=== PATIENT | male | born 1950 | race Caucasian/White ===

== ENCOUNTER 2022-01-30 10:48 | Inpatient (IN) | payer MEDICARE, SELFPAY ==
[2022-01-30 09:56] VITALS: PULSE 72
[2022-01-30 10:40] VITALS: BP 140/87; PULSE 80; RESP 18; TEMP 36.4; O2SAT 100
[2022-01-30 10:53] VITALS: BMI 23.3
--- NOTE | 2022-01-30 10:57 | PCM.HP.STD ---
[facility] - General General Date of Admission: 01/30/22 Date of Service: 01/30/22 Chief Complaint: Multiple times GI bleed today. Exertional chest pain intermittent for last 2 months HPI Narrative INDIANA CLIFFORD, is a 71 M with history of coronary artery disease status post 5 vessel CABG came to ER for sudden onset of massive GI bleed. He woke up in the morning and had black and dark red clotted blood which filled the toilet bowl. After sometimes he had similar 2 more episodes and then went to [place] [facility]. Each time he states it is to coffee cup full. The patient had IV fluid normal saline bolus 500 mL and then was transferred to PCU as a direct admit. Patient did not get any Protonix in the ER there. The patient denies dizziness, lightheadedness, headache or blurry vision. His blood pressure in [place] [facility] 158/90, heart rate 61/min, respiratory rate 20/min afebrile. She denies abdominal pain. He said he had intestinal obstruction most probably colonic obstruction when he was 16-year-old and had bowel rotation most probably colon and biopsy was not Crohn's disease. He denies history of Crohn's disease. 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 He never had any GI problem last 52 years after that. Patient also has history of A. fib but he adamantly denies taking Xarelto. From October this year he is having intermittent flutter waves, feeling of irregular heartbeat, skipped and missed beat. From December onwards he is feeling exertional chest pain mainly left-sided anginal in quality on mild exertion like Oscor's or lifting grocery bag which gets relieved after rest. Getting more frequent. But he denies chest pain or pressure today while last 2 days. Currently is not having any chest pressure. Lab work from [facility] reviewed. We did discussion his assessment and plan. Past medical history paroxysmal A. fib. On baby aspirin. Not taking Xarelto Coronary artery disease status post 5 vessel CABG, CKD stage IIIa, dyslipidemia, hypertension, obstructive sleep apnea, status post CABG, bowel obstruction most probably not an obstruction. Past surgical history 5 vessel CABG. Patient had 1 month, after CABG surgery and had distal ischemia/necrosis last 3 fingers and toes, as per patient no documentary evidence. Patient also has tracheostomy scar. Social history Never been a smoker. Alcohol, beer daily since 04/21/2018. Denies substance use. Family history Heart disease: Mother father and brother. Stroke: In mother Hypertension: Mother and father PFS Medical History Atrial fibrillation Chest pain Hypertension Kidney disease Myocardial infarct Non-smoker Home Medications aspirin 81 mg PO DAILY 01/30/22 [History Last Taken 01/29/22] atenolol 25 mg PO BID 01/30/22 [History Last Taken 01/29/22] lisinopril 10 mg PO DAILY 01/30/22 [History Last Taken 01/29/22] nifedipine 30 mg PO DAILY 01/30/22 [History Last Taken 01/29/22] Allergy/AdvReac Type Severity Reaction Status Date / Time prochlorperazine Allergy Anaphylaxis Verified 01/30/22 11:12 [From Compazine] Family History (Updated 01/30/22 @ 11:04 by Trinity Barnes) Other CVA (cerebral vascular accident) Myocardial infarction Surgical History (Updated 01/30/22 @ 11:04 by Trinity Barnes) History of bowel resection Hx of CABG Social History household members: none housing: house pets and animals: Yes pets and animals: cat(s) Smoking Status: Never smoker substance use type: does not use ROS ROS Narrative Constitutional: Denies headache. No fever HEENT: Tracheostomy scar. Tracheostomy closed. reports systems reviewed and no addt'l complaints, except as documented Respiratory/Chest: Admission HPI Gastrointestinal: As mentioned in HPI Genitourinary: Denies burning urination or new urinary tract symptoms Musculoskeletal: Does not report joint pain and limited range of motion Neurologic: Denies seizure-like activity skin: No ulcer. No rash Endocrinology: Reports systems reviewed and no addt'l complaints, except as documented Hematologic/Lymphatic: Reports systems reviewed and no addt'l complaints, except as documented Rest 14 ROS are negative except as mentioned in HPI Vital Signs Vital Signs Vital Signs: 01/30/22 10:40 Temperature 97.5 F L Temperature Source Temporal Pulse Rate 80 Respiratory Rate 18 Blood Pressure 140/87 H Blood Pressure Mean 104 Blood Pressure Source Monitor Blood Pressure Position Sitting Blood Pressure Location Left Arm Pulse Ox 100 Oxygen Delivery Method Room Air Weight Weight: 162 lb 11.218 oz Body Mass Index (BMI) 23.3 Physical Exam Narrative General: Alert, Oriented x3, Cooperative HEENT: Atraumatic, PERRLA, EOMI, Normocephalic Oral: Oral mucosa dry. No Gingival or Mucosal Lesions/ Ulcerations Neck: Supple, No JVD, Negative Carotid Bruits Lungs: Air entry diminished in bilateral lung bases. No crepitation/rhonchi Cardiovascular: CABG scar. Sinus rhythm on monitor. Rhythm, Normal S1, Normal S2, No murmurs Abdomen: Bowel Sounds Present, Soft, Non Tender, Non-Distended. Transverse surgical scar. Per rectal exam: On inspection on coughing, dark thick blood pouring out. On digital exam, thick clotted blood, dark red blood on finger pouring out. : No renal angle tenderness. No suprapubic tenderness. Extremities: Missing fingers and toes. Admission HPI no edema, Capillary Refill Less than 3 Seconds Skin: No rashes, No breakdown Musculoskeletal: No Tenderness to Palpation of Joints or Extremities Neurological: Cranial nerves II-XII grossly intact, DTR 2+/4 and Symmetrical, Neuro grossly intact Psych/Mental Status: Normal Affect, Appropriate Assessment & Plan Assessment/Plan (1) GI bleed: QUALIFIERS: GI bleed type/associated pathology: unspecified gastrointestinal hemorrhage type Qualified Code(s): K92.2 - Gastrointestinal hemorrhage, unspecified PLAN: 1. Acute sudden onset GI bleed most probably upper GI bleed: Patient is being admitted as direct transfer from [facility] in PCU. Labs reviewed from [facility], hemoglobin 14.2/hematocrit 42.1%. Platelet count 1 97,000. WBC 5.5 thousand. Stat CBC with differential, BMP, PT/INR type and crossmatch ordered. Started on Protonix 80 mg IV bolus and then drip. Discussed with the blood bank calendar control clerk Dr. Baumann. IV fluid for resuscitation. Most recent blood pressure 140/87, heart rate 80/min. No hypoxia or tachypnea. 2. Exertional chest pain most probably angina quality. Twelve-lead EKG from [facility] independently reviewed. Normal sinus rhythm 60/min. QTc interval [address]-T changes suggestive of ischemia. Patient had EKG in PCU on arrival. Normal sinus rhythm at 62 bpm. QTc 458 ms. Troponin ordered. Troponin i-STAT 13.9 normal normal. 3. Electrolyte abnormality, CKD stage IIIa or possible BRYSON on CKD stage III: Patient BUN/creatinine elevated 27/1.51. No previous BUN/creatinine to compare. Potassium 5.4, bicarb 22, anion gap 11. Mild hyperkalemia with normal anion gap metabolic acidosis. CMP is ordered. 4. Paroxysmal A. fib: Home medication list states patient is on baby and Xarelto but is not taking Xarelto. Currently in normal sinus rhythm. 5. 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 He follows outside brush painter Dr. Jaida Padron in [facility]. Does not have any previous echo report. 2D echo ordered. Patient did not have any leg swelling or features suggestive of acute CHF 6. Other comorbidities include hypertension, dyslipidemia, obstructive sleep apnea history of bowel obstructions. Resection in the past. Multiple comorbidities complicates the present care and expect difficult and delay recovery Living will/advanced directive/end of life care: Patient does not have living will or advanced directive. After discussion of benefits/risks procedures involved with full code, DNR CC arrest and DNR CC, the patient opted for full code. Patient does want artificial life support including intubation, tube feed, ventilator and/chest compression, central venous catheter, vasopressor and DC shock if needed Total time spent in [id number] encounter in discussion of advanced directive 16 minutes. Charges/Coding Visit Charges Inpatient E&M: 79538 Init Hosp L3 Procedures Hospitalists Procedures: 55296 Advncd Care Plan 30 Min
--- NOTE | 2022-01-30 11:13 | EKG12_ITS ---
Test Reason : CHF Blood Pressure : / mmHG Vent. Rate : 062 BPM Atrial Rate : 062 BPM P-R Int : 148 ms QRS Dur : 088 ms QT Int : 452 ms P-R-T Axes : 026 -13 020 degrees QTc Int : 458 ms Normal sinus rhythm Low voltage QRS (Limb Leads) Confirmed by JIMMY MILAN, NAZIA ([id number]), editor & co founder GRACIE BLEDSOE ([id number]) on 02/01/2022 11:02:25 AM Referred By: Robel Hollis Confirmed By:NAZIA MARQUEZ MD
--- NOTE | 2022-01-30 11:13 | ECHOD_ITS ---
Reason For Study: A. fib/flutter Procedure This was a 2D Doppler, Color Flow transthoracic echocardiogram. The study was technically difficult. Exam performed portable in patient room. Left Ventricle Normal LV size. Mild concentric left ventricular hypertrophy. Apical false tendon noted. Left ventricular systolic function is normal. The estimated ejection fraction is 65 %. No evidence for diastolic dysfunction. No regional wall motion abnormalities noted. Right Ventricle Normal RV size. Normal systolic function. Atria Normal left atrium. Normal right atrium. No doppler evidence for ASD. Bubble contrast study negative for right to left interatrial shunt. Mitral Valve There is no mitral annular calcification. Normal mitral valve. Trivial mitral valve insufficiency. Tricuspid Valve Normal tricuspid valve. Trivial tricuspid valve insufficiency. Right ventricular systolic pressure estimated to be 22 mmHg. Aortic Valve Trisinus/trileaflet aortic valve. Normal aortic valve. Pulmonic Valve The pulmonic valve is not well visualized. Trivial pulmonic valve insufficiency. Great Vessels Normal sized aortic root. Pericardium/Pleural No pericardial effusion. Medication Performed a rapid injection of agitated mix of 9 cc saline and 1cc air to assess for atrial septal defect. MMode/2D Measurements & Calculations LVIDd: 4.3 cm IVSd: 1.3 cm Ao root diam: 3.4 cm LVIDs: 2.4 cm LVPWd: 1.3 cm RVDd: 2.9 cm FS: 44.0 % LAV(MOD-bp): 36.8 ml LVAd ap4: 21.2 cm2 LVAd ap2: 21.0 cm2 LAV(MOD-bp) Indexed: 19.3 ml/m2 LVLd ap4: 7.4 cm LVLd ap2: 7.0 cm LAV(MOD-sp2): 38.1 ml EDV(MOD-sp4): 51.4 ml EDV(MOD-sp2): 53.9 ml LAV(MOD-sp4): 35.1 ml EDV(sp4-el): 51.5 ml EDV(sp2-el): 52.9 ml LVAs ap4: 11.5 cm2 LVAs ap2: 11.1 cm2 LVLs ap4: 6.7 cm LVLs ap2: 6.3 cm ESV(MOD-sp4): 17.8 ml ESV(MOD-sp2): 18.3 ml ESV(sp4-el): 16.8 ml ESV(sp2-el): 16.8 ml EF(MOD-sp4): 65.5 % EF(MOD-sp2): 66.1 % EF(sp4-el): 67.3 % SV(MOD-sp4): 33.6 ml SV(MOD-sp2): 35.6 ml SV(sp4-el): 34.7 ml LA A4 area: 15.1 cm2 RA A4 area: 14.1 cm2 Doppler Measurements & Calculations MV E max kishore: 49.3 cm/sec Lat Peak E' Kishore: 8.3 cm/sec Med Peak E' Kishore: 4.5 cm/sec MV A max kishore: 76.0 cm/sec E/E' lat: 5.9 E/E' med: 10.9 MV E/A: 0.65 Ao V2 max: 121.5 cm/sec LV V1 max: 113.8 cm/sec PA V2 max: 84.4 cm/sec Ao max P.9 mmHg LV V1 max P.2 mmHg TR max kishore: 215.9 cm/sec TR max P.8 mmHg ECHO/Echo Complete Interpretation Summary The study was technically difficult. Left ventricular systolic function is normal. The estimated ejection fraction is 65 %. Mild concentric left ventricular hypertrophy. Apical false tendon noted. Trivial mitral valve insufficiency. Trivial tricuspid valve insufficiency. Trivial pulmonic valve insufficiency. Right ventricular systolic pressure estimated to be 22 mmHg. No evidence for diastolic dysfunction. Bubble contrast study negative for right to left interatrial shunt. Ordering Physician: Robel Hollis Referring Physician: Jaida Padron Performed By: Angeles Arechiga RDCS
[2022-01-30 12:07] LABS: International Normalized Ratio 1.1; Prothrombin Time (Protime)PT. 13.6 SECONDS (11.7-14.9)
[2022-01-30] MEDS: 0.9% Normal Saline 1,000 ML 75 ML IV (12:08)
[2022-01-30 12:16] LABS: Absolute Lymphocyte Count 0.72 X10^3/uL (0.83-4.51); Absolute Neutrophil Count 5.4 X10^3/uL (2.0-7.7); Basophil# 0.04 X10^3/uL; Basophil% 0.6 % (0-1); Eosinophil# 0.07 X10^3/uL; Eosinophils% 1.1 % (0-5); Hematocrit 33.4 % (40-54); Hemoglobin 11.5 g/dL (13.0-16.5); Lymphocyte # 0.72 X10^3/ul (0.83-4.51); Mean Corp Hgb Conc 34.4 g/dL (32-36); Mean Corpuscular Hgb 30.3 pg (27.0-32.0); Mean Corpuscular Volume 87.9 fL (80-94); Mean Platelet Vol. 9.5 fl (6.2-12.0); Monocyte# 0.32 X10^3/uL; Monocyte% 4.9 % (0-10); NRBC Flagged by Analyzer 0 % (0-5); Neutrophil # 5.39 X10^3/uL (2.7-7.7); Neutrophil % 82.2 % (47-70); Platelet Count 196 K/mm3 (150-450); RBC Distribution Width CV 13.4 % (11.6-14.6); RBC Distribution Width SD 43.1 fl (35.1-43.9); White Blood Count 6.6 K/mm3 (4.4-11.0)
[2022-01-30 12:27] LABS: AST(SGOT) 28 U/L (15-37); Alanine Aminotransfer ALT/SGPT 18 U/L (16-61); Alkaline Phosphatase 81 U/L (45-117); Anion Gap 5 (5-15); BUN 25 mg/dL (7-18); BUN/Creat Ratio 18.9 RATIO (10-20); Calcium,Total 8.3 mg/dL (8.5-10.1); Chloride 115 mmol/L (98-107); Creatinine, Serum 1.32 mg/dL (0.70-1.30); EST Glomerular Filtration Rate 57 mL/min (>60); Est Glom Filt Rate - Afr Amer 68 mL/min (>60); Estimated Creatinine Clearance 52.23 ml/min; Globulin 2.9 g/dL (2.2-4.2); Glucose 107 mg/dL (74-106); Magnesium 2.2 mg/dL (1.6-2.6); Phosphorus 2.4 mg/dL (2.5-4.9); Potassium 4.7 mmol/L (3.5-5.1); Protein, Total 5.9 g/dL (6.4-8.2); Sodium Level 141 mmol/L (136-145); Troponin-I HS 9 pg/mL (3.0-78.0)
[2022-01-30] MEDS: Bisacodyl 5 MG Tablet 20 MG PO (14:36)
[2022-01-30 14:45] VITALS: PULSE 65
[2022-01-30 14:54] LABS: Troponin-I HS 10 pg/mL (3.0-78.0)
[2022-01-30] MEDS: Electrolyte Solution/Peg's 4000 ML PO (15:37)
--- NOTE | 2022-01-30 15:40 | CHAPLAIN ---
Type of Pastoral Visit _x__ Initial Visit ___ Follow-up Visit ___ On-call Visit ___ General Patient Visit ___ Spiritual Assessment ___ Family Conference ___ Bereavement ___ Rapid Response ___ Code Blue ___ Other (describe below) Pastoral Care Referral From _x__ Patient ___ Family ___ Nurse ___ Physician ___ Community Program Assistant ___ Qc Scientist ___ Other (describe below) Sacrament/Intervention _x__ Active listening ___ Anointing ___ Mandaen ___ Bereavement ___ Communion _x__ Maria De Jesus exploration ___ ___ Life review _x__ Prayer ___ Reconciliation ___ Sacrament of Sick ___ Supportive presence ___ Wedding ___ Other (describe below) Pastoral Comments patient was eager to talk with this mother baby rn; pt gave review of his maria de jesus journey; pt received his meal tray and asked if mother baby rn would please come back tomorrow to talk more; agreed on this plan
[2022-01-30] MEDS: Ensure Clear 120 ML Liquid PO (16:21)
[2022-01-30 16:25] VITALS: BP 129/81; PULSE 75; RESP 16; TEMP 36.6; O2SAT 100
--- NOTE | 2022-01-30 17:32 | CON.PCM.GI_ITS ---
HPI Consult Data Date of Consult: 01/30/22 HPI Narrative HPI Narrative: INDIANA CLIFFORD, is a 71 M who presents after having multiple episodes of lower GI bleeding. He has a history of CAD status post CABG and atrial fibrillation not on anticoagulation as per the patient. Patient said he was home when he felt like he needed to go to the bathroom due to to some crampy abdominal pain. He had multiple episodes of bright red blood per rectum. He went to [facility] for evaluation. At [facility] he had 2 more episodes. He was transferred here for evaluation due to no GI coverage at that hospital. He takes aspirin on a daily basis. His other past medical history is CAD, CKD, dyslipidemia, hypertension, DEO, possible bowel obstruction status post colonic resection with primary anastomosis. I was called to see him for GI bleed [facility] Medical History Atrial fibrillation Chest pain Hypertension Kidney disease Myocardial infarct Non-smoker Home Medications aspirin 81 mg PO DAILY 01/30/22 [History Last Taken 01/29/22] atenolol 25 mg PO BID 01/30/22 [History Last Taken 01/29/22] lisinopril 10 mg PO DAILY 01/30/22 [History Last Taken 01/29/22] nifedipine 30 mg PO DAILY 01/30/22 [History Last Taken 01/29/22] Allergy/AdvReac Type Severity Reaction Status Date / Time prochlorperazine Allergy Anaphylaxis Verified 01/30/22 11:12 [From Compazine] Family History (Updated 01/30/22 @ 11:04 by Trinity Barnes) Other CVA (cerebral vascular accident) Myocardial infarction Surgical History (Updated 01/30/22 @ 11:04 by Trinity Barnes) History of bowel resection Hx of CABG Social History (Updated 01/30/22 @ 11:04 by Trinity Barnes) household members: none housing: house pets and animals: Yes pets and animals: cat(s) Smoking Status: Never smoker substance use type: does not use ROS Gastrointestinal Gastrointestinal: Reports hematochezia Physical Exam Const alert General Appearance: cooperative Orientation / Consciousness: oriented to person HEENT hearing grossly normal bilaterally Head and Scalp: normal to inspection Face and Sinus: face symmetric Nose: external nose normal Mouth: oral and palatal mucosa normal Eyes conjunctivae normal General Eye: normal appearance of both eyes Neck full ROM General: normal visual inspection Lymph Lymphatic: no lymphadenopathy noted Chest inspection of chest normal and palpation of chest normal Chest: symmetrical chest wall rise Resp normal respiratory effort Effort and Inspection: able to speak in complete sentences Cardio regular rate GI non-distended Percussion: normal to percussion Rectal Exam: deferred Neuro Speech: speech normal Gait (Neuro): normal gait Lab / Micro Data Result Diagrams: 01/30/22 11:40 01/30/22 11:40 Labs: Laboratory Results - last 24 hr 01/30/22 11:40: WBC 6.6, RBC 3.80 L, Hgb 11.5 L, Hct 33.4 L, MCV 87.9, MCH 30.3, MCHC 34.4, RDW Std Deviation 43.1, RDW Coeff of Navneet 13.4, Plt Count 196, MPV 9.5, Immature Gran % (Auto) 0.200, Neut % (Auto) 82.2 H, Lymph % (Auto) 11.0 L, Gladwin % (Auto) 4.9, Eos % (Auto) 1.1, Baso % (Auto) 0.6, Absolute Neuts (auto) 5.4, Absolute Lymphs (auto) 0.72 L, Nucleated RBC % 0 01/30/22 11:40: PT 13.6, INR 1.1 01/30/22 11:40: Sodium 141, Potassium 4.7, Chloride 115 H, Carbon Dioxide 21.0, Anion Gap 5, BUN 25 H, Creatinine 1.32 H, Estim Creat Clear Calc 52.23, Est GFR (MDRD) Af Amer 68, Est GFR (MDRD) Non-Af 57 L, BUN/Creatinine Ratio 18.9, Glucose 107 H, Calcium 8.3 L, Phosphorus 2.4 L, Magnesium 2.2, Total Bilirubin 0.40, AST 28, ALT 18, Alkaline Phosphatase 81, Troponin I High Sens 9, Total Protein 5.9 L, Albumin 3.0 L, Globulin 2.9, Albumin/Globulin Ratio 1.0 01/30/22 11:40: Blood Type O NEGATIVE, Antibody Screen NEGATIVE, Crossmatch See Detail 01/30/22 14:10: Troponin I High Sens 10 Radiology Impression Echocardiogram 01/30/22 11:13 Interpretation Summary The study was technically difficult. Left ventricular systolic function is normal. The estimated ejection fraction is 65 %. Mild concentric left ventricular hypertrophy. Apical false tendon noted. Trivial mitral valve insufficiency. Trivial tricuspid valve insufficiency. Trivial pulmonic valve insufficiency. Right ventricular systolic pressure estimated to be 22 mmHg. No evidence for diastolic dysfunction. Bubble contrast study negative for right to left interatrial shunt. Ordering Physician: Robel Hollis Referring Physician: Jaida Padron Performed By: Angeles Arechiga RDCS Assessment & Plan Assessment/Plan (1) GI bleed: QUALIFIERS: GI bleed type/associated pathology: unspecified gastrointestinal hemorrhage type Qualified Code(s): K92.2 - Gastrointestinal hemorrhage, unspecified PLAN: The differential diagnosis for his GI bleed could include upper GI b leed with rapid transit, peptic ulcer disease secondary to NSAIDs and/or anticoagulation, AVMs, ischemic colitis, bleeding and his previous site of anastomosis, hemorrhoidal bleeding. He should undergo an upper lower endoscopy for evaluation of the GI tract. He was explained alternatives, risks and benefits including not withstanding bleeding, infection, sepsis, perforation, need for emergent surgery will have an ASA of 3. Charges/Coding Visit Charges Inpatient E&M: 45866 Init Hosp L2
[2022-01-30 18:16] LABS: Hematocrit 35.5 % (40-54); Hemoglobin 11.5 g/dL (13.0-16.5)
[2022-01-30 18:33] LABS: Troponin-I HS 12 pg/mL (3.0-78.0)
[2022-01-30 19:00] VITALS: PULSE 66
[2022-01-30 21:32] VITALS: BP 133/82; PULSE 66; RESP 16; TEMP 36.6; O2SAT 98
[2022-01-30 23:33] LABS: Hematocrit 30.1 % (40-54); Hemoglobin 10.4 g/dL (13.0-16.5)
[2022-01-31] VITALS (14 sets, daily range): BP systolic 124–154; BP diastolic 57–87; PULSE 63–79; RESP 14–18; TEMP 36.5–37.1; O2SAT 95–100; BMI 23.2
[2022-01-31] MEDS: 0.9% Normal Saline 1,000 ML 75 ML IV (00:53)
[2022-01-31 06:00] LABS: Absolute Lymphocyte Count 0.99 X10^3/uL (0.83-4.51); Absolute Neutrophil Count 2.7 X10^3/uL (2.0-7.7); Basophil# 0.03 X10^3/uL; Basophil% 0.7 % (0-1); Eosinophil# 0.19 X10^3/uL; Eosinophils% 4.4 % (0-5); Hematocrit 25.7 % (40-54); Hemoglobin 8.8 g/dL (13.0-16.5); Lymphocyte # 0.99 X10^3/ul (0.83-4.51); Lymphocyte % 22.9 % (19-41); Mean Corp Hgb Conc 34.2 g/dL (32-36); Mean Corpuscular Hgb 30.2 pg (27.0-32.0); Mean Corpuscular Volume 88.3 fL (80-94); Mean Platelet Vol. 9.6 fl (6.2-12.0); Monocyte# 0.39 X10^3/uL; NRBC Flagged by Analyzer 0 % (0-5); Neutrophil # 2.73 X10^3/uL (2.7-7.7); Platelet Count 157 K/mm3 (150-450); RBC Distribution Width CV 13.4 % (11.6-14.6); RBC Distribution Width SD 43.8 fl (35.1-43.9); Red Blood Count 2.91 M/mm3 (4.6-6.2); White Blood Count 4.3 K/mm3 (4.4-11.0)
[2022-01-31 06:47] LABS: Anion Gap 8 (5-15); BUN 20 mg/dL (7-18); BUN/Creat Ratio 14.8 RATIO (10-20); Chloride 112 mmol/L (98-107); Cholesterol 116 mg/dL (200); Creatinine, Serum 1.35 mg/dL (0.70-1.30); EST Glomerular Filtration Rate 55 mL/min (>60); Est Glom Filt Rate - Afr Amer 67 mL/min (>60); Estimated Creatinine Clearance 51.07 ml/min; Glucose 93 mg/dL (74-106); High Density Lipoprotein 29 mg/dL; Sodium Level 142 mmol/L (136-145); Thyroid Stim Hormone (TSH) 1.11 uIU/mL (0.358-3.74); Triglycerides 154 mg/dL; Very Low Density Lipoprotein 31 mg/dL (5-40)
--- NOTE | 2022-01-31 07:49 | PCM.PN.HOSP ---
Subjective Subjective Patient bleeding is stopped after starting the IV Protonix drip. His hemoglobin dropped from 10.4-8.8. Patient denies chest pain, shortness of breath or dizziness. He had colonoscopy prep and had clear liquid stool. Plan for EGD and colonoscopy today Objective Data Objective Data Vital Signs: Vital Signs Temp Pulse Resp BP Pulse Ox 98.1 F 65 16 145/77 H 98 01/31/22 03:30 01/31/22 07:07 01/31/22 03:30 01/31/22 03:30 01/31/22 03:30 Oxygen Delivery Method Room Air Weight: 162 lb 0.636 oz Body Mass Index (BMI) 23.2 Intake & Output: Intake and Output for Last 24 Hours 01/29/22 01/30/22 01/31/22 23:59 23:59 23:59 Intake Total 2495 / 2495 955 / 955 Balance 2495 / 2495 955 / 955 Lab / Micro Data Result Diagrams: 01/31/22 05:30 01/31/22 05:30 Labs: Laboratory Results - last 24 hr 01/30/22 11:40: WBC 6.6, RBC 3.80 L, Hgb 11.5 L, Hct 33.4 L, MCV 87.9, MCH 30.3, MCHC 34.4, RDW Std Deviation 43.1, RDW Coeff of Navneet 13.4, Plt Count 196, MPV 9.5, Immature Gran % (Auto) 0.200, Neut % (Auto) 82.2 H, Lymph % (Auto) 11.0 L, Cambria % (Auto) 4.9, Eos % (Auto) 1.1, Baso % (Auto) 0.6, Absolute Neuts (auto) 5.4, Absolute Lymphs (auto) 0.72 L, Nucleated RBC % 0 01/30/22 11:40: PT 13.6, INR 1.1 01/30/22 11:40: Sodium 141, Potassium 4.7, Chloride 115 H, Carbon Dioxide 21.0, Anion Gap 5, BUN 25 H, Creatinine 1.32 H, Estim Creat Clear Calc 52.23, Est GFR (MDRD) Af Amer 68, Est GFR (MDRD) Non-Af 57 L, BUN/Creatinine Ratio 18.9, Glucose 107 H, Calcium 8.3 L, Phosphorus 2.4 L, Magnesium 2.2, Total Bilirubin 0.40, AST 28, ALT 18, Alkaline Phosphatase 81, Troponin I High Sens 9, Total Protein 5.9 L, Albumin 3.0 L, Globulin 2.9, Albumin/Globulin Ratio 1.0 01/30/22 11:40: Blood Type O NEGATIVE, Antibody Screen NEGATIVE, Crossmatch See Detail 01/30/22 14:10: Troponin I High Sens 10 01/30/22 18:00: Hgb 11.5 L, Hct 35.5 L 01/30/22 18:00: Troponin I High Sens 12 01/30/22 23:10: Hgb 10.4 L, Hct 30.1 L 01/31/22 05:30: WBC 4.3 L, RBC 2.91 L, Hgb 8.8 L, Hct 25.7 L, MCV 88.3, MCH 30.2, MCHC 34.2, RDW Std Deviation 43.8, RDW Coeff of Navneet 13.4, Plt Count 157, MPV 9.6, Immature Gran % (Auto) 0.000, Neut % (Auto) 63.0, Lymph % (Auto) 22.9, Cambria % (Auto) 9.0, Eos % (Auto) 4.4, Baso % (Auto) 0.7, Absolute Neuts (auto) 2.7, Absolute Lymphs (auto) 0.99, Nucleated RBC % 0 01/31/22 05:30: Sodium 142, Potassium 4.0, Chloride 112 H, Carbon Dioxide 22.0, Anion Gap 8, BUN 20 H, Creatinine 1.35 H, Estim Creat Clear Calc 51.07, Est GFR (MDRD) Af Amer 67, Est GFR (MDRD) Non-Af 55 L, BUN/Creatinine Ratio 14.8, Glucose 93, Calcium 8.0 L, Triglycerides 154, Cholesterol 116, LDL Cholesterol 56, VLDL Cholesterol 31, HDL Cholesterol 29 L, TSH 1.11 Micro: Microbiology 01/30/22 17:50 Nasal Secretion SARS-CoV-2 Antigen (Rapid) - Final Radiography Diagnostic Testing: Radiology Impression Echocardiogram 01/30/22 11:13 Interpretation Summary The study was technically difficult. Left ventricular systolic function is normal. The estimated ejection fraction is 65 %. Mild concentric left ventricular hypertrophy. Apical false tendon noted. Trivial mitral valve insufficiency. Trivial tricuspid valve insufficiency. Trivial pulmonic valve insufficiency. Right ventricular systolic pressure estimated to be 22 mmHg. No evidence for diastolic dysfunction. Bubble contrast study negative for right to left interatrial shunt. Ordering Physician: Robel Hollis Referring Physician: Jaida Padron Performed By: Angeles Arechiga RDCS Physical Exam Narrative General: Alert, Oriented x3, Cooperative HEENT: Atraumatic, PERRLA, EOMI, Normocephalic Oral: Oral mucosa dry. No Gingival or Mucosal Lesions/ Ulcerations Neck: Supple, No JVD, Negative Carotid Bruits Lungs: Air entry diminished in bilateral lung bases. No crepitation/rhonchi Cardiovascular: CABG scar. Sinus rhythm on monitor. Rhythm, Normal S1, Normal S2, No murmurs Abdomen: Bowel Sounds Present, Soft, Non Tender, Non-Distended. Transverse surgical scar. Per rectal exam: Clear liquid stool. : No renal angle tenderness. No suprapubic tenderness. Extremities: Missing fingers and toes. Admission HPI no edema, Capillary Refill Less than 3 Seconds Skin: No rashes, No breakdown Musculoskeletal: No Tenderness to Palpation of Joints or Extremities Neurological: Cranial nerves II-XII grossly intact, DTR 2+/4 and Symmetrical, Neuro grossly intact Psych/Mental Status: Normal Affect, Appropriate Assessment & Plan Assessment/Plan (1) GI bleed: QUALIFIERS: GI bleed type/associated pathology: unspecified gastrointestinal hemorrhage type Qualified Code(s): K92.2 - Gastrointestinal hemorrhage, unspecified PLAN: 1. Acute sudden onset GI bleed most probably upper GI bleed: Patient is being admitted as direct transfer from [facility] in PCU. Labs reviewed from [facility], hemoglobin 14.2/hematocrit 42.1%. Platelet count 1 97,000. WBC 5.5 thousand. Stat CBC with differential, BMP, PT/INR type and crossmatch ordered. Started on Protonix 80 mg IV bolus and then drip. Discussed with the electronics system mechanic Dr. Baumann. IV fluid for resuscitation. Most recent blood pressure 140/87, heart rate 80/min. No hypoxia or tachypnea. 01/31: Acute blood loss anemia secondary to GI bleed most likely upper GI bleed with rapid transit/PUD, or lower AVM/ischemic colitis/anastomotic bleeding. EGD and colonoscopy scheduled. Hemoglobin dropped to 8.8 g%. 250 mg IV iron ordered 2. Exertional chest pain most probably angina quality. Twelve-lead EKG from [place] [facility] independently reviewed. Normal sinus rhythm 60/min. QTc interval [address]-T changes suggestive of ischemia. Patient had EKG in PCU on arrival. Normal sinus rhythm at 62 bpm. QTc 458 ms. 01/31: Fasting profile LDL 56, HDL 29. TSH 1.1. Serial hs- troponin normal. 2D echo reviewed, EF 65%, mild concentric LVH. RVSP 22 mmHg 3. Electrolyte abnormality, CKD stage IIIa or possible BRYSON on CKD stage III: Patient BUN/creatinine elevated 27/1.51. No previous BUN/creatinine to compare. Potassium 5.4, bicarb 22, anion gap 11. Mild hyperkalemia with normal anion gap metabolic acidosis. CMP is ordered. 01/31: Phosphorus 2.4, magnesium 2.2. IV potassium replacement 4. Paroxysmal A. fib: Home medication list states patient is on baby and Xarelto but is not taking Xarelto. Currently in normal sinus rhythm. 5. 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 He follows outside hand crown pouncer Dr. Jaida Padron in [facility]. Does not have any previous echo report. Patient did not have any leg swelling or features suggestive of acute CHF 6. Other comorbidities include hypertension, dyslipidemia, obstructive sleep apnea history of bowel obstructions. Resection in the past. Multiple comorbidities complicates the present care and expect difficult and delay recovery Total time of the visit including total time spent in counseling or coordination of care, (more than 50% of the total time, spent in obtaining medical information from nurses and other ancillary care providers,explaining to the patient about labs, imaging, diagnosis and management), discussion with business transformation consultant, review of labs and imaging is 40 minutes. Living will/advanced directive/end of life care: Patient does not have living will or advanced directive. After discussion of benefits/risks procedures involved with full code, DNR CC arrest and DNR CC, the patient opted for full code. Patient does want artificial life support including intubation, tube feed, ventilator and/chest compression, central venous catheter, vasopressor and DC shock if needed Charges/Coding Visit Charges Inpatient E&M: 59252 Subs Hosp L3
[2022-01-31] MEDS: 0.9% Saline Lock 10 ML Syringe IV (08:53)
--- NOTE | 2022-01-31 11:30 | CASEMGMT ---
RN CM INSTRUMENT MAKER APPRENTICE CM to room to meet with patient for initial transition planning/care coordination assessment. MARY AVILA introduced self and role at [facility]. Pt voices understanding and consents to assessment at this time. Pt resting in bed in no distress at this time. Pt is A/O at this time and answers all questions appropriately. Care providers, pharmacy, and demographics verified/updated at this time. PCP: Pt has no PCP. Pt states plans to see a PCP @ [facility] and will f/u w/FIELD TECH re: same. He does not want a list of PCP's in [facility]. Specialists: Jaida Padron NP--cardiology Preferred Pharmacy: [facility] Retail Insurance: [employer] Prescription Benefit: Yes Living Will/HPOA: Pt does not currently have LW/HCPOA and declines info at this time. Pt made aware that he can contact as an out-pt and make appt in the future if he decides he would like to talk with someone about this or would like to utilize [facility] social work for advanced directive completion. LNOK: . Sister, Gloria Living Arrangements: Lives alone in 2-story home w/6 steps to enter. Bedroom on 2nd floor. Pt states does well with the stairs. Independent w/ADL's and IADL's. currently lives w/her daughter in [place]. Transportation: Pt states drives self. He inquired about assistance w/transportation home, as his sister lives in [place] and he prefers not to ask his neighbor to take him home. Pt made aware of [facility] Van transportation service and he states would like to utilize that. DME: Denies using any DME and denies needs. Pt states he does not wear a PAP, stating he has never had a sleep study and never diagnosed w/sleep apnea. HHC/SNF: SNF @ [facility] and [facility] after TX and CABG in 2013. Pt wishes to return home and states has no concerns with going home at time of discharge. CM to follow for any discharge planning/needs. Pt voices no concerns/needs at this time. Advised pt to ask for CM if any questions/concerns/needs arise. Voices understanding. PLAN: Home w/discharge plans in place. Jamie BHATTI RN, CM
--- NOTE | 2022-01-31 13:00 | EGD_PTH ---
PATIENT: INDIANA CLIFFORD LOC: [facility] U#:[id number] AGE/SX: 71/M ROOM: [facility] RE01/30/[address]: Dr. Robel Hollis MD : 1950 BED: 1 DIS: 02/02/2022 SPEC #: [id number] RECD: 01/31/22 17:11 STATUS: LACEY RE #: [id number] ZACHARIAH: 01/31/22 13:[address]: Luis Alberto Baumann DEPT: SURGICAL PATHOLOGY RECD BY: Dora Pimentel ENTERED: 02/01/22 08:19 SP TYPE: EGD BIOPSY OTHR DR: MD Jaida Llanes, EVENT ORGANIZER-C Tissues: A - Gastric mucous membrane B - Duodenum, NOS C - Cecum, NOS D - Ileum, NOS Procedures: Surgery Specimen Level IV Comments: @ Ordering doctor for SUIV edited from to @ by ANIRUDH at 02/02/22 075 @ Submitting doctor edited from to @ by ANIRUDH at 02/02/22751 HEADER OPERATION: Colonoscopy, EGD ([facility]), biopsy, dilation PRE-OP DIAGNOSIS: GI bleed TISSUE SUBMITTED: A ? Gastric ulcer biopsy, B ? Duodenal ulcer biopsy, C ? Ileocecal anastomosis biopsy, D ? Terminal ileum biopsy MICROSCOPIC DIAGNOSIS A. Gastric ulcer, biopsy: Mild gastritis. See microscopic description and comment. B. Duodenal ulcer, biopsy: Fragments of duodenal mucosa with Marina gland hyperplasia. C. Ileocecal anastomosis, biopsy: Fragments of colonic mucosa with mild nonspecific chronic inflammation. D. Terminal ileum, biopsy: Fragments of small intestinal mucosa, no pathologic diagnosis. SJ:phuong 02/02/2022 COMMENT A. The results of immunohistochemistry for Helicobacter pylori will be reported separately ([id number]). MICROSCOPIC DESCRIPTION Slides are reviewed. A. The specimen shows fragments of gastric mucosa with chronic inflammatory cell infiltrates in the lamina propria consisting of lymphocytes and plasma cells, consistent with mild chronic gastritis. GROSS DESCRIPTION A - Received is one container labeled with the patient's name and not further designated. The specimen consists of one irregular fragment of light chang soft tissue that measures 0.6 x 0.3 x 0.1 cm. The specimen is totally submitted in one cassette. B - Received in fixative is one container labeled with the patient's name and designated duodenal ulcer biopsy. The specimen consists of two irregular fragments of light chang soft tissue that in aggregate measure 0.7 x 0.3 x 0.1 cm. The specimen is totally submitted in one cassette. C - Received in fixative is one container labeled with the patient's name and designated ileocecal anastomosis biopsy. The specimen consists of multiple irregular fragments of light chang soft tissue that in aggregate measure 1 x 0.6 x 0.1 cm. The specimen is totally submitted in one cassette. D - Received in fixative is one container labeled with the patient's name and designated terminal ileum biopsy. The specimen consists of two irregular fragments of light chang soft tissue that in aggregate measure 0.7 x 0.2 x 0.1 cm. The specimen is totally submitted in one cassette. / AM:phuong 02/01/2022 TC:3 CPT: 24522 x4
--- NOTE | 2022-01-31 13:00 | IMM_PTH ---
PATIENT: INDIANA CLIFFORD LOC: [facility] U#:[id number] AGE/SX: 71/M ROOM: [facility] RE01/30/[address]: Dr. Robel Hollis MD : 1950 BED: 1 DIS: 02/02/2022 SPEC #: [id number] RECD: 02/01/22 08:51 STATUS: LACEY REQ #: [id number] ZACHARIAH: 01/31/22 13:[address]: Luis Alberto Baumann DEPT: IMMUNOHISTOCHEMISTRY RECD BY: Ana Hurd ENTERED: 02/01/22 08:51 SP TYPE: IMMUNO OTHR DR: MD Jaida Llanes NP-[place] Tissues: A - Stomach, NOS Procedures: H Pylori (initial) PHYSICIAN & INSTITUTION [place] [id number] SPECIMEN INFORMATION: Tissue Source: A ? Gastric ulcer biopsy Clinical Info: GI bleed Specimen Number: [id number] CPT code: 88045 METHODOLOGY: Deparaffinized sections of prefer/formalin-fixed tissue or PAP/DQ stained slides are incubated with monoclonal/polyclonal antibodies/oligonucleotide probes. Localization is made via biotin free immunoperoxidase method. Appropriate controls are performed and reacted as expected. Results on target cell population are indicated in the following table: RESULTS: ANTIBODY / CLONE RESULT Block A H Pylori (polyclonal) negative These tests were developed and their performance characteristics determined by [facility]. They may not have been cleared or approved by the U.S. Food and Drug Administration. The FDA has determined that such clearance or approval is not necessary. The above immunohistochemical/dualISH markers are ordered and reviewed by the Pathologist. INTERPRETATION: A. Gastric ulcer, biopsy: Negative for Helicobacter pylori organisms. SJ:phuong 02/02/2022
--- NOTE | 2022-01-31 15:27 | CHAPLAIN ---
Type of Pastoral Visit ___ Initial Visit _x__ Follow-up Visit ___ On-call Visit ___ General Patient Visit ___ Spiritual Assessment ___ Family Conference ___ Bereavement ___ Rapid Response ___ Code Blue ___ Other (describe below) Pastoral Care Referral From _x__ Patient ___ Family ___ Nurse ___ Physician ___ Vfx Artist ___ Genetic Engineer ___ Other (describe below) Sacrament/Intervention _x__ Active listening ___ Anointing ___ Mandaeism ___ Bereavement ___ Communion _x__ Maria De Jesus exploration ___ ___ Life review _x__ Prayer ___ Reconciliation ___ Sacrament of Sick _x__ Supportive presence ___ Wedding ___ Other (describe below) Pastoral Comments patient is resting and waiting for scope to be started later this afternoon; pt is welcoming of company to keep me from boredom and to elaborate on his goals for scientologist travel and exploration of maria de jesus; pt is talkative and leads conversation; prayer is welcomed too;
--- NOTE | 2022-01-31 17:07 | OP.COLON_ITS ---
Patient Name: Benson Sigala Procedure Date: 01/31/2022 4:38 PM Date of : 1950 Age: 71 Procedure: Colonoscopy Indications: Hematochezia Providers: Luis Alberto Baumann DO Referring MD: Robel Hollis Medicines: Sedation Required Anesthesia Staff Assistance Patient Profile: This is a 71 year old male. Refer to note in patient chart for documentation of history and physical. Last Colonoscopy: more than 10 years ago. Complications: No immediate complications. Procedure: Pre-Anesthesia Assessment: - Prior to the procedure, a History and Physical was performed, and patient medications and allergies were reviewed. The risks and benefits of the procedure and the sedation options and risks were discussed with the patient. All questions were answered and informed consent was obtained. Patient identification and proposed procedure were verified by the physician in the pre-procedure area. Mental Status Examination: alert and oriented. Airway Examination: normal oropharyngeal airway and neck mobility. Respiratory Examination: clear to auscultation. CV Examination: normal. Prophylactic Antibiotics: The patient does not require prophylactic antibiotics. Prior Anticoagulants: The patient has taken no previous anticoagulant or antiplatelet agents. After reviewing the risks and benefits, the patient was deemed in satisfactory condition to undergo the procedure. The anesthesia plan was to use moderate sedation / analgesia (conscious sedation). Immediately prior to administration of medications, the patient was re-assessed for adequacy to receive sedatives. The heart rate, respiratory rate, oxygen saturations, blood pressure, adequacy of pulmonary ventilation, and response to care were monitored throughout the procedure. The physical status of the patient was re-assessed after the procedure. After I obtained informed consent, the scope was passed under direct vision. Throughout the procedure, the patient's blood pressure, pulse, and oxygen saturations were monitored continuously. The pediatric colonoscope was introduced through the anus and advanced to the terminal ileum. The terminal ileum, ileocecal valve, appendiceal orifice, and rectum were photographed. Moderate Sedation: Moderate (conscious) sedation was administered by the endoscopy nurse and supervised by the endoscopist. The patient's oxygen saturation, heart rate, blood pressure and response to care were monitored. Total physician intraservice time was 15 minutes. Scope In: 4:40:52 PM Scope Withdrawal Time 0 hours 11 minutes 28 seconds Scope Out: 4:56:33 PM Total Procedure Duration Time 0 hours 15 minutes 41 seconds Findings: The perianal and digital rectal examinations were normal. Multiple small and large-mouthed diverticula were found in the recto-sigmoid colon, sigmoid colon, descending colon, splenic flexure and transverse colon. There was evidence of recent bleeding from the diverticular opening. There was evidence of a prior end-to-side ileo-colonic anastomosis in the ascending colon. This was non-patent and was characterized by erosion, erythema, inflammation and ulceration. The anastomosis was traversed after dilation. Biopsies were taken with a cold forceps for histology. Verification of patient identification for the specimen was done. A TTS dilator was passed through the scope. Dilation with a 15 mm colonic balloon dilator was performed. The dilation site was examined following endoscope reinsertion and showed complete resolution of luminal narrowing. Estimated blood loss was minimal. Patchy inflammation, moderate in severity and characterized by congestion (edema) and friability was found in the distal ileum. Biopsies were taken with a cold forceps for histology. Verification of patient identification for the specimen was done. Estimated blood loss was minimal. Hemorrhoids were found on perianal exam. The exam was otherwise without abnormality on direct and retroflexion views. Impression: - Severe diverticulosis in the recto-sigmoid colon, in the sigmoid colon, in the descending colon, at the splenic flexure and in the transverse colon. There was evidence of recent bleeding from the diverticular opening. - Non-patent end-to-side ileo-colonic anastomosis, characterized by erosion, erythema, inflammation and ulceration. Biopsied. Dilated. - Inflammatory bowel disease. Biopsied. - Hemorrhoids found on perianal exam. - The examination was otherwise normal on direct and retroflexion views. Recommendation: - [facility]. - Advance diet as tolerated today. - No aspirin, ibuprofen, naproxen, or other non-steroidal anti-inflammatory drugs for 5 days after biopsy. - Await pathology results. - Repeat colonoscopy in 1 year for surveillance based on pathology results. Procedure Code(s): --- Professional --- 22811, Colonoscopy, flexible; with transendoscopic balloon dilation 87223, Colonoscopy, flexible; with biopsy, single or multiple G0500, Moderate sedation services provided by the same physician or other qualified health prompt care rn performing a gastrointestinal endoscopic service that sedation supports, requiring the presence of an independent trained observer to assist in the monitoring of the patient's level of consciousness and physiological status; initial 15 minutes of intra-service time; patient age 5 years or older (additional time may be reported with 98454, as appropriate) CPT copyright 2017 [employer]. All rights reserved. The codes documented in this report are preliminary and upon ship engines operating engineer review may be revised to meet current compliance requirements. Luis Alberto Baumann DO 01/31/2022 5:07:08 PM This report has been signed electronically. Number of Addenda: 1 Note Initiated On: 01/31/2022 4:38 PM Addendum Number: 1 Addendum Date: 07/12/2022 6:30:22 AM MAC was used as sedation for this procedure. Luis Alberto Baumann DO 07/12/2022 6:30:26 AM This report has been signed electronically.
--- NOTE | 2022-01-31 17:07 | OP.CCLET_ITS ---
07/12/2022 Jaida Vito Re : Colonoscopy procedure for Benson Padron This procedure was performed on Monday, January 31, 2022. My impressions and recommendations are as follows: Impressions : - Severe diverticulosis in the recto-sigmoid colon, in the sigmoid colon, in the descending colon, at the splenic flexure and in the transverse colon. There was evidence of recent bleeding from the diverticular opening. - Non-patent end-to-side ileo-colonic anastomosis, characterized by erosion, erythema, inflammation and ulceration. Biopsied. Dilated. - Inflammatory bowel disease. Biopsied. - Hemorrhoids found on perianal exam. - The examination was otherwise normal on direct and retroflexion views. Recommendations : - [facility]. - Advance diet as tolerated today. - No aspirin, ibuprofen, naproxen, or other non-steroidal anti-inflammatory drugs for 5 days after biopsy. - Await pathology results. - Repeat colonoscopy in 1 year for surveillance based on pathology results. My findings are described in the full procedure note, which is enclosed. If I can be of further assistance, please feel free to contact me at . Sincerely, Luis Alberto Baumann, 01/31/2022 5:07:08 PM This report has been signed electronically.
--- NOTE | 2022-01-31 17:12 | OP.EGD_ITS ---
Patient Name: Benson Sigala Procedure Date: 01/31/2022 3:39 PM Date of : 1950 Age: 71 Procedure: Upper GI endoscopy Indications: Hematochezia Providers: Luis Alberto Baumann DO Referring MD: Robel Hollis Medicines: Sedation Required Anesthesia Staff Assistance Patient Profile: This is a 71 year old male. Refer to note in patient chart for documentation of history and physical. Patient has symptoms. Complications: No immediate complications. Procedure: Pre-Anesthesia Assessment: - Prior to the procedure, a History and Physical was performed, and patient medications and allergies were reviewed. The risks and benefits of the procedure and the sedation options and risks were discussed with the patient. All questions were answered and informed consent was obtained. Patient identification and proposed procedure were verified by the physician in the pre-procedure area. Mental Status Examination: alert and oriented. Airway Examination: normal oropharyngeal airway and neck mobility. Respiratory Examination: clear to auscultation. CV Examination: normal. Prophylactic Antibiotics: The patient does not require prophylactic antibiotics. Prior Anticoagulants: The patient has taken no previous anticoagulant or antiplatelet agents. After reviewing the risks and benefits, the patient was deemed in satisfactory condition to undergo the procedure. The anesthesia plan was to use minimal sedation / analgesia (anxiolysis). Immediately prior to administration of medications, the patient was re-assessed for adequacy to receive sedatives. The heart rate, respiratory rate, oxygen saturations, blood pressure, adequacy of pulmonary ventilation, and response to care were monitored throughout the procedure. The physical status of the patient was re-assessed after the procedure. After obtaining informed consent, the endoscope was passed under direct vision. Throughout the procedure, the patient's blood pressure, pulse, and oxygen saturations were monitored continuously. The pediatric colonoscope was introduced through the mouth, and advanced to the second part of duodenum. The upper GI endoscopy was accomplished without difficulty. The patient tolerated the procedure well. Moderate Sedation: Moderate (conscious) sedation was administered by the endoscopy nurse and supervised by the endoscopist. The patient's oxygen saturation, heart rate, blood pressure and response to care were monitored. Total physician intraservice time was 15 minutes. Scope In: 4:32:09 PM Scope Out: 4:38:05 PM Total Procedure Duration Time 0 hours 5 minutes 56 seconds Findings: A moderate Schatzki ring was found in the lower third of the esophagus. A TTS dilator was passed through the scope. Dilation with a 15-16.5-18 mm balloon dilator was performed to 10 mm. The dilation site was examined and showed moderate improvement in luminal narrowing. Estimated blood loss was minimal. Three non-bleeding cratered gastric ulcers with no stigmata of bleeding were found in the gastric antrum. The largest lesion was 6 mm in largest dimension. Biopsies were taken with a cold forceps for histology. Verification of patient identification for the specimen was done. Estimated blood loss was minimal. Three oozing cratered duodenal ulcers with a visible vessel were found in the duodenal bulb. The largest lesion was 6 mm in largest dimension. Coagulation for hemostasis using heater probe was successful. Estimated blood loss was minimal. Two non-bleeding cratered duodenal ulcers with no stigmata of bleeding were found in the duodenal bulb. The largest lesion was 5 mm in largest dimension. Biopsies were taken with a cold forceps for histology. Verification of patient identification for the specimen was done. Estimated blood loss was minimal. Impression: - Moderate Schatzki ring. Dilated. - Non-bleeding gastric ulcers with no stigmata of bleeding. Biopsied. - Multiple oozing duodenal ulcers with a visible vessel. Treated with a heater probe. - Multiple non-bleeding duodenal ulcers with no stigmata of bleeding. Biopsied. Recommendation: - [facility]. - Advance diet as tolerated. - Use Protonix (pantoprazole) 40 mg PO BID for 8 weeks. - Use sucralfate tablets 1 gram PO QID for 2 weeks. - Continue present medications. Procedure Code(s): --- Professional --- 37635, 59, Esophagogastroduodenoscopy, flexible, transoral; with control of bleeding, any method 42564, Esophagogastroduodenoscopy, flexible, transoral; with transendoscopic balloon dilation of esophagus (less than 30 mm diameter) 73332, 59, Esophagogastroduodenoscopy, flexible, transoral; with biopsy, single or multiple G0500, Moderate sedation services provided by the same physician or other qualified health care center manager performing a gastrointestinal endoscopic service that sedation supports, requiring the presence of an independent trained observer to assist in the monitoring of the patient's level of consciousness and physiological status; initial 15 minutes of intra-service time; patient age 5 years or older (additional time may be reported with 11253, as appropriate) CPT copyright 2017 [employer]. All rights reserved. The codes documented in this report are preliminary and upon cnc supervisor review may be revised to meet current compliance requirements. Luis Alberto Baumann DO 01/31/2022 5:11:18 PM This report has been signed electronically. Number of Addenda: 1 Note Initiated On: 01/31/2022 3:39 PM Addendum Number: 1 Addendum Date: 07/12/2022 6:30:09 AM MAC was used as sedation for this procedure. Luis Alberto Baumann DO 07/12/2022 6:30:14 AM This report has been signed electronically.
--- NOTE | 2022-01-31 17:12 | OP.CCLET_ITS ---
07/12/2022 Jaida Padron Re : Upper GI endoscopy procedure for Benson Padron This procedure was performed on Monday, January 31, 2022. My impressions and recommendations are as follows: Impressions : - Moderate Schatzki ring. Dilated. - Non-bleeding gastric ulcers with no stigmata of bleeding. Biopsied. - Multiple oozing duodenal ulcers with a visible vessel. Treated with a heater probe. - Multiple non-bleeding duodenal ulcers with no stigmata of bleeding. Biopsied. Recommendations : - [facility]. - Advance diet as tolerated. - Use Protonix (pantoprazole) 40 mg PO BID for 8 weeks. - Use sucralfate tablets 1 gram PO QID for 2 weeks. - Continue present medications. My findings are described in the full procedure note, which is enclosed. If I can be of further assistance, please feel free to contact me at . Sincerely, Luis Alberto Baumann, 01/31/2022 5:11:18 PM This report has been signed electronically.
[2022-01-31] MEDS: Ensure Clear 120 ML Liquid PO (17:42)
[2022-01-31] MEDS: NIFEdipine 30 MG Tablet PO (17:42)
[2022-01-31] MEDS: Sucralfate 1 GM Tablet PO (18:43)
[2022-01-31] MEDS: Pantoprazole Sodium 40 MG Tablet PO (21:39)
[2022-02-01] VITALS (11 sets, daily range): BP systolic 97–150; BP diastolic 61–77; PULSE 62–118; RESP 16–20; TEMP 36.2–37.1; O2SAT 92–97
[2022-02-01] MEDS: Atenolol 25 MG Tablet PO ×3 (01:13→20:39)
[2022-02-01] MEDS: 0.9% Normal Saline 1,000 ML 75 ML IV ×2 (01:15→16:53)
[2022-02-01 06:12] LABS: Absolute Lymphocyte Count 0.89 X10^3/uL (0.83-4.51); Basophil# 0.02 X10^3/uL; Basophil% 0.4 % (0-1); Eosinophil# 0.21 X10^3/uL; Eosinophils% 3.8 % (0-5); Hematocrit 26.6 % (40-54); Hemoglobin 8.5 g/dL (13.0-16.5); Lymphocyte # 0.89 X10^3/ul (0.83-4.51); Mean Corpuscular Hgb 29.4 pg (27.0-32.0); Mean Platelet Vol. 9.8 fl (6.2-12.0); Monocyte# 0.42 X10^3/uL; Monocyte% 7.5 % (0-10); NRBC Flagged by Analyzer 0 % (0-5); Neutrophil # 4.02 X10^3/uL (2.7-7.7); Neutrophil % 72.1 % (47-70); Platelet Count 171 K/mm3 (150-450); RBC Distribution Width CV 13.1 % (11.6-14.6); Red Blood Count 2.89 M/mm3 (4.6-6.2); White Blood Count 5.6 K/mm3 (4.4-11.0)
[2022-02-01] MEDS: Sucralfate 1 GM Tablet PO ×3 (06:18→16:51)
[2022-02-01 06:37] LABS: Anion Gap 5 (5-15); BUN 14 mg/dL (7-18); BUN/Creat Ratio 11.1 RATIO (10-20); Calcium,Total 8.1 mg/dL (8.5-10.1); Chloride 112 mmol/L (98-107); Creatinine, Serum 1.26 mg/dL (0.70-1.30); EST Glomerular Filtration Rate 60 mL/min (>60); Est Glom Filt Rate - Afr Amer 72 mL/min (>60); Estimated Creatinine Clearance 54.72 ml/min; Glucose 96 mg/dL (74-106); Potassium 3.8 mmol/L (3.5-5.1); Sodium Level 141 mmol/L (136-145)
[2022-02-01] MEDS: NIFEdipine 30 MG Tablet PO (10:02)
[2022-02-01] MEDS: Ensure Clear 120 ML Liquid PO ×3 (10:02→16:51)
[2022-02-01] MEDS: Pantoprazole Sodium 40 MG Tablet PO ×2 (10:02→20:39)
--- NOTE | 2022-02-01 12:31 | PN.HOSP_ITS ---
Subjective Subjective Follow-up for acute lower GI bleed. No dizziness or lightheadedness. Hematochezia has stopped. Patient tolerated c lear liquid diet and advance to soft diet. Heart rate and blood pressure in normal range. Objective Data Objective Data Vital Signs: Vital Signs Temp Pulse Resp BP Pulse Ox 97.2 F L 70 18 121/64 H 96 02/01/22 09:35 02/01/22 09:35 02/01/22 09:35 02/01/22 09:35 02/01/22 09:35 Oxygen Delivery Method Room Air Weight: 163 lb 9.328 oz Body Mass Index (BMI) 23.2 Intake & Output: Intake and Output for Last 24 Hours 01/30/22 01/31/22 02/01/22 23:59 23:59 23:59 Intake Total 2495 / 2495 2750.17 / 3110.17 2183.75 / 2183.75 Balance 2495 / 2495 2750.17 / 3110.17 2183.75 / 2183.75 Lab / Micro Data Result Diagrams: 02/01/22 05:15 02/01/22 05:15 Labs: Laboratory Results - last 24 hr 02/01/22 05:15: WBC 5.6, RBC 2.89 L, Hgb 8.5 L, Hct 26.6 L, MCV 92.0, MCH 29.4, MCHC 32.0 D, RDW Std Deviation 44.0 H, RDW Coeff of Navneet 13.1, Plt Count 171, MPV 9.8, Immature Gran % (Auto) 0.200, Neut % (Auto) 72.1 H, Lymph % (Auto) 16.0 L, [place] % (Auto) 7.5, Eos % (Auto) 3.8, Baso % (Auto) 0.4, Absolute Neuts (auto) 4.0, Absolute Lymphs (auto) 0.89, Nucleated RBC % 0 02/01/22 05:15: Sodium 141, Potassium 3.8, Chloride 112 H, Carbon Dioxide 24.0, Anion Gap 5, BUN 14, Creatinine 1.26, Estim Creat Clear Calc 54.72, Est GFR ( MDRD) Af Amer 72, Est GFR (MDRD) Non-Af 60, BUN/Creatinine Ratio 11.1, Glucose 96, Calcium 8.1 L Micro: Microbiology 01/30/22 17:50 Nasal Secretion SARS-CoV-2 Antigen (Rapid) - Final Physical Exam Narrative General: Alert, Oriented x3, Cooperative HEENT: Atraumatic, PERRLA, EOMI, Normocephalic Oral: Oral mucosa dry. No Gingival or Mucosal Lesions/ Ulcerations Neck: Supple, No JVD, Negative Carotid Bruits Lungs: Air entry diminished in bilateral lung bases. No crepitation/rhonchi Cardiovascular: CABG scar. Sinus rhythm on monitor. Rhythm, Normal S1, Normal S2, No murmurs Abdomen: Bowel Sounds Present, Soft, Non Tender, Non-Distended. Transverse surgical scar. Per rectal exam: Clear liquid stool. : No renal angle tenderness. No suprapubic tenderness. Extremities: Missing fingers and toes. Admission HPI no edema, Capillary Refill Less than 3 Seconds Skin: No rashes, No breakdown Musculoskeletal: No Tenderness to Palpation of Joints or Extremities Neurological: Cranial nerves II-XII grossly intact, DTR 2+/4 and Symmetrical, Neuro grossly intact Psych/Mental Status: Normal Affect, Appropriate Assessment & Plan Assessment/Plan (1) GI bleed: QUALIFIERS: GI bleed type/associated pathology: unspecified gastrointestinal hemorrhage type Qualified Code(s): K92.2 - Gastrointestinal hemorrhage, unspecified PLAN: 1. Acute sudden onset GI bleed most probably upper GI bleed: Patient is being admitted as direct transfer from [facility] in PCU. Labs reviewed from [facility], hemoglobin 14.2/hematocrit 42.1%. Platelet count 1 97,000. WBC 5.5 thousand. Stat CBC with differential, BMP, PT/INR type and crossmatch ordered. Started on Protonix 80 mg IV bolus and then drip. Discussed with the district court reporter Dr. Baumann. IV fluid for resuscitation. Most recent blood pressure 140/87, heart rate 80/min. No hypoxia or tachypnea. 01/31: Acute blood loss anemia secondary to GI bleed most likely upper GI bleed with rapid transit/PUD, or lower AVM/ischemic colitis/anastomotic bleeding. EGD and colonoscopy scheduled. Hemoglobin dropped to 8.8 g%. 250 mg IV iron ordered 02/01: Hemoglobin drop from 11.5 to 8.5 g%. Heart rate and blood pressure in normal range. Patient had EGD and colonoscopy and explained to the patient with a diagram. EGD shows moderate scattered scaring dilated, nonbleeding gastric ulcers, biopsy multiple oozing duodenal ulcer with visible vessel, treated with heater probe. Multiple nonbleeding duodenal ulcer. On Protonix 40 mg twice daily for 8 weeks and sucralfate 1 g p.o. 4 times daily for 2 weeks. Colonoscopy reported severe diffuse diverticulosis in the rectosigmoid colon, sigmoid, descending at the splenic flexure and transverse colon. Evidence of recent bleeding from diverticular opening. End-to-side ileocolonic anastomosis characterized by erosion and erythema inflammation and ulceration. It was dilated. Inflammatory bowel disease biopsied. Hemorrhoids found. No aspirin/ibuprofen or NSAIDs for 5 days. Advised to follow-up GI in 2 weeks. Repeat colonoscopy in 1 year. Discussed with the GI DrNo Baumann and advised to keep 1 more day because of severity of bleeding, anemia and extensive EGD and colonoscopy findings for monitoring. 2. Exertional chest pain most probably angina quality. Twelve-lead EKG from [facility] independently reviewed. Normal sinus rhythm 60/min. QTc interval [address]-T changes suggestive of ischemia. Patient had EKG in PCU on arrival. Normal sinus rhythm at 62 bpm. QTc 458 ms. 01/31: Fasting profile LDL 56, HDL 29. TSH 1.1. Serial hs- troponin normal. 2D echo reviewed, EF 65%, mild concentric LVH. RVSP 22 mmHg 3. Electrolyte abnormality, CKD stage IIIa or possible BRYSON on CKD stage III: Patient BUN/creatinine elevated 27/1.51. No previous BUN/creatinine to compare. Potassium 5.4, bicarb 22, anion gap 11. Mild hyperkalemia with normal anion gap metabolic acidosis. CMP is ordered. 01/31: Phosphorus 2.4, magnesium 2.2. IV potassium replacement 4. Paroxysmal A. fib: Home medication list states patient is on baby and Xarelto but is not taking Xarelto. Currently in normal sinus rhythm. 5. 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 He follows outside [facility] [facility] Dr. Jaida Padron in [facility]. Does not have any previous echo report. Patient did not have any leg swelling or features suggestive of acute CHF 6. Other comorbidities include hypertension, dyslipidemia, obstructive sleep apnea history of bowel obstructions. Resection in the past. Multiple comorbidities complicates the present care and expect difficult and delay recovery Total time of the visit including total time spent in counseling or coordination of care, (more than 50% of the total time, spent in obtaining medical information from nurses and other ancillary care providers,explaining to the patient about labs, imaging, diagnosis and management), discussion with consu ltant, review of labs and imaging is 40 minutes. Living will/advanced directive/end of life care: Patient does not have living will or advanced directive. After discussion of benefits/risks procedures involved with full code, DNR CC arrest and DNR CC, the patient opted for full code. Patient does want artificial life support including intubation, tube feed, ventilator and/chest compression, central venous catheter, vasopressor and DC shock if needed Charges/Coding Visit Charges Inpatient E&M: 66615 Subs Hosp L2
[2022-02-01 13:11] LABS: Magnesium 2.2 mg/dL (1.6-2.6); Phosphorus 2.9 mg/dL (2.5-4.9)
--- NOTE | 2022-02-01 14:01 | EKG12_ITS ---
Test Reason : CP Blood Pressure : / mmHG Vent. Rate : 125 BPM Atrial Rate : 326 BPM P-R Int : 000 ms QRS Dur : 086 ms QT Int : 336 ms P-R-T Axes : 000 -01 121 degrees QTc Int : 484 ms Atrial fibrillation Nonspecific ST and T wave abnormality Abnormal ECG Confirmed by JIMMY MILAN, NAZIA ([id number]), staff editor GRACIE BLEDSOE ([id number]) on 02/05/2022 11:40:35 AM Referred By: Robel Hollis Confirmed By:NAZIA MARQUEZ MD
[2022-02-01] MEDS: dilTIAZem 25 MG/5 ML Vial 10 MG IV BOLUS (14:47)
--- NOTE | 2022-02-01 18:42 | NURSING ---
Reviewed charting with Nacho Pedroza RN
[2022-02-02 02:30] VITALS: BP 142/78; PULSE 64; RESP 18; TEMP 36.8; O2SAT 97
[2022-02-02 03:00] VITALS: PULSE 63
[2022-02-02 05:45] LABS: Absolute Lymphocyte Count 0.91 X10^3/uL (0.83-4.51); Absolute Neutrophil Count 3.4 X10^3/uL (2.0-7.7); Basophil# 0.02 X10^3/uL; Basophil% 0.4 % (0-1); Eosinophil# 0.25 X10^3/uL; Eosinophils% 4.9 % (0-5); Hematocrit 25.8 % (40-54); Hemoglobin 8.6 g/dL (13.0-16.5); Lymphocyte # 0.91 X10^3/ul (0.83-4.51); Lymphocyte % 17.9 % (19-41); Mean Corp Hgb Conc 33.3 g/dL (32-36); Mean Corpuscular Hgb 30.4 pg (27.0-32.0); Mean Corpuscular Volume 91.2 fL (80-94); Mean Platelet Vol. 9.8 fl (6.2-12.0); Monocyte# 0.53 X10^3/uL; Monocyte% 10.5 % (0-10); NRBC Flagged by Analyzer 0.4 % (0-5); Neutrophil # 3.35 X10^3/uL (2.7-7.7); Neutrophil % 66.1 % (47-70); Platelet Count 176 K/mm3 (150-450); RBC Distribution Width CV 13.4 % (11.6-14.6); RBC Distribution Width SD 44.3 fl (35.1-43.9); Red Blood Count 2.83 M/mm3 (4.6-6.2); White Blood Count 5.1 K/mm3 (4.4-11.0)
[2022-02-02] MEDS: 0.9% Normal Saline 1,000 ML 75 ML IV (06:09)
[2022-02-02] MEDS: Sucralfate 1 GM Tablet PO ×2 (06:09→11:03)
[2022-02-02 06:51] VITALS: PULSE 55
[2022-02-02 07:30] VITALS: O2SAT 97
[2022-02-02 08:19] VITALS: BP 122/68; PULSE 69; RESP 14; TEMP 36.9; O2SAT 96
--- NOTE | 2022-02-02 08:23 | PCM.DC ---
Discharge Instructions Diet Discharge Diet: Low fat / Low cholesterol and 2000 mg Sodium Diet Activity Discharge Activity: Return to Normal Activity Dressing / Incision Call your doctor if you observe: Fever of 101 or Higher, Coldness, Increased Pain, Numbness or Tingling, Change in Color, Inability to urinate, Inability to have a bowel movement, Shortness of breath, Dizziness, Fainting spells, Swelling in the ankles, Chest pain, Prolonged hiccupping, Increased palpitations (irregular heartbeat), Calf discomfort and Uncontrolled pain Follow Up Care Test Results: Test results from this visit will be discussed in further detail at your follow-up appointment, if applicable. Discharge Plan Admission Admit Date/Time: 01/30/22 10:48 Attending Provider: Robel Hollis Primary Care Provider: Jaida Padron NP Instructions Additional Instructions / Restrictions: Advised sucralfate 1 g 3 times daily AC, 1 hour before meal, 3 times daily, total tablets 42. Retail pharmacist called to correct the prescription Discharge Orders/Prescriptions Prescriptions: New sucralfate 1 gram Tablet 1 g PO 0700,1100,1600 Qty: 28 RF: 0 pantoprazole 40 mg Tablet,Delayed Release (Dr/Ec) 40 mg PO BID Qty: 60 RF: 2 nitroglycerin 0.4 mg Tablet, Sublingual 0.4 mg sublingual Q5M PRN (Reason: Cardiac/Chest Pain) Qty: 30 RF: 0 ferrous sulfate [FeroSul] 325 mg (65 mg iron) tablet 325 mg PO QODAY Qty: 30 RF: 2 ascorbic acid (vitamin C) 500 mg tablet 500 mg PO BID Qty: 60 RF: 0 Continued nifedipine 30 mg tablet extended release 24hr 30 mg PO DAILY RF: 0 atenolol 25 mg tablet 25 mg PO BID RF: 0 lisinopril 10 mg tablet 10 mg PO DAILY RF: 0 aspirin 81 mg Tablet 81 mg PO DAILY RF: 0 Referrals / Follow Up: Luis Alberto Baumann DO [STAFF PHYSICIAN] - Within 2 Weeks (Follow-up for EGD and colonoscopy with biopsy) Jaida Padron NP, [facility] [Primary Care Provider] - Within 1 Week (For upper GI bleed and chest pain) Disposition Disposition (needs filled in before D/C Order can be placed): Home, Self Care
[2022-02-02] MEDS: Ensure Clear 120 ML Liquid PO (08:24)
[2022-02-02] MEDS: NIFEdipine 30 MG Tablet PO (08:25)
[2022-02-02] MEDS: Pantoprazole Sodium 40 MG Tablet PO (08:25)
[2022-02-02] MEDS: Atenolol 25 MG Tablet PO (08:25)
[2022-02-02] MEDS: Lisinopril 10 MG Tablet PO (08:34)
--- NOTE | 2022-02-02 09:58 | DS.PCM_ITS ---
Providers Date of Admission: 01/30/22 Date of Discharge: 02/02/22 Primary Care Physician: AMY Phillips Consultations 01/30/22 11:13 Consult: Gastroenterology Routine Consulting Provider: [facility] Reason for Consult: Massive GI Bleed, upper? EMERGENT Consult: No MD Notified: Yes Date Notified: 01/30/22 Time Notified: 10:55 Method of Notification: Verbal Reason For Visit: GI BLEEDING/CHEST PAIN Diagnosis Discharge Diagnosis (1) GI bleed: Status: Acute Code(s): K92.2 - Gastrointestinal hemorrhage, unspecified Qualifiers: GI bleed type/associated pathology: unspecified gastrointestinal hemorrhage type Qualified Code(s): K92.2 - Gastrointestinal hemorrhage, unspecified Medications at Discharge Home Medications aspirin 81 mg PO DAILY 01/30/22 atenolol 25 mg PO BID 01/30/22 lisinopril 10 mg PO DAILY 01/30/22 nifedipine 30 mg PO DAILY 01/30/22 ascorbic acid (vitamin C) 500 mg PO BID #60 tab 02/02/22 ferrous sulfate [FeroSul] 325 mg PO QODAY #30 tab 02/02/22 nitroglycerin 0.4 mg SUBLINGUAL Q5M PRN #30 tab 02/02/22 pantoprazole 40 mg PO BID #60 tab 02/02/22 sucralfate 1 g PO 0700,1100,1600 #28 tab 02/02/22 Hospital Course Summary of Care Provided Hospital Course: This 72-year-old question gentleman with 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 Patient had total of 5 times large amount rectal bleed it was pouring from rectum during my first exam. Please see H&P for detail. 1. Acute sudden onset GI bleed most probably upper GI bleed: Patient is being admitted as direct transfer from [facility] in PCU. Labs reviewed from [facility], hemoglobin 14.2/hematocrit 42.1%. Platelet count 1 97,000. WBC 5.5 thousand. Stat CBC with differential, BMP, PT/INR type and crossmatch ordered. Started on Protonix 80 mg IV bolus and then drip. Discussed with the dry wall installer Dr. Baumann. IV fluid for resuscitation. Most recent blood pressure 140/87, heart rate 80/min. No hypoxia or tachypnea. 01/31: Acute blood loss anemia secondary to GI bleed most likely upper GI bleed with rapid transit/PUD, or lower AVM/ischemic colitis/anastomotic bleeding. EGD and colonoscopy scheduled. Hemoglobin dropped to 8.8 g%. 250 mg IV iron ordered 02/01: Hemoglobin drop from 11.5 to 8.5 g%. Heart rate and blood pressure in normal range. Patient had EGD and colonoscopy and explained to the patient with a diagram. EGD shows moderate scattered scaring dilated, nonbleeding gastric ulcers, biopsy multiple oozing duodenal ulcer with visible vessel, treated with heater probe. Multiple nonbleeding duodenal ulcer. On Protonix 40 mg twice daily for 8 weeks and sucralfate 1 g p.o. 4 times daily for 2 weeks. Colonoscopy reported severe diffuse diverticulosis in the rectosigmoid colon, sigmoid, descending at the splenic flexure and transverse colon. Evidence of recent bleeding from diverticular opening. End-to-side ileocolonic anastomosis characterized by erosion and erythema inflammation and ulceration. It was dilated. Inflammatory bowel disease biopsied. Hemorrhoids found. No aspirin/ibuprofen or NSAIDs for 5 days. Advised to follow-up GI in 2 weeks. Repeat colonoscopy in 1 year. Discussed with the GI DrNo Baumann and advised to keep 1 more day because of severity of bleeding, anemia and extensive EGD and colonoscopy findings for monitoring. 02/02: Discharge medications were explained to the patient. Prescription given for Protonix and Carafate. Patient is not taking Xarelto as advised by his automatic hemmer. Baby aspirin resumed. 2. Exertional chest pain most probably angina quality. Twelve-lead EKG from [facility] independently reviewed. Normal sinus rhythm 60/min. QTc interval [address]-T changes suggestive of ischemia. Patient had EKG in PCU on arrival. Normal sinus rhythm at 62 bpm. QTc 458 ms. 01/31: Fasting profile LDL 56, HDL 29. TSH 1.1. Serial hs- troponin normal. 2D echo reviewed, EF 65%, mild concentric LVH. RVSP 22 mmHg 3. Electrolyte abnormality, CKD stage IIIa or possible BRYSON on CKD stage III: Patient BUN/creatinine elevated 27/1.51. No previous BUN/creatinine to compare. Potassium 5.4, bicarb 22, anion gap 11. Mild hyperkalemia with normal anion gap metabolic acidosis. CMP is ordered. 01/31: Phosphorus 2.4, magnesium 2.2. IV potassium replacement 02/02: Electrolytes were corrected. Repeat phosphorus 2.9. Magnesium 2.2. Potassium 3.8. 4. Paroxysmal A. fib: Home medication list states patient is on baby and Xarelto but is not taking Xarelto. Currently in normal sinus rhythm. 02/02: Patient had A. fib with RVR on 02/01, heart rate 120s. Cardizem 10 mg IV bolus was given and patient converted to sinus rhythm after few hours. Currently sinus rhythm with few PVCs. Chest pain resolved. 5. 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 He follows outside automatic hemmer Dr. Jaida Padron in [facility]. Does not have any previous echo report. Patient did not have any leg swelling or features suggestive of acute CHF 6. Other comorbidities include hypertension, dyslipidemia, obstructive sleep apnea history of bowel obstructions. Resection in the past. Multiple comorbidities complicates the present care and expect difficult and delay recovery Discharge medication reconciliation done. Discharge follow-up instructions completed. Discharge process discussed with the patient and all questions were answered to patient's satisfaction. Prescription sent to retail pharmacy. Discharged home Total time spent, exact 35 minutes on discharge meds reconciliation, examination, coordination of care with nurses and ancillary staff, review of imaging and blood test and discussion with the patient on follow-up instructions. Living will/advanced directive/end of life care: Patient does not have living will or advanced directive. After discussion of benefits/risks procedures involved with full code, DNR CC arrest and DNR CC, the patient opted for full code. Patient does want artificial life support including intubation, tube feed, ventilator and/chest compression, central venous catheter, vasopressor and DC shock if needed Physical Exam Narrative The patient had A. fib with RVR on 02/01 afternoon. Was given Cardizem 10 mg IV bolus. After some time patient converted to normal sinus rhythm. Currently normal sinus rhythm with PVCs on monitor General: Alert, Oriented x3, Cooperative HEENT: Atraumatic, PERRLA, EOMI, Normocephalic Oral: Oral mucosa dry. No Gingival or Mucosal Lesions/ Ulcerations Neck: Supple, No JVD, Negative Carotid Bruits Lungs: Air entry diminished in bilateral lung bases. No crepitation/rhonchi Cardiovascular: CABG scar. Normal sinus rhythm, Normal S1, Normal S2, No murmurs Abdomen: Bowel Sounds Present, Soft, Non Tender, Non-Distended. Transverse surgical scar. No further rectal bleeding : No renal angle tenderness. No suprapubic tenderness. Extremities: Missing fingers and toes. Capillary Refill Less than 3 Seconds Skin: No rashes, No breakdown Musculoskeletal: No Tenderness to Palpation of Joints or Extremities Neurological: Cranial nerves II-XII grossly intact, DTR 2+/4 and Symmetrical, Neuro grossly intact Psych/Mental Status: Normal Affect, Appropriate Weight / BMI Weight Weight: 164 lb 0.383 oz Body Mass Index (BMI) 23.2 ABG / Lab / Microbiology Data Result Diagrams: 02/02/22 04:47 02/01/22 05:15 Laboratory: Laboratory Results - last 24 hr 02/01/22 05:15: Phosphorus 2.9, Magnesium 2.2 02/02/22 04:47: WBC 5.1, RBC 2.83 L, Hgb 8.6 L, Hct 25.8 L, MCV 91.2, MCH 30.4, MCHC 33.3, RDW Std Deviation 44.3 H, RDW Coeff of Navneet 13.4, Plt Count 176, MPV 9.8, Immature Gran % (Auto) 0.200, Neut % (Auto) 66.1, Lymph % (Auto) 17.9 L, [place] % (Auto) 10.5 H, Eos % (Auto) 4.9, Baso % (Auto) 0.4, Absolute Neuts (auto) 3.4, Absolute Lymphs (auto) 0.91, Nucleated RBC % 0.4 Microbiology: Microbiology 01/30/22 17:50 Nasal Secretion SARS-CoV-2 Antigen (Rapid) - Final D/C Instructions Discharge Diet: Low fat / Low cholesterol and 2000 mg Sodium Diet Call your doctor if you observe: Fever of 101 or Higher, Coldness, Increased Pain, Numbness or Tingling, Change in Color, Inability to urinate, Inability to have a bowel movement, Shortness of breath, Dizziness, Fainting spells, Swelling in the ankles, Chest pain, Prolonged hiccupping, Increased palpitations (irregular heartbeat), Calf discomfort and Uncontrolled pain Meaningful Use Info Meaningful Use Diagnoses (Choose all that apply): None applicable Discharge Plan Admission Admit Date/Time: 01/30/22 10:48 Attending Provider: Robel Hollis Primary Care Provider: Jaida Padron NP Instructions Additional Instructions / Restrictions: Advised sucralfate 1 g 3 times daily AC, 1 hour before meal, 3 times daily, total tablets 42. Retail pharmacist called to correct the prescription Discharge Orders/Prescriptions Prescriptions: New sucralfate 1 gram Tablet 1 g PO 0700,1100,1600 Qty: 28 RF: 0 pantoprazole 40 mg Tablet,Delayed Release (Dr/Ec) 40 mg PO BID Qty: 60 RF: 2 nitroglycerin 0.4 mg Tablet, Sublingual 0.4 mg sublingual Q5M PRN (Reason: Cardiac/Chest Pain) Qty: 30 RF: 0 ferrous sulfate [FeroSul] 325 mg (65 mg iron) tablet 325 mg PO QODAY Qty: 30 RF: 2 ascorbic acid (vitamin C) 500 mg tablet 500 mg PO BID Qty: 60 RF: 0 Continued nifedipine 30 mg tablet extended release 24hr 30 mg PO DAILY RF: 0 atenolol 25 mg tablet 25 mg PO BID RF: 0 lisinopril 10 mg tablet 10 mg PO DAILY RF: 0 aspirin 81 mg Tablet 81 mg PO DAILY RF: 0 Referrals / Follow Up: Luis Alberto Baumann DO [STAFF PHYSICIAN] - Within 2 Weeks (Follow-up for EGD and colonoscopy with biopsy) Jaida Padron NP, TUNNELING MACHINE OPERATOR-C [Primary Care Provider] - Within 1 Week (For upper GI bleed and chest pain) Disposition Disposition (needs filled in before D/C Order can be placed): Home, Self Care Charges/Coding Visit Charges Inpatient E&M: 74363 Disch Hosp
--- NOTE | 2022-02-02 11:17 | PHA.DC.MC ---
Pharmacy Service has performed discharge medication reconciliation and counseling for this patient. 1. ASCORBIC ACID 500MG PO BIDCM 2. FERROUS SULFATE 325MG PO QODAY 3. NITROGLYCERIN 0.4MG SL Q5M PRN CHEST PAIN 4. PANTOPRAZOLE 40MG PO BID X 8 WEEKS, THEN ONCE DAILY 5. SUCRALFATE 1GM PO 1HR BEFORE MEALS TID The patient's discharge medication list was reviewed for discrepancies and discrepancies were resolved. Home Medications aspirin 81 mg PO DAILY 01/30/22 atenolol 25 mg PO BID 01/30/22 lisinopril 10 mg PO DAILY 01/30/22 nifedipine 30 mg PO DAILY 01/30/22 ascorbic acid (vitamin C) 500 mg PO BID #60 tab 02/02/22 ferrous sulfate [FeroSul] 325 mg PO QODAY #30 tab 02/02/22 nitroglycerin 0.4 mg SUBLINGUAL Q5M PRN #30 tab 02/02/22 pantoprazole 40 mg PO BID #60 tab 02/02/22 sucralfate 1 g PO 0700,1100,1600 #28 tab 02/02/22 The patient was counseled on the following discharge medications and changes in medications for homegoing were reviewed. The Reason for Use, instructions for use, and potential side effects were reviewed for all new medications. The patient's questions regarding all of their medications were answered. The patient was able to verbally demonstrate an understanding of their discharge medications.
== END 2022-02-02 13:30 | disposition home or self-care (01) | DRG 378 ==
PROVIDERS: Internal Medicine Gastroenterology; Admitting Provider Internal Medicine; PCP Nurse Practitioner Family; Referring Provider Internal Medicine; Visit Provider Internal Medicine
PROC: 0DJD8ZZ Inspection of Lower Intestinal Tract, Via Natural or Artificial Opening Endoscopic (ICD-10-PCS; CPT 45378; principal; 2022-01-31 12:55)
DX: K26.4 Chronic or unspecified duodenal ulcer with hemorrhage (principal); N17.9 Acute kidney failure, unspecified; E87.2 Acidosis; D62 Acute posthemorrhagic anemia; K22.2 Esophageal obstruction; K57.31 Diverticulosis of large intestine without perforation or abscess with bleeding; I48.0 Paroxysmal atrial fibrillation; I25.119 Atherosclerotic heart disease of native coronary artery with unspecified angina pectoris; N18.31 Chronic kidney disease, stage 3a; E78.5 Hyperlipidemia, unspecified; I12.9 Hypertensive chronic kidney disease with stage 1 through stage 4 chronic kidney disease, or unspecified chronic kidney disease; I25.10 Atherosclerotic heart disease of native coronary artery without angina pectoris; E87.5 Hyperkalemia; K52.9 Noninfective gastroenteritis and colitis, unspecified; K64.9 Unspecified hemorrhoids; G47.33 Obstructive sleep apnea (adult) (pediatric); I25.2 Old myocardial infarction; K25.9 Gastric ulcer, unspecified as acute or chronic, without hemorrhage or perforation; K28.7 Chronic gastrojejunal ulcer without hemorrhage or perforation; I49.3 Ventricular premature depolarization; R07.89 Other chest pain; Z95.1 Presence of aortocoronary bypass graft; Z98.0 Intestinal bypass and anastomosis status; Z79.82 Long term (current) use of aspirin; Z79.899 Other long term (current) drug therapy; Z28.310 Unvaccinated for COVID-19; Z28.9 Immunization not carried out for unspecified reason
CPT/HCPCS: 36415; 80048; 80053; 80061; 83735; 84100; 84443; 84484; 85014; 85018; 85025; 85610; 86850; 86900; 86901; 86920; 86922; 87426; 88305; 88342; 93005; 93306; 97802; J7030; J7050; A4216; J2916; J3490

== ENCOUNTER 2022-02-10 18:57 | Observation (INO) | payer MEDICARE, SELFPAY ==
[2022-02-10 19:02] VITALS: BP 186/89; PULSE 69; RESP 17; TEMP 37.3; O2SAT 100; BMI 25.1
--- NOTE | 2022-02-10 19:49 | CT_ITS ---
EXAM: CT ABDOMEN AND PELVIS WITH INTRAVENOUS CONTRAST CLINICAL INDICATION: abdominal pain TECHNIQUE: Helically acquired images were obtained of the abdomen and pelvis with intravenous contrast. This CT exam was performed using one or more of the following dose reduction techniques: automated exposure control, adjustment of the mA and/or kV according to patient size, and/or use of iterative reconstruction technique. This report was created using [employer] report generation technology. CONTRAST: IV 100mL Isovue-300 COMPARISON: None. FINDINGS: LOWER THORAX: Unremarkable. Lung bases are clear. No cardiomegaly. No significant pericardial effusion. ABDOMEN: LIVER: Unremarkable. Homogeneous. No focal mass. GALLBLADDER AND BILE DUCTS: There are small gallstones present. There is no inflammation. No gallbladder distention or wall edema. No intra- or extrahepatic biliary ductal dilation. PANCREAS: Unremarkable. No focal cystic or solid mass. SPLEEN: There is a large calcified lesion in the spleen that measures 2.4 x 2.3 x 2.1 cm and may represent a calcified splenic cyst. ADRENALS: Unremarkable. No nodules. KIDNEYS AND URETERS: Unremarkable. Normal renal size and position. No hydronephrosis. STOMACH AND BOWEL: There are mildly dilated fluid-filled loops of small bowel in the upper abdomen normal caliber bowel distally. Developing bowel obstruction. There is no obvious transition point although there are some very minimal inflammation in the mesentery surrounding loops of small bowel in the right lower abdomen. There is no free air. No focal inflammatory change. PELVIS: APPENDIX: No evidence of acute appendicitis. BLADDER: Unremarkable. REPRODUCTIVE: Unremarkable as visualized. No mass. ABDOMEN and PELVIS: INTRAPERITONEAL SPACE: See above. BONES/JOINTS: Unremarkable. No suspicious lytic or blastic abnormality. SOFT TISSUES: Unremarkable. No discrete abdominal or pelvic wall hernia. VASCULATURE: Unremarkable. Abdominal aorta is non-dilated. LYMPH NODES: Unremarkable. No enlarged lymph nodes. CT/Abdomen/Pelvis without Cont IMPRESSION: Mildly dilated gas and fluid-filled loops of small bowel in the upper abdomen with normal caliber bowel distally represent a developing bowel obstruction. There is no obvious transition point or free air. There is some mild inflammation in the mesentery of the right lower quadrant surrounding loops of bowel. There is no abscess. No other acute abnormalities are identified. Electronically Signed: Nikita Ledesma MD at 21:00 EDT ,
--- NOTE | 2022-02-10 19:56 | EDS_ITS ---
HPI History of Present Illness Chief Complaint: Abd Pain Informant: patient Narrative Narrative: 72-year-old male presenting to the emergency department with the chief complaint of abdominal pain. Patient states that symptoms began this morning in his epigastrium and is described as sharp. Symptoms began after he ate oatmeal. He reports that he was in the hospital couple weeks ago had an EGD and colonoscopy for diverticular bleeding. He was found to have some gastric ulcers. He states is that the pain is localized in a very focal spot just above his umbilicus. He notes it does not radiate. He tried Pepto-Bismol with no relief. Denies any black or bloody stools. He states he had a partial colectomy many years ago but is unsure of exactly why. He denies history of small bowel obstruction. [facility] Medical History Atrial fibrillation Chest pain Hypertension Kidney disease Myocardial infarct Home Medications aspirin 81 mg PO DAILY 01/30/22 [History Last Taken 01/29/22] atenolol 25 mg PO BID 01/30/22 [History Last Taken 01/29/22] lisinopril 10 mg PO DAILY 01/30/22 [History Last Taken 01/29/22] nifedipine 30 mg PO DAILY 01/30/22 [History Last Taken 01/29/22] ascorbic acid (vitamin C) 500 mg PO BID #60 tab 02/02/22 [Rx Last Taken Unknown] ferrous sulfate [FeroSul] 325 mg PO QODAY #30 tab 02/02/22 [Rx Last Taken Unknown] nitroglycerin 0.4 mg SUBLINGUAL Q5M PRN #30 tab 02/02/22 [Rx Last Taken Unknown] pantoprazole 40 mg PO BID #60 tab 02/02/22 [Rx Last Taken Unknown] sucralfate 1 g PO 0700,1100,1600 #28 tab 02/02/22 [Rx Last Taken Unknown] Allergy/AdvReac Type Severity Reaction Status Date / Time prochlorperazine Allergy Anaphylaxis Verified 02/10/22 18:58 [From Compazine] Family History (Updated 01/30/22 @ 11:04 by [facility] Barnes) Other CVA (cerebral vascular accident) Myocardial infarction Surgical History History of bowel resection Hx of CABG Social History household members: none housing: house pets and animals: Yes pets and animals: cat(s) Smoking Status: Never smoker substance use type: does not use ROS ROS ED Constitutional Constitutional ED: Denies chills, fever(s) or weight loss Eyes Eyes: Denies change in vision or diplopia ENT ENT ED: Denies ear pain, rhinorrhea or sore throat Cardiovascular Cardiovascular: Denies chest pain, orthopnea, palpitations or racing heartbeat Respiratory/Chest Respiratory/Chest: Denies cough, dyspnea or orthopnea Gastrointestinal Gastrointestinal: Reports abdominal pain and nausea; Denies constipation, diarrhea or vomiting Genitourinary Genitourinary ED: Denies dysuria, hematuria or urinary frequency Musculoskeletal Musculoskeletal: Denies arthralgias or myalgias Integumentary Denies abscess or rash Neurologic Neurologic: Denies headache(s) or weakness Psychiatric Psychiatric: Denies anxiety, depression, suicidal ideation or suicidal thoughts Endocrine Endocrinology: Denies polydipsia, polyphagia or polyuria Allergic/Immunologic Allergic/Immunologic ED: Denies mouth swelling, tongue swelling or urticaria EXAM Physical Exam Const Vital Signs: 02/10/22 19:02 Temperature 99.1 F Temperature Source Oral Pulse Rate 69 Respiratory Rate 17 Blood Pressure 186/89 H Blood Pressure Mean 121 Pulse Ox 100 Oxygen Delivery Method Room Air Positive well nourished and well developed General Appearance ED: well developed HEENT Reports normocephalic, head/scalp atraumatic, TM's clear and moist mucous membranes Negative for trauma Tympanic Membrane ED: Yes TM's clear Eyes PERRL and EOMs intact bilaterally Neck no lymphadenopathy, supple and no JVD Resp normal respiratory effort and clear to auscultation bilaterally Cardio regular rate, regular rhythm and no murmurs GI Palpation: soft and tender epigastric Back/Spine no CVA tenderness and normal ROM Extremity normal to inspection General Extremety ED: Negative for edema General Extremity: Negative for edema Neuro oriented x3 and CN's II-XII intact bilaterally Sensorium / Orientation: alert Motor Exam: strength 5/5 throughout Psych mental status grossly normal Mood & Affect: Negative for depressed or tearful Skin no rashes or lesions noted and no wounds MDM MDM MDM Narrative Medical decision making narrative: White count at 7.6. CMP shows a creatinine of 1.91 which is elevated off baseline. Lipase is 395. CT the abdomen pelvis demonstrates mildly dilated air-fluid levels in the proximal small bowel with normal caliber distally suggestive of a developing bowel obstruction. Case was discussed with surgeon who has come to the ED to see the patient. Patient does not wish an NG tube at this time. Lab Data Attestation: I reviewed the patient's lab results. Labs: Laboratory Results - last 24 hr 02/10/22 02/10/22 19:23 19:23 WBC 7.6 RBC 3.45 L Hgb 10.4 L Hct 32.4 L MCV 93.9 MCH 30.1 MCHC 32.1 RDW Std Deviation 51.2 H RDW Coeff of Navneet 15.1 H Plt Count 259 MPV 9.2 Immature Gran % (Auto) 0.500 Neut % (Auto) 83.0 H Lymph % (Auto) 7.9 L [place] % (Auto) 6.9 Eos % (Auto) 1.3 Baso % (Auto) 0.4 Absolute Neuts (auto) 6.3 Absolute Lymphs (auto) 0.60 L Nucleated RBC % 0 Differential Comment SCANNED Sodium 139 Potassium 4.4 Chloride 110 H Carbon Dioxide 23.0 Anion Gap 6 BUN 27 H Creatinine 1.91 H Estim Creat Clear Calc 35.57 Est GFR (MDRD) Af Amer 45 L Est GFR (MDRD) Non-Af 37 L BUN/Creatinine Ratio 14.1 Glucose 110 H Calcium 9.1 Total Bilirubin 0.30 AST 36 ALT 20 Alkaline Phosphatase 87 Total Protein 6.8 Albumin 3.3 Globulin 3.5 Albumin/Globulin Ratio 0.9 Lipase 395 H Radiography Diagnostic Testing: Clinical Impression(s) from Imaging Studies Abdomen/Pelvis CT 02/10/22 19:49 IMPRESSION: Mildly dilated gas and fluid-filled loops of small bowel in the upper abdomen with normal caliber bowel distally represent a developing bowel obstruction. There is no obvious transition point or free air. There is some mild inflammation in the mesentery of the right lower quadrant surrounding loops of bowel. There is no abscess. No other acute abnormalities are identified. Electronically Signed: Nikita Ledesma MD at 21:00 EDT , Discharge Plan Dx/Rx/DC Orders Clinical Impression: Small bowel obstruction, Abdominal pain, Vomiting Disposition Disposition: Acute Care Hospital [facility]
[2022-02-10] MEDS: Ondansetron 4 MG/2 ML Vial IV (19:57)
[2022-02-10] MEDS: Morphine 4 MG/ML Syringe IV (19:57)
[2022-02-10 19:58] LABS: Absolute Neutrophil Count 6.3 X10^3/uL (2.0-7.7); Basophil# 0.03 X10^3/uL; Basophil% 0.4 % (0-1); Eosinophils% 1.3 % (0-5); Hematocrit 32.4 % (40-54); Hemoglobin 10.4 g/dL (13.0-16.5); Lymphocyte % 7.9 % (19-41); Mean Corp Hgb Conc 32.1 g/dL (32-36); Mean Corpuscular Hgb 30.1 pg (27.0-32.0); Mean Corpuscular Volume 93.9 fL (80-94); Mean Platelet Vol. 9.2 fl (6.2-12.0); Monocyte# 0.52 X10^3/uL; Monocyte% 6.9 % (0-10); NRBC Flagged by Analyzer 0 % (0-5); POSITIVE DIFFERENTIAL YES; Platelet Count 259 K/mm3 (150-450); RBC Distribution Width CV 15.1 % (11.6-14.6); RBC Distribution Width SD 51.2 fl (35.1-43.9); Red Blood Count 3.45 M/mm3 (4.6-6.2); White Blood Count 7.6 K/mm3 (4.4-11.0)
[2022-02-10 20:04] LABS: Differential Indicated SCAN CRITERIA MET
[2022-02-10 20:14] LABS: ALB/GLOB Ratio 0.9 RATIO (0.9-2.4); AST(SGOT) 36 U/L (15-37); Alanine Aminotransfer ALT/SGPT 20 U/L (16-61); Albumin, Serum 3.3 g/dL (3.2-5.0); Alkaline Phosphatase 87 U/L (45-117); Anion Gap 6 (5-15); BUN 27 mg/dL (7-18); BUN/Creat Ratio 14.1 RATIO (10-20); Calcium,Total 9.1 mg/dL (8.5-10.1); Chloride 110 mmol/L (98-107); Creatinine, Serum 1.91 mg/dL (0.70-1.30); EST Glomerular Filtration Rate 37 mL/min (>60); Est Glom Filt Rate - Afr Amer 45 mL/min (>60); Estimated Creatinine Clearance 35.57 ml/min; Globulin 3.5 g/dL (2.2-4.2); Glucose 110 mg/dL (74-106); Lipase 395 U/L (73-393); Potassium 4.4 mmol/L (3.5-5.1); Protein, Total 6.8 g/dL (6.4-8.2); Sodium Level 139 mmol/L (136-145)
[2022-02-10 20:23] LABS: Differential Comment SCANNED
--- NOTE | 2022-02-10 21:25 | PCM.HP.STD ---
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 His abdominal pain is located just above his umbilical area. His pain is non-radiating. His abdominal pain started 1 hour after eating oatmeal. He denies any aggravating or ameliorating factors except that morphine and Zofran that he was received at the emergency department provided him with some relief. He reports nausea without vomiting. Last time his bowels moved was about 1 hour before onset of his abdominal pain. He reports shortness of breath and fatigue for a while even before his symptoms of abdominal pain started. [facility] Medical History Atrial fibrillation Chest pain Hypertension Kidney disease Myocardial infarct Home Medications aspirin 81 mg PO DAILY 01/30/22 [History Last Taken 01/29/22] atenolol 25 mg PO BID 01/30/22 [History Last Taken 01/29/22] lisinopril 10 mg PO DAILY 01/30/22 [History Last Taken 01/29/22] nifedipine 30 mg PO DAILY 01/30/22 [History Last Taken 01/29/22] ascorbic acid (vitamin C) 500 mg PO BID #60 tab 02/02/22 [Rx Last Taken Unknown] ferrous sulfate [FeroSul] 325 mg PO QODAY #30 tab 02/02/22 [Rx Last Taken Unknown] nitroglycerin 0.4 mg SUBLINGUAL Q5M PRN #30 tab 02/02/22 [Rx Last Taken Unknown] pantoprazole 40 mg PO BID #60 tab 02/02/22 [Rx Last Taken Unknown] sucralfate 1 g PO 0700,1100,1600 #28 tab 02/02/22 [Rx Last Taken Unknown] Allergy/AdvReac Type Severity Reaction Status Date / Time prochlorperazine Allergy Anaphylaxis Verified 02/10/22 18:58 [From Compazine] Family History Other CVA (cerebral vascular accident) Myocardial infarction Surgical History History of bowel resection Hx of CABG Social History household members: none housing: house pets and animals: Yes pets and animals: cat(s) Smoking Status: Never smoker substance use type: does not use ROS ROS Narrative Pertinent positives and pertinent negatives as noted in HPI. All other systems were reviewed and are negative. Vital Signs Vital Signs Vital Signs: 02/10/22 19:02 Temperature 99.1 F Temperature Source Oral Pulse Rate 69 Respiratory Rate 17 Blood Pressure 186/89 H Blood Pressure Mean 121 Pulse Ox 100 Oxygen Delivery Method Room Air Weight Weight: 79.379 kg Body Mass Index (BMI) 25.1 Physical Exam Narrative Physical exam: General: Well-nourished, well-developed. Head: Normocephalic, atraumatic, no tenderness Eyes: Vision is grossly intact. EOMI ENT, no trauma, moist mucous membranes, no rhinorrhea Neck: Nontender, full range of motion, no spinal tenderness, deformities, step-off CVS: Regular rate and rhythm. S1-S2 present. No murmur, gallop or rub. Respiratory : Diminished lung sounds, chest wall nontender, no wheezing Abdomen: Soft, nontender, nondistended, normal bowel sounds, no masses : Deferred Back: Nontender, no CVA tenderness, no midline spinal tenderness, deformities, step-offs Extremities: Loss of multiple fingers. Loss of all toes. Nontender full range of motion, no trauma Skin: Normal color, no trauma, abrasions Neuro: Alert, oriented, cranial nerves II through XII grossly intact. Psychiatry: Normal mood. Normal affect. Not depressed. Not anxious. Results Lab / Micro Data Result Diagrams: 02/10/22 19:23 02/10/22 19:23 Labs: Laboratory Results - last 24 hr 02/10/22 19:23: WBC 7.6, RBC 3.45 L, Hgb 10.4 L, Hct 32.4 L, MCV 93.9, MCH 30.1, MCHC 32.1, RDW Std Deviation 51.2 H, RDW Coeff of Navneet 15.1 H, Plt Count 259, MPV 9.2, Immature Gran % (Auto) 0.500, Neut % (Auto) 83.0 H, Lymph % (Auto) 7.9 L, [place] % (Auto) 6.9, Eos % (Auto) 1.3, Baso % (Auto) 0.4, Absolute Neuts (auto) 6.3, Absolute Lymphs (auto) 0.60 L, Nucleated RBC % 0, Differential Comment SCANNED 02/10/22 19:23: Sodium 139, Potassium 4.4, Chloride 110 H, Carbon Dioxide 23.0, Anion Gap 6, BUN 27 H, Creatinine 1.91 H, Estim Creat Clear Calc 35.57, Est GFR (MDRD) Af Amer 45 L, Est GFR (MDRD) Non-Af 37 L, BUN/Creatinine Ratio 14.1, Glucose 110 H, Calcium 9.1, Total Bilirubin 0.30, AST 36, ALT 20, Alkaline Phosphatase 87, Total Protein 6.8, Albumin 3.3, Globulin 3.5, Albumin/Globulin Ratio 0.9, Lipase 395 H Radiology Impression Abdomen/Pelvis CT 02/10/22 19:49 IMPRESSION: Mildly dilated gas and fluid-filled loops of small bowel in the upper abdomen with normal caliber bowel distally represent a developing bowel obstruction. There is no obvious transition point or free air. There is some mild inflammation in the mesentery of the right lower quadrant surrounding loops of bowel. There is no abscess. No other acute abnormalities are identified. Electronically Signed: Nikita Ledesma MD at 21:00 EDT , Assessment & Plan Assessment/Plan (1) Small bowel obstruction: (2) BRYSON (acute kidney injury): PLAN: Small bowel obstruction Abdomen/pelvis CT was visualized and independently interpreted and I agree with radiologist impression above. We will keep patient n.p.o. and hold all oral medications. Gentle IV hydration. General surgery consult BRYSON on CKD stage IIIa Creatinine presentation was 1.91. Baseline creatinine around 1.3. BUN is 27. BUN over creatinine is 14.1. Likely ATN. Gentle IV hydration. Avoid nephrotoxins. Trend BMP CAD status post CABG On home atenolol; aspirin; lisinopril. With n.p.o. we will hold all oral medications. P.o. metoprolol IV ordered. No RIGOBERTO inhibitor as patient has BRYSON. Hypertension Blood pressure is not within goal Hold home blood pressure regimen in the setting of n.p.o. status. IV metoprolol ordered. As needed hydralazine IV ordered. Trend blood pressure and adjust blood pressure medications. Peptic ulcer disease On home p.o. Protonix. Change to IV Protonix at this time. Hold p.o. sucralfate. Chronic anemia Stable. Trend BMP. DVT prophylaxis: No chemical thromboprophylaxis as patient is a surgical candidate. SCD ordered. Charges/Coding Visit Charges Inpatient E&M: 15688 Init Hosp L3
[2022-02-10 22:01] VITALS: BP 153/86; PULSE 59; RESP 16; TEMP 36.4; O2SAT 96
--- NOTE | 2022-02-10 22:12 | EX.PCM.CON.S ---
Assessment & Plan Assessment/Plan (1) Small bowel obstruction: PLAN: Patient is a 72-year-old male with past history of CAD status post CABG, paroxysmal A. fib as well as CKD who presents with approximately 12-hour history of acute onset abdominal pain and obstructive symptoms (nausea without vomiting). He has experienced 1 prior episode 4 years ago of the symptoms which resolved through placement of a nasogastric tube and bowel decompression, conservatively. Patient did just undergo upper and lower endoscopy with findings of gastric and duodenal ulcers, but would still recommend placement of a nasogastric tube as his CT demonstrates multiple air-fluid levels and significant dilation of the small bowel?particularly proximally. Of note there is no transition zone noted with radiology. To try to mitigate his risk for tube?related trauma would recommend placing him on a scheduled PPI. We will continue to follow. HPI Consult Data Date of Consult: 02/10/22 HPI Narrative HPI Narrative: [place] CLIFFORD, is a 72 M who presents to [facility] with acute onset upper abdominal pain associated with nausea but no vomiting that began approximately 10 AM this morning. Patient states that he was recently in the hospital for diverticulosis and findings of gastric as well as duodenal ulcers per endoscopy with Dr. Baumann. He states that he did well following this hospitalization without any further signs of bleeding but following breakfast this morning noticed the onset of abdominal pain and nausea. Confirms that he did have a normal bowel movement this morning (albeit slightly darker in color due to the concurrent iron usage he is currently on). He states that this pain is very similar to pain he experienced 4 years ago when he required hospitalization for another bowel blockage. At that time he was told this is likely related to his prior surgical history of a bowel resection some 50 years ago. At that remote operation, he was told that there was a connection made between his small bowel and large bowel (right hemicolectomy?). Otherwise, he denies further issues with bowel obstructions or further surgeries. At present he states that his abdominal pain is well managed through the morphine he received recently and rates this now at a 3 or 4 out of 10 and denies any current nausea. [facility] Medical History Atrial fibrillation Chest pain Hypertension Kidney disease Myocardial infarct Home Medications aspirin 81 mg PO DAILY 01/30/22 [History Last Taken 01/29/22] atenolol 25 mg PO BID 01/30/22 [History Last Taken 01/29/22] lisinopril 10 mg PO DAILY 01/30/22 [History Last Taken 01/29/22] nifedipine 30 mg PO DAILY 01/30/22 [History Last Taken 01/29/22] ascorbic acid (vitamin C) 500 mg PO BID #60 tab 02/02/22 [Rx Last Taken Unknown] ferrous sulfate [FeroSul] 325 mg PO QODAY #30 tab 02/02/22 [Rx Last Taken Unknown] nitroglycerin 0.4 mg SUBLINGUAL Q5M PRN #30 tab 02/02/22 [Rx Last Taken Unknown] pantoprazole 40 mg PO BID #60 tab 02/02/22 [Rx Last Taken Unknown] sucralfate 1 g PO 0700,1100,1600 #28 tab 02/02/22 [Rx Last Taken Unknown] Allergy/AdvReac Type Severity Reaction Status Date / Time prochlorperazine Allergy Anaphylaxis Verified 02/10/22 18:58 [From Compazine] Family History Other CVA (cerebral vascular accident) Myocardial infarction Surgical History History of bowel resection Hx of CABG Social History household members: none housing: house pets and animals: Yes pets and animals: cat(s) Smoking Status: Never smoker substance use type: does not use Physical Exam Const alert, oriented x3 and no apparent distress General Appearance: cooperative Resp normal respiratory effort GI GI Narrative: Well-healed scar in lower midline of the abdomen. Soft, mildly distended, mildly tender across epigastric region of the abdomen. Lab / Micro Data Result Diagrams: 02/10/22 19:23 02/10/22 19:23 Labs: Laboratory Results - last 24 hr 02/10/22 19:23: WBC 7.6, RBC 3.45 L, Hgb 10.4 L, Hct 32.4 L, MCV 93.9, MCH 30.1, MCHC 32.1, RDW Std Deviation 51.2 H, RDW Coeff of Navneet 15.1 H, Plt Count 259, MPV 9.2, Immature Gran % (Auto) 0.500, Neut % (Auto) 83.0 H, Lymph % (Auto) 7.9 L, [place] % (Auto) 6.9, Eos % (Auto) 1.3, Baso % (Auto) 0.4, Absolute Neuts (auto) 6.3, Absolute Lymphs (auto) 0.60 L, Nucleated RBC % 0, Differential Comment SCANNED 02/10/22 19:23: Sodium 139, Potassium 4.4, Chloride 110 H, Carbon Dioxide 23.0, Anion Gap 6, BUN 27 H, Creatinine 1.91 H, Estim Creat Clear Calc 35.57, Est GFR (MDRD) Af Amer 45 L, Est GFR (MDRD) Non-Af 37 L, BUN/Creatinine Ratio 14.1, Glucose 110 H, Calcium 9.1, Total Bilirubin 0.30, AST 36, ALT 20, Alkaline Phosphatase 87, Total Protein 6.8, Albumin 3.3, Globulin 3.5, Albumin/Globulin Ratio 0.9, Lipase 395 H Radiology Impression Abdomen/Pelvis CT 02/10/22 19:49 IMPRESSION: Mildly dilated gas and fluid-filled loops of small bowel in the upper abdomen with normal caliber bowel distally represent a developing bowel obstruction. There is no obvious transition point or free air. There is some mild inflammation in the mesentery of the right lower quadrant surrounding loops of bowel. There is no abscess. No other acute abnormalities are identified. Electronically Signed: Nikita Ledesma MD at 21:00 EDT , Charges/Coding Visit Charges Inpatient E&M: 01139 Init Hosp L2
[2022-02-10 22:21] VITALS: BMI 23.3
[2022-02-10 22:37] VITALS: BP 182/82; PULSE 58; RESP 18; TEMP 37.2; O2SAT 100
[2022-02-10] MEDS: Morphine 2 MG/ML Syringe IV (22:52)
[2022-02-10] MEDS: 0.9% Saline Lock 10 ML Syringe IV (22:53)
[2022-02-10 22:55] VITALS: BP 182/82; PULSE 58
[2022-02-10] MEDS: 0.9% Normal Saline 1,000 ML 75 ML IV (22:55)
[2022-02-10] MEDS: Metoprolol Tartrate 5 MG/5 ML Vial IV (22:55)
[2022-02-10 22:56] VITALS: PULSE 58
[2022-02-10] MEDS: Benzocaine 20% Metered Spray 57 gm 1 APPLIC MUCOUS MEM (23:39)
--- NOTE | 2022-02-10 23:55 | RAD_ITS ---
EXAM: XR ABDOMEN, 1 VIEW CLINICAL INDICATION: NG placement TECHNIQUE: Frontal supine view of the abdomen/pelvis. This report was created using [employer] report generation technology. COMPARISON: None. FINDINGS: LOWER THORAX: See below. GASTROINTESTINAL TRACT: Unremarkable. Non-obstructive. No bowel or stomach distention. ORGANS: Unremarkable as visualized. No organomegaly. No abnormal calcifications. BONES/JOINTS: No acute pathology. SOFT TISSUES: No acute pathology. TUBES, LINES AND DEVICES: Nasogastric tube is in place with the distal tip in the proximal stomach. The side-port is at the gastroesophageal junction. RAD/Abdomen Single View IMPRESSION: Nasogastric tube with the distal tip in the proximal stomach. This should be advanced several centimeters. Electronically Signed: Nikita Ledesma MD at 0:49 EDT ,
[2022-02-11] VITALS (14 sets, daily range): BP systolic 130–178; BP diastolic 70–81; PULSE 48–64; RESP 16–18; TEMP 36.6–37; O2SAT 94–100
--- NOTE | 2022-02-11 01:10 | RAD_ITS ---
EXAM: XR ABDOMEN, 1 VIEW CLINICAL INDICATION: line placement TECHNIQUE: Frontal supine view of the abdomen/pelvis. This report was created using [employer] report generation technology. COMPARISON: 02/10/2022 FINDINGS: LOWER THORAX: No acute pathology. GASTROINTESTINAL TRACT: There are dilated gas-filled loops of small bowel in the upper abdomen. ORGANS: Unremarkable as visualized. No organomegaly. No abnormal calcifications. BONES/JOINTS: No acute pathology. SOFT TISSUES: No acute pathology. TUBES, LINES AND DEVICES: Nasogastric tube has been mildly advanced for the successive now proximal to mid stomach. RAD/Abdomen Single View (Portable) IMPRESSION: 1. Nasogastric tube with distal tip in the proximal to mid stomach. 2. Mildly dilated gas-filled loops of small bowel in the upper abdomen which may represent a small bowel obstruction. Electronically Signed: Nikita Ledesma MD at 1:59 EDT ,
[2022-02-11] MEDS: Morphine 2 MG/ML Syringe IV ×2 (01:54→05:49)
[2022-02-11] MEDS: 0.9% Saline Lock 10 ML Syringe IV ×4 (01:54→12:00)
[2022-02-11] MEDS: Ondansetron 4 MG/2 ML Vial IV ×2 (02:08→12:00)
[2022-02-11] MEDS: hydrALAZINE 20 MG/ML Vial 10 MG IV (02:10)
[2022-02-11 05:38] LABS: Absolute Lymphocyte Count 0.45 X10^3/uL (0.83-4.51); Absolute Neutrophil Count 5.6 X10^3/uL (2.0-7.7); Basophil# 0.04 X10^3/uL; Basophil% 0.6 % (0-1); Eosinophil# 0.06 X10^3/uL; Eosinophils% 0.9 % (0-5); Hematocrit 31.9 % (40-54); Hemoglobin 10.4 g/dL (13.0-16.5); Lymphocyte # 0.45 X10^3/ul (0.83-4.51); Lymphocyte % 6.9 % (19-41); Mean Corp Hgb Conc 32.6 g/dL (32-36); Mean Corpuscular Hgb 30.6 pg (27.0-32.0); Mean Corpuscular Volume 93.8 fL (80-94); Mean Platelet Vol. 8.8 fl (6.2-12.0); Monocyte% 6.1 % (0-10); NRBC Flagged by Analyzer 0 % (0-5); Neutrophil # 5.58 X10^3/uL (2.7-7.7); POSITIVE DIFFERENTIAL YES; Platelet Count 222 K/mm3 (150-450); RBC Distribution Width CV 15.2 % (11.6-14.6); RBC Distribution Width SD 50.5 fl (35.1-43.9); White Blood Count 6.6 K/mm3 (4.4-11.0)
[2022-02-11 05:40] LABS: Differential Indicated SCAN CRITERIA MET
[2022-02-11 05:59] LABS: Differential Comment SCANNED
[2022-02-11 06:01] LABS: Anion Gap 5 (5-15); BUN 26 mg/dL (7-18); BUN/Creat Ratio 16.1 RATIO (10-20); Calcium,Total 8.6 mg/dL (8.5-10.1); Chloride 110 mmol/L (98-107); Creatinine, Serum 1.61 mg/dL (0.70-1.30); EST Glomerular Filtration Rate 45 mL/min (>60); Est Glom Filt Rate - Afr Amer 54 mL/min (>60); Estimated Creatinine Clearance 42.19 ml/min; Glucose 116 mg/dL (74-106); Potassium 4.2 mmol/L (3.5-5.1); Sodium Level 138 mmol/L (136-145)
--- NOTE | 2022-02-11 08:53 | PN.SURG_ITS ---
Subjective Subjective Patient seen and examined during AM rounds. He is found sitting upright in bed resting comfortably. He states that he feels much better than last evening. By this he explains that his abdominal pain is much improved. He denies any passage of gas yet. Objective Data Objective Data Vital Signs: Vital Signs Temp Pulse Resp BP Pulse Ox 98.6 F 48 L 18 130/71 H 99 02/11/22 05:38 02/11/22 08:27 02/11/22 05:38 02/11/22 05:38 02/11/22 05:38 Oxygen Delivery Method Room Air Weight: 163 lb 2 oz Body Mass Index (BMI) 23.3 Intake & Output: Intake and Output for Last 24 Hours 02/09/22 02/10/22 02/11/22 23:59 23:59 23:59 Intake Total 160 / 160 100 / 100 Output Total 800 / 800 Balance 160 / 160 -700 / -700 Lab / Micro Data Result Diagrams: 02/11/22 05:20 02/11/22 05:20 Labs: Laboratory Results - last 24 hr 02/10/22 19:23: WBC 7.6, RBC 3.45 L, Hgb 10.4 L, Hct 32.4 L, MCV 93.9, MCH 30.1, MCHC 32.1, RDW Std Deviation 51.2 H, RDW Coeff of Navneet 15.1 H, Plt Count 259, MPV 9.2, Immature Gran % (Auto) 0.500, Neut % (Auto) 83.0 H, Lymph % (Auto) 7.9 L, [place] % (Auto) 6.9, Eos % (Auto) 1.3, Baso % (Auto) 0.4, Absolute Neuts (auto) 6.3, Absolute Lymphs (auto) 0.60 L, Nucleated RBC % 0, Differential Comment SCANNED 02/10/22 19:23: Sodium 139, Potassium 4.4, Chloride 110 H, Carbon Dioxide 23.0, Anion Gap 6, BUN 27 H, Creatinine 1.91 H, Estim Creat Clear Calc 35.57, Est GFR (MDRD) Af Amer 45 L, Est GFR (MDRD) Non-Af 37 L, BUN/Creatinine Ratio 14.1, Glucose 110 H, Calcium 9.1, Total Bilirubin 0.30, AST 36, ALT 20, Alkaline Phosphatase 87, Total Protein 6.8, Albumin 3.3, Globulin 3.5, Albumin/Globulin Ratio 0.9, Lipase 395 H 02/11/22 05:20: WBC 6.6, RBC 3.40 L, Hgb 10.4 L, Hct 31.9 L, MCV 93.8, MCH 30.6, MCHC 32.6, RDW Std Deviation 50.5 H, RDW Coeff of Navneet 15.2 H, Plt Count 222, MPV 8.8, Immature Gran % (Auto) 0.500, Neut % (Auto) 85.0 H, Lymph % (Auto) 6.9 L, [place] % (Auto) 6.1, Eos % (Auto) 0.9, Baso % (Auto) 0.6, Absolute Neuts (auto) 5.6, Absolute Lymphs (auto) 0.45 L, Nucleated RBC % 0, Differential Comment SCANNED 02/11/22 05:20: Sodium 138, Potassium 4.2, Chloride 110 H, Carbon Dioxide 23.0, Anion Gap 5, BUN 26 H, Creatinine 1.61 H, Estim Creat Clear Calc 42.19, Est GFR (MDRD) Af Amer 54 L, Est GFR (MDRD) Non-Af 45 L, BUN/Creatinine Ratio 16.1, Glucose 116 H, Calcium 8.6 Radiography Diagnostic Testing: Radiology Impression Abdomen/Pelvis CT 02/10/22 19:49 IMPRESSION: Mildly dilated gas and fluid-filled loops of small bowel in the upper abdomen with normal caliber bowel distally represent a developing bowel obstruction. There is no obvious transition point or free air. There is some mild inflammation in the mesentery of the right lower quadrant surrounding loops of bowel. There is no abscess. No other acute abnormalities are identified. Electronically Signed: Nikita Ledesma MD at 21:00 EDT , KUB X-Ray 02/10/22 23:55 IMPRESSION: Nasogastric tube with the distal tip in the proximal stomach. This should be advanced several centimeters. Electronically Signed: Nikita Ledesma MD at 0:49 EDT , KUB X-Ray 02/11/22 01:10 IMPRESSION: 1. Nasogastric tube with distal tip in the proximal to mid stomach. 2. Mildly dilated gas-filled loops of small bowel in the upper abdomen which may represent a small bowel obstruction. Electronically Signed: Nikita Ledesma MD at 1:59 EDT , Physical Exam Const no apparent distress Resp normal respiratory effort GI GI Narrative: Less distended, minimally tender to palpation over the epigastrium. Nasogastric tube in place and functional (although there was some clogging of the tube due to thicker pink material which patient believes was Tums he ingested last evening) draining moderately thick red-pink material. Assessment & Plan Assessment/Plan (1) Small bowel obstruction: PLAN: Patient hospital day 1 for admission for small bowel obstruction thr ough the ER last evening. Nasogastric tube was inserted upon his arrival to the floor and appears in good position by my review of the KUB. This is also resulted in decreased distention with patient's exam. Still, he is denying any passage of flatus. At this point, I recommend performing a small bowel series with Gastrografin via his NG tube to assess for point of blockage/encourage relief of side blockage. Charges/Coding Visit Charges Inpatient E&M: 80018 Subs Hosp L2
--- NOTE | 2022-02-11 09:00 | RAD_ITS ---
EXAM: FL SMALL BOWEL FOLLOW THROUGH CLINICAL INDICATION: small bowel obstruction TECHNIQUE: Fluoroscopy of the small bowel including multiple serial delayed images following oral contrast administration. Fluoroscopic guidance was provided by a physician. This report was created using [employer] report generation technology. COMPARISON: 02/11/2022 02/10/2022 FINDINGS: 6 radiographic of the abdomen obtained immediately following contrast administration via the endogastric tube up to 4 hours delay. Contrast progression through the small bowel noted with visualization of the ascending colon at 1 hour and visualization of the distal colon and rectum at 4 hours. Contrast outlines multiple colon diverticula. Mucosal pattern of the proximal small bowel appears normal. Haustral markings within the large bowel are normal. RAD/Small Bowel Series Only IMPRESSION: Partial small bowel obstruction versus ileus. Electronically Signed: Kashif Prieto MD at 14:26 EDT Reading Location ID and State: [facility] / [place] Tel , Service support ,
--- NOTE | 2022-02-11 09:12 | NURSING ---
Radiology here to start SMall Bowel Series. This RN was informed by them to not turn on suction until they have told me too. Suction is off at this time.
--- NOTE | 2022-02-11 09:42 | NURSING ---
This nurse went to apply SCD's on pt, pt refused. I don't want those on me.
[2022-02-11] MEDS: 0.9% Normal Saline 1,000 ML 75 ML IV ×2 (10:55→21:00)
--- NOTE | 2022-02-11 11:14 | PCM.PN.HOSP ---
Documented by User: Jian MCLEAN 02/11/22 11:30 Subjective Subjective Patient is a 72-year-old male resting in bed, alert and orient x3. Patient reports that his abdominal pain has improved from admission, still denies having any flatus. Does not appear in acute distress. Objective Data Objective Data Vital Signs: Vital Signs Temp Pulse Resp BP Pulse Ox 98.6 F 52 L 16 136/70 H 100 02/11/22 09:10 02/11/22 09:10 02/11/22 09:10 02/11/22 09:10 02/11/22 09:10 Oxygen Delivery Method Room Air Weight: 163 lb 2 oz Body Mass Index (BMI) 23.3 Intake & Output: Intake and Output for Last 24 Hours 02/09/22 02/10/22 02/11/22 23:59 23:59 23:59 Intake Total 160 / 160 982.5 / 982.5 Output Total 800 / 800 Balance 160 / 160 182.5 / 182.5 Lab / Micro Data Result Diagrams: 02/11/22 05:20 02/11/22 05:20 Labs: Laboratory Results - last 24 hr 02/10/22 19:23: WBC 7.6, RBC 3.45 L, Hgb 10.4 L, Hct 32.4 L, MCV 93.9, MCH 30.1, MCHC 32.1, RDW Std Deviation 51.2 H, RDW Coeff of Navneet 15.1 H, Plt Count 259, MPV 9.2, Immature Gran % (Auto) 0.500, Neut % (Auto) 83.0 H, Lymph % (Auto) 7.9 L, [place] % (Auto) 6.9, Eos % (Auto) 1.3, Baso % (Auto) 0.4, Absolute Neuts (auto) 6.3, Absolute Lymphs (auto) 0.60 L, Nucleated RBC % 0, Differential Comment SCANNED 02/10/22 19:23: Sodium 139, Potassium 4.4, Chloride 110 H, Carbon Dioxide 23.0, Anion Gap 6, BUN 27 H, Creatinine 1.91 H, Estim Creat Clear Calc 35.57, Est GFR (MDRD) Af Amer 45 L, Est GFR (MDRD) Non-Af 37 L, BUN/Creatinine Ratio 14.1, Glucose 110 H, Calcium 9.1, Total Bilirubin 0.30, AST 36, ALT 20, Alkaline Phosphatase 87, Total Protein 6.8, Albumin 3.3, Globulin 3.5, Albumin/Globulin Ratio 0.9, Lipase 395 H 02/11/22 05:20: WBC 6.6, RBC 3.40 L, Hgb 10.4 L, Hct 31.9 L, MCV 93.8, MCH 30.6, MCHC 32.6, RDW Std Deviation 50.5 H, RDW Coeff of Navneet 15.2 H, Plt Count 222, MPV 8.8, Immature Gran % (Auto) 0.500, Neut % (Auto) 85.0 H, Lymph % (Auto) 6.9 L, [place] % (Auto) 6.1, Eos % (Auto) 0.9, Baso % (Auto) 0.6, Absolute Neuts (auto) 5.6, Absolute Lymphs (auto) 0.45 L, Nucleated RBC % 0, Differential Comment SCANNED 02/11/22 05:20: Sodium 138, Potassium 4.2, Chloride 110 H, Carbon Dioxide 23.0, Anion Gap 5, BUN 26 H, Creatinine 1.61 H, Estim Creat Clear Calc 42.19, Est GFR (MDRD) Af Amer 54 L, Est GFR (MDRD) Non-Af 45 L, BUN/Creatinine Ratio 16.1, Glucose 116 H, Calcium 8.6 Radiography Diagnostic Testing: Radiology Impression Abdomen/Pelvis CT 02/10/22 19:49 IMPRESSION: Mildly dilated gas and fluid-filled loops of small bowel in the upper abdomen with normal caliber bowel distally represent a developing bowel obstruction. There is no obvious transition point or free air. There is some mild inflammation in the mesentery of the right lower quadrant surrounding loops of bowel. There is no abscess. No other acute abnormalities are identified. Electronically Signed: Nikita Ledesma MD at 21:00 EDT , KUB X-Ray 02/10/22 23:55 IMPRESSION: Nasogastric tube with the distal tip in the proximal stomach. This should be advanced several centimeters. Electronically Signed: Nikita Ledesma MD at 0:49 EDT , KUB X-Ray 02/11/22 01:10 IMPRESSION: 1. Nasogastric tube with distal tip in the proximal to mid stomach. 2. Mildly dilated gas-filled loops of small bowel in the upper abdomen which may represent a small bowel obstruction. Electronically Signed: Nikita Ledesma MD at 1:59 EDT , Physical Exam Const alert, oriented x3 and no apparent distress HEENT HEENT Narrative: NG tube in place and functional. Eyes PERRL, EOMs intact bilaterally and conjunctivae normal Neck no lymphadenopathy, supple and no JVD Resp normal respiratory effort, no retractions and no use of accessory muscles Cardio regular rate, regular rhythm and no JVD GI GI Narrative: Mild epigastric pain noted, belly is soft and nondistended throughout. Extremity normal to inspection, full ROM and no clubbing, cyanosis or edema Skin no rashes or lesions noted, no wounds and skin turgor normal Neuro CN's II-XII intact bilaterally Psych affect normal Assessment & Plan Assessment/Plan (1) Small bowel obstruction: (2) Abdominal pain: PLAN: Day 1 Discharge planning: Current plan is for patient to discharge home when medically ready. 1) small bowel obstruction S/p NG tube placement. Management per general surgery. Patient reports subjective improvement in his abdominal pain, belly is soft and not distended throughout. Given absence of any flatus currently, current plan is to do small bowel series to assess for blockage. Continue supportive medications, IVF and n.p.o. status. 2) BRYSON on CKD stage IIIa Creatinine per improve to 1.61. Continue gentle IV fluids, avoid nephrotoxic's and continue to trend BMP. 3) CAD status post CABG Home CAD regimen on hold given n.p.o. status, IV metoprolol ordered. Hold home lisinopril given #2. 4) HTN Well-controlled, continue IV metoprolol. IV hydralazine as needed. 5) PUD Continue IV PPI given n.p.o. status. Hold home sucralfate. DVT prophylaxis - SCDs Patient seen by Jian Brown PA-C, under the supervision of Dr. Caban. Time spent on patient care: 10 minutes. Documented by User: Dr. Fahad Caban DO 02/11/22 11:41 Subjective Subjective NG taken off suction for SBFT. Overall, he feels better. Objective Data Lab / Micro Data Result Diagrams: 02/11/22 05:20 02/11/22 05:20 Physical Exam Const alert and no apparent distress Resp normal respiratory effort, no retractions, no use of accessory muscles and clear to auscultation bilaterally Cardio regular rate, regular rhythm, S1 normal heart sound and S2 normal heart sound GI normal to inspection, nondistended, normoactive bowel sounds, soft to palpation, non-tender and non-distended Extremity normal to inspection Assessment & Plan Assessment/Plan (1) Small bowel obstruction: PLAN: Patient seen and examined independently. Data and vitals reviewed. I agree with the above note by the physician primary teaching assistant. 1. Small bowel obstruction This is patient's second round of having a small bowel obstruction. Previous events resolve spontaneously on his own. Appreciate general surgery's input and management. Small bowel follow-through has been ordered. Discussed with the patient in detail about the typical etiology of small bowel obstructions and correlation with adhesions many times. Also explained general management including surgical management and his last resort would be surgery. 2. Acute kidney injury Improved This patient is currently n.p.o., continue with IV fluids. Greater than 20minutes spent reviewing data, discussing with patient and also examining patient. Charges/Coding Visit Charges Inpatient E&M: 49259 Subs Hosp L2
--- NOTE | 2022-02-11 16:27 | NURSING ---
Dr. Sifuentes just in to see pt and came out to desk to inform this nurse that Dr. Sifuentes took the NG out.
[2022-02-11] MEDS: Ascorbic Acid 500 MG Tablet PO (21:00)
[2022-02-11] MEDS: Atenolol 25 MG Tablet PO (21:00)
[2022-02-11] MEDS: Pantoprazole Sodium 40 MG Tablet PO (21:00)
[2022-02-12 03:33] VITALS: BP 133/69; PULSE 56; RESP 18; TEMP 36.6; O2SAT 97
[2022-02-12 05:22] LABS: Absolute Lymphocyte Count 0.75 X10^3/uL (0.83-4.51); Absolute Neutrophil Count 3.1 X10^3/uL (2.0-7.7); Basophil# 0.04 X10^3/uL; Basophil% 0.8 % (0-1); Eosinophil# 0.32 X10^3/uL; Eosinophils% 6.8 % (0-5); Hematocrit 27.3 % (40-54); Hemoglobin 8.8 g/dL (13.0-16.5); Lymphocyte # 0.75 X10^3/ul (0.83-4.51); Lymphocyte % 15.9 % (19-41); Mean Corp Hgb Conc 32.2 g/dL (32-36); Mean Corpuscular Hgb 30.2 pg (27.0-32.0); Mean Corpuscular Volume 93.8 fL (80-94); Mean Platelet Vol. 9.6 fl (6.2-12.0); Monocyte# 0.46 X10^3/uL; Monocyte% 9.7 % (0-10); NRBC Flagged by Analyzer 0 % (0-5); Neutrophil # 3.14 X10^3/uL (2.7-7.7); Neutrophil % 66.6 % (47-70); POSITIVE COUNT YES; Platelet Count 161 K/mm3 (150-450); RBC Distribution Width CV 15.3 % (11.6-14.6); RBC Distribution Width SD 51.9 fl (35.1-43.9); Red Blood Count 2.91 M/mm3 (4.6-6.2); White Blood Count 4.7 K/mm3 (4.4-11.0)
[2022-02-12 05:24] LABS: Differential Indicated SCAN CRITERIA MET
[2022-02-12 05:37] LABS: Anion Gap 6 (5-15); BUN 19 mg/dL (7-18); BUN/Creat Ratio 12.6 RATIO (10-20); Chloride 111 mmol/L (98-107); Creatinine, Serum 1.51 mg/dL (0.70-1.30); EST Glomerular Filtration Rate 48 mL/min (>60); Est Glom Filt Rate - Afr Amer 59 mL/min (>60); Estimated Creatinine Clearance 44.99 ml/min; Glucose 89 mg/dL (74-106); Potassium 3.9 mmol/L (3.5-5.1); Sodium Level 139 mmol/L (136-145)
[2022-02-12] MEDS: Sucralfate 1 GM Tablet PO ×2 (06:24→11:54)
--- NOTE | 2022-02-12 08:30 | PCM.PN.SRG ---
Subjective Subjective Patient seen and examined during AM rounds. He is found resting quietly and comfortably in bed. He states that he is very hungry this morning and confirms that he is continue to pass gas overnight. Objective Data Objective Data Vital Signs: Vital Signs Temp Pulse Resp BP Pulse Ox 97.8 F 56 L 18 133/69 H 97 02/12/22 03:33 02/12/22 03:33 02/12/22 03:33 02/12/22 03:33 02/12/22 03:33 Oxygen Delivery Method Room Air Weight: 163 lb 2 oz Body Mass Index (BMI) 23.3 Intake & Output: Intake and Output for Last 24 Hours 02/10/22 02/11/22 02/12/22 23:59 23:59 23:59 Intake Total 160 / 160 1968.75 / 1968.75 Output Total 850 / 850 Balance 160 / 160 1118.75 / 1118.75 Lab / Micro Data Result Diagrams: 02/12/22 05:10 02/12/22 05:10 Labs: Laboratory Results - last 24 hr 02/12/22 05:10: WBC 4.7, RBC 2.91 L, Hgb 8.8 L, Hct 27.3 L, MCV 93.8, MCH 30.2, MCHC 32.2, RDW Std Deviation 51.9 H, RDW Coeff of Navneet 15.3 H, Plt Count 161, MPV 9.6, Immature Gran % (Auto) 0.200, Neut % (Auto) 66.6, Lymph % (Auto) 15.9 L, [place] % (Auto) 9.7, Eos % (Auto) 6.8 H, Baso % (Auto) 0.8, Absolute Neuts (auto) 3.1, Absolute Lymphs (auto) 0.75 L, Nucleated RBC % 0 02/12/22 05:10: Sodium 139, Potassium 3.9, Chloride 111 H, Carbon Dioxide 22.0, Anion Gap 6, BUN 19 H, Creatinine 1.51 H, Estim Creat Clear Calc 44.99, Est GFR (MDRD) Af Amer 59 L, Est GFR (MDRD) Non-Af 48 L, BUN/Creatinine Ratio 12.6, Glucose 89, Calcium 8.0 L Radiography Diagnostic Testing: Radiology Impression Small Bowel X-Ray 02/11/22 09:00 IMPRESSION: Partial small bowel obstruction versus ileus. Electronically Signed: Kashif Prieto MD at 14:26 EDT , Physical Exam Const no apparent distress Resp normal respiratory effort GI GI Narrative: Nondistended, soft, nontender to palpation x4 quadrants Assessment & Plan Assessment/Plan (1) Small bowel obstruction: PLAN: Patient hospital day 2 for admission for small bowel obstruction through the ER. Patient successfully passed a small bowel series yesterday and nasogastric tube was removed. He is tolerating clear liquids without issue, claims further bowel function, and expresses a strong appetite. Patient showing some anemia with his labs today, but there are no overt signs of ongoing blood loss. Continue PPI given recent finding of peptic ulcer. ? Advance to soft, low residue diet ? If patient tolerates the above, he could be eligible for discharge from a surgical standpoint and would recommend maintaining a low fiber status for 2 weeks post hospital discharge. Examples of low fiber foods were given. Charges/Coding Visit Charges Inpatient E&M: 16366 Subs Hosp L2
[2022-02-12 08:33] VITALS: BP 178/79; PULSE 55; RESP 16; TEMP 36.6; O2SAT 100
[2022-02-12 08:35] VITALS: BP 157/78
[2022-02-12] MEDS: Pantoprazole Sodium 40 MG Tablet PO (08:36)
[2022-02-12] MEDS: Ferrous Sulfate 325 MG Tablet PO (08:36)
[2022-02-12] MEDS: Ascorbic Acid 500 MG Tablet PO (08:36)
[2022-02-12] MEDS: Atenolol 25 MG Tablet PO (08:36)
[2022-02-12] MEDS: Aspirin 81 MG TAB.CHEW PO (08:36)
[2022-02-12] MEDS: NIFEdipine 30 MG Tablet PO (08:37)
[2022-02-12] MEDS: Lisinopril 10 MG Tablet PO (08:37)
--- NOTE | 2022-02-12 10:32 | CASEMGMT ---
Addendum entered by Sandra Reza 02/12/22 11:34: Pt screened with [facility] Palliative Care Screening Tool due to readmission, pt did not meet criteria. Addendum entered by Sandra Reza 02/12/22 11:31: MARY AVILA printed off information from [facility] website and provided to pt. Pt states this is where he sees the RESEARCH AGRICULTURAL ENGINEER for cardiology. He would like to review with her the information before he determines who he would like to be his PCP. Pt denies need for help with this. Pt denies further needs. Original Note: MARY AVILA Readmission Note Previous Admission: 01/30/22-02/02/22 Diagnosis: GIB, CP DC Disposition: Home Current Admission Diagnosis: SBO Pt admitted from [facility] for SBO. Pt had upper abdominal pain with nausea and no vomiting. Pt had NG which has been pulled and pt is advancing diet. Pt reports he feels much better today. Pt did schedule his follow up appts, Jaida Padron RESEARCH AGRICULTURAL ENGINEER was scheduled for tomorrow and for 3 weeks post dc. Pt has not obtained a PCP but he is agreeable to this MARY AVILA to provide him with physicians in [place]. Pt states he has not used the [facility] transportation and has secured transportation through a neighbor. Pt reports taking his medications as ordered and he has created a chart where he checks them off. Pt states he feels his strength is good and denies any homegoing needs. DC PLAN: Home
--- NOTE | 2022-02-12 11:12 | DCINST_ITS ---
Discharge Instructions Diet Discharge Diet: Light diet - advance as tolerated and - (Low residue diet x2 weeks. ) Activity Discharge Activity: Return to Normal Activity Weight Bearing Status: Weight bearing as tolerated Dressing / Incision Call your doctor if you observe: Fever of 101 or Higher, Numbness or Tingling, Shortness of breath, Dizziness, Chest pain, Increased palpitations (irregular heartbeat) and Calf discomfort Follow Up Care Please Follow Up With: Primary care provider When: Within the next two weeks. Test Results: Test results from this visit will be discussed in further detail at your follow-up appointment, if applicable. Discharge Plan Admission Admit Date/Time: 02/10/22 21:44 Primary Reason for Your Visit: Small bowel obstruction. Attending Provider: Brittani Blankenship Primary Care Provider: Jaida Padron NP Consulting Providers: Carlos Sifuentes Instructions Additional Instructions / Restrictions: * Take note of your low residue diet for 2 weeks. Discharge Orders/Prescriptions Prescriptions: Continued nifedipine 30 mg tablet extended release 24hr 30 mg PO DAILY RF: 0 atenolol 25 mg tablet 25 mg PO BID RF: 0 lisinopril 10 mg tablet 10 mg PO DAILY RF: 0 aspirin 81 mg Tablet 81 mg PO DAILY RF: 0 sucralfate 1 gram Tablet 1 g PO 0700,1100,1600 Qty: 28 RF: 0 pantoprazole 40 mg Tablet,Delayed Release (Dr/Ec) 40 mg PO BID Qty: 60 RF: 2 nitroglycerin 0.4 mg Tablet, Sublingual 0.4 mg sublingual Q5M PRN (Reason: Cardiac/Chest Pain) Qty: 30 RF: 0 ferrous sulfate [FeroSul] 325 mg (65 mg iron) tablet 325 mg PO QODAY Qty: 30 RF: 2 ascorbic acid (vitamin C) 500 mg tablet 500 mg PO BID Qty: 60 RF: 0 Referrals / Follow Up: Jaida Padron NP, [employer] [Primary Care Provider] - Within 2 Weeks Disposition Disposition (needs filled in before D/C Order can be placed): Home, Self Care
--- NOTE | 2022-02-12 13:11 | PCM.DC.SUM ---
Documented by User: Jian MCLEAN 02/12/22 13:16 Providers Date of Admission: 02/10/22 Date of Discharge: 02/12/22 Primary Care Physician: AMY Phillips Consultations 02/11/22 16:38 Consult: General Surgery Routine Consulting Provider: Carlos Sifuentes Reason for Consult: SBO EMERGENT Consult: No MD Notified: Yes Date Notified: 02/11/22 Time Notified: 16:38 Method of Notification: ED Physician Initiated Reason For Visit: SMALL BOWEL OBSTRUCTION Diagnosis Discharge Diagnosis (1) Small bowel obstruction: Status: Acute Code(s): K56.609 - Unspecified intestinal obstruction, unspecified as to partial versus complete obstruction Medications at Discharge Home Medications aspirin 81 mg PO DAILY 01/30/22 atenolol 25 mg PO BID 01/30/22 lisinopril 10 mg PO DAILY 01/30/22 nifedipine 30 mg PO DAILY 01/30/22 ascorbic acid (vitamin C) 500 mg PO BID #60 tab 02/02/22 ferrous sulfate [FeroSul] 325 mg PO QODAY #30 tab 02/02/22 nitroglycerin 0.4 mg SUBLINGUAL Q5M PRN #30 tab 02/02/22 pantoprazole 40 mg PO BID #60 tab 02/02/22 sucralfate 1 g PO 0700,1100,1600 #28 tab 02/02/22 Hospital Course Summary of Care Provided Minutes Spent on Discharge: 20 Hospital Course: Patient is a 72-year-old male who was admitted to [facility] on 02/10/2022 for evaluation management of small bowel obstruction. Hospital course and management as below. 1) small bowel obstruction Patient was evaluated by general surgery on admission, who placed NG tube. Patient successfully passed a small bowel series on 02/11/2022, an NG tube was subsequently removed. Patient diet was advanced slowly and patient was able to tolerate transitional diet on the day of discharge. Patient did report passing of flatus on day of discharge. It was recommended by general surgery team that patient maintain a transitional/low residue diet for the next 2 weeks. No follow-up necessary. 2) BRYSON on CKD stage IIIa Creatinine was 1.51 on day of discharge, improved with fluids. 3) CAD status post CABG Continue home CAD regimen. 4) HTN Continue home HTN regimen. 5) PUD Continue home PPI and sulcal fate. Patient seen by Jian Brown PA-C, under the supervision of Dr. Blankenship. Time spent on patient care: 20 minutes. Physical Exam Narrative Patient is a 72-year-old male comfortably resting in bed, alert and orient x3. Patient reports tolerating his transitional diet well, does report that he is able to pass flatus. Const alert, oriented x3 and no apparent distress HEENT normocephalic, head/scalp atraumatic and hearing grossly normal bilaterally Eyes PERRL, EOMs intact bilaterally and conjunctivae normal Neck no lymphadenopathy, supple and no JVD Resp normal respiratory effort, no retractions and no use of accessory muscles Cardio regular rate, regular rhythm and no JVD GI normal to inspection, nondistended, normoactive bowel sounds Extremity normal to inspection, full ROM and no clubbing, cyanosis or edema Skin no rashes or lesions noted Neuro CN's II-XII intact bilaterally Psych affect normal Weight / BMI Weight Weight: 163 lb 2 oz Body Mass Index (BMI) 23.3 ABG / Lab / Microbiology Data Result Diagrams: 02/12/22 05:10 02/12/22 05:10 Laboratory: Laboratory Results - last 24 hr 02/12/22 05:10: WBC 4.7, RBC 2.91 L, Hgb 8.8 L, Hct 27.3 L, MCV 93.8, MCH 30.2, MCHC 32.2, RDW Std Deviation 51.9 H, RDW Coeff of Navneet 15.3 H, Plt Count 161, MPV 9.6, Immature Gran % (Auto) 0.200, Neut % (Auto) 66.6, Lymph % (Auto) 15.9 L, [place] % (Auto) 9.7, Eos % (Auto) 6.8 H, Baso % (Auto) 0.8, Absolute Neuts (auto) 3.1, Absolute Lymphs (auto) 0.75 L, Nucleated RBC % 0 02/12/22 05:10: Sodium 139, Potassium 3.9, Chloride 111 H, Carbon Dioxide 22.0, Anion Gap 6, BUN 19 H, Creatinine 1.51 H, Estim Creat Clear Calc 44.99, Est GFR (MDRD) Af Amer 59 L, Est GFR (MDRD) Non-Af 48 L, BUN/Creatinine Ratio 12.6, Glucose 89, Calcium 8.0 L Radiography Diagnostic Testing: Radiology Impression Small Bowel X-Ray 02/11/22 09:00 IMPRESSION: Partial small bowel obstruction versus ileus. Electronically Signed: Kashif Prieto MD at 14:26 EDT , D/C Instructions Discharge Diet: Light diet - advance as tolerated and - (Low residue diet x2 weeks. ) Weight Bearing Status: Weight bearing as tolerated Call your doctor if you observe: Fever of 101 or Higher, Numbness or Tingling, Shortness of breath, Dizziness, Chest pain, Increased palpitations (irregular heartbeat) and Calf discomfort Please Follow Up With: Primary care provider When: Within the next two weeks. Meaningful Use Info Meaningful Use Diagnoses (Choose all that apply): None applicable Discharge Plan Admission Admit Date/Time: 02/10/22 21:44 Primary Reason for Your Visit: Small bowel obstruction. Attending Provider: Brittani Blankenship Primary Care Provider: Jaida Padron NP Consulting Providers: Carlos Sifuentes Instructions Additional Instructions / Restrictions: * Take note of your low residue diet for 2 weeks. Discharge Orders/Prescriptions Prescriptions: Continued nifedipine 30 mg tablet extended release 24hr 30 mg PO DAILY RF: 0 atenolol 25 mg tablet 25 mg PO BID RF: 0 lisinopril 10 mg tablet 10 mg PO DAILY RF: 0 aspirin 81 mg Tablet 81 mg PO DAILY RF: 0 sucralfate 1 gram Tablet 1 g PO 0700,1100,1600 Qty: 28 RF: 0 pantoprazole 40 mg Tablet,Delayed Release (Dr/Ec) 40 mg PO BID Qty: 60 RF: 2 nitroglycerin 0.4 mg Tablet, Sublingual 0.4 mg sublingual Q5M PRN (Reason: Cardiac/Chest Pain) Qty: 30 RF: 0 ferrous sulfate [FeroSul] 325 mg (65 mg iron) tablet 325 mg PO QODAY Qty: 30 RF: 2 ascorbic acid (vitamin C) 500 mg tablet 500 mg PO BID Qty: 60 RF: 0 Referrals / Follow Up: Jaida Padron NP, [employer]ARDING [employer]TERY OPERATOR-C [Primary Care Provider] - Within 2 Weeks Disposition Disposition (needs filled in before D/C Order can be placed): Home, Self Care Documented by User: Dr. Brittani Blankenship MD 02/12/22 14:59 Providers Date of Admission: 02/10/22 Reason For Visit: SMALL BOWEL OBSTRUCTION Medications at Discharge Home Medications aspirin 81 mg PO DAILY 01/30/22 atenolol 25 mg PO BID 01/30/22 lisinopril 10 mg PO DAILY 01/30/22 nifedipine 30 mg PO DAILY 01/30/22 ascorbic acid (vitamin C) 500 mg PO BID #60 tab 02/02/22 ferrous sulfate [FeroSul] 325 mg PO QODAY #30 tab 02/02/22 nitroglycerin 0.4 mg SUBLINGUAL Q5M PRN #30 tab 02/02/22 pantoprazole 40 mg PO BID #60 tab 02/02/22 sucralfate 1 g PO 0700,1100,1600 #28 tab 02/02/22 ABG / Lab / Microbiology Data Result Diagrams: 02/12/22 05:10 02/12/22 05:10 Discharge Plan Admission Admit Date/Time: 02/10/22 21:44 Primary Reason for Your Visit: Small bowel obstruction. Attending Provider: Brittani Blankenship Primary Care Provider: Jaida Padron BOARDING KENNEL OR CATTERY OPERATOR Consulting Providers: Carlos Sifuentes Instructions Additional Instructions / Restrictions: * Take note of your low residue diet for 2 weeks. Discharge Orders/Prescriptions Prescriptions: Continued nifedipine 30 mg tablet extended release 24hr 30 mg PO DAILY RF: 0 atenolol 25 mg tablet 25 mg PO BID RF: 0 lisinopril 10 mg tablet 10 mg PO DAILY RF: 0 aspirin 81 mg Tablet 81 mg PO DAILY RF: 0 sucralfate 1 gram Tablet 1 g PO 0700,1100,1600 Qty: 28 RF: 0 pantoprazole 40 mg Tablet,Delayed Release (Dr/Ec) 40 mg PO BID Qty: 60 RF: 2 nitroglycerin 0.4 mg Tablet, Sublingual 0.4 mg sublingual Q5M PRN (Reason: Cardiac/Chest Pain) Qty: 30 RF: 0 ferrous sulfate [FeroSul] 325 mg (65 mg iron) tablet 325 mg PO QODAY Qty: 30 RF: 2 ascorbic acid (vitamin C) 500 mg tablet 500 mg PO BID Qty: 60 RF: 0 Referrals / Follow Up: Jaida Padron BOARDING KENNEL OR CATTERY OPERATOR, BOARDING KENNEL OR CATTERY OPERATOR-C [Primary Care Provider] - Within 2 Weeks Disposition Disposition (needs filled in before D/C Order can be placed): Home, Self Care Charges/Coding Addendum Addendum: Patient seen by Jian Brown PA-C under my supervision Patient is a 72-year-old male with a past medical history as outlined who was admitted via the ED on 02/10/2022 with a complaint of progressively worsening sharp abdominal pain which was located just below the umbilicus. Pain was nonradiating and had started an hour after eating oatmeal. He had associated nausea but no vomiting. CT of the abdomen and pelvis showed mildly dilated gas and fluid filled loops of small bowel in the upper abdomen with normal caliber bowel distally representing a developing small bowel obstruction with no obvious transition point or free air. He was admitted and managed for small bowel obstruction. He was kept n.p.o. and hydrated with IV fluids. General surgery was consulted. He also had BRYSON on CKD stage IIIa with creatinine of 1.91 and a baseline from 1.3. He was hydrated with IV fluids and Bryson on CKD resolved. General surgery recommended conservative management. Abdominal pain gradually improved and he felt much better. He was started on transition diet and tolerated it. He remained stable and was discharged home on 02/12/2022 on transition diet; he is to follow up with his PCP and general surgery within 1-2 weeks. Patient seen and examined. He felt much better and had no active complaints. REview of systems is otherwise negative. Labs and vitals reviewed. HOme meds reviewed and reconciled. O/E: Const alert, oriented x3 and no apparent distress General Appearance: cooperative HEENT normocephalic, head/scalp atraumatic, hearing grossly normal bilaterally and moist oral mucous membranes Eyes PERRL, EOMs intact bilaterally and conjunctivae normal Neck no lymphadenopathy, supple and no JVD Resp normal respiratory effort and clear to auscultation bilaterally Cardio regular rate, regular rhythm, S1 normal heart sound, S2 normal heart sound and no murmurs GI normal to inspection, nondistended, normoactive bowel sounds and soft to palpation Extremity normal to inspection, full ROM and no clubbing, cyanosis or edema Skin no rashes or lesions noted Neuro oriented x3, CN's II-XII intact bilaterally and moves all extremities Sensorium / Orientation: awake and alert Psych affect normal Plan is for discharge home today. Rest as per Jian Brown PA-C's note, which I have reviewed and endorsed. Total time I spent on care of patient today: 25 mins, with Jian Brown PA-C spending 20 mins, making a total of 45 mins. Visit Charges Inpatient E&M: 71667 Disch Hosp
[2022-02-12 13:54] VITALS: BP 158/77; PULSE 59; RESP 18; TEMP 37.2; O2SAT 97
== END 2022-02-12 14:32 | disposition home or self-care (01) | DRG 388 ==
LOC: ED 21:36 → MS3 22:27
PROVIDERS: Physician Assistant; Admitting Provider Hospitalist; Emergency Provider Emergency Medicine; PCP Nurse Practitioner Family; Visit Provider Student in an Organized Health Care Education/Training Program
DX: K56.600 Partial intestinal obstruction, unspecified as to cause (principal); N17.9 Acute kidney failure, unspecified; I48.0 Paroxysmal atrial fibrillation; N18.31 Chronic kidney disease, stage 3a; I12.9 Hypertensive chronic kidney disease with stage 1 through stage 4 chronic kidney disease, or unspecified chronic kidney disease; I25.10 Atherosclerotic heart disease of native coronary artery without angina pectoris; I25.2 Old myocardial infarction; D64.9 Anemia, unspecified; K26.9 Duodenal ulcer, unspecified as acute or chronic, without hemorrhage or perforation; K25.9 Gastric ulcer, unspecified as acute or chronic, without hemorrhage or perforation; Z90.49 Acquired absence of other specified parts of digestive tract; Z95.1 Presence of aortocoronary bypass graft; Z79.82 Long term (current) use of aspirin; Z79.899 Other long term (current) drug therapy; Z87.19 Personal history of other diseases of the digestive system
CPT/HCPCS: 36415; 74018; 74176; 74250; 80048; 80053; 83690; 85025; 96361; 96365; 96366; 96375; 96376; 97802; 99221; 99285; J7030; A4216; G0378; J2405

== ENCOUNTER 2022-07-15 03:13 | Observation (INO) | payer MEDICARE, SELFPAY ==
[2022-07-15] VITALS (8 sets, daily range): BP systolic 147–196; BP diastolic 71–92; PULSE 50–64; RESP 14–18; TEMP 36.3–36.7; O2SAT 95–99; BMI 23.2
--- NOTE | 2022-07-15 03:27 | CT_ITS ---
ACR Level 3 findings have been noted. An addendum which confirms receipt of the report will follow. STUDY: CT ABDOMEN AND PELVIS WITHOUT CONTRAST REASON FOR EXAM: Male, 72 years old. Right upper quadrant and mid abdominal pain. A. fib coronary artery disease hypertension. TECHNIQUE: Transaxial images were obtained from the dome of the diaphragm to the symphysis pubis without oral contrast, and without intravenous contrast. Sagittal and coronal images were reconstructed. Individualized dose optimization techniques were used for this CT. COMPARISON: 02/10/2022 CT abdomen pelvis. FINDINGS: Partially visualized lower chest: No acute findings. Hyperinflated lungs with mild subpleural interstitial prominence, calcified left hilar lymph nodes, CABG, partially visible Liver: No concerning lesions. Gallbladder and biliary tree: Small gallstones layer in the gallbladder. Gallbladder distended but with no adjacent inflammation. No biliary ductal dilation. Pancreas: No pancreatic lesions or inflammation. Spleen: Normal size. 2.9 cm partially calcified lesion medial spleen unchanged. Adrenal glands: No concerning masses. Kidneys and ureters: No hydronephrosis or renal stones. No concerning masses. No ureteral dilation. Bowel: Status post appendectomy and right colectomy. Ileocolic anastomosis anterior right midabdomen. Progressive dilation of small bowel loops with air-fluid levels, abruptly transitioning to decompressed ileum in the anterior lower abdomen just to the left of midline. Sigmoid colon diverticulosis, no diverticulitis. No inflammation of the bowel. No wall thickening or pneumatosis. Urinary bladder: Nondistended. No apparent stones or filling defects. Reproductive:Normal size prostate. Vascular: No abdominal aortic aneurysm. Moderate calcific atherosclerosis. Retroperitoneal and peritoneal spaces: No ascites or free air. No retroperitoneal lesions. Osseous: No acute osseous abnormality. Mild right scoliosis centered at L3. Degenerative changes similar to prior. Abdominal and pelvic wall: No concerning findings. Any findings described in the findings sections and not included in the impression are incidental and do not require imaging follow-up. CT/Abdomen/Pelvis without Cont IMPRESSION: Small bowel obstruction. Abrupt transition point in the anterior lower abdomen just to the left of midline most likely an adhesion. No other acute finding. Cholelithiasis and colonic diverticulosis. Atherosclerosis, hyperinflated lungs partially visible compatible with COPD. 2.9 cm calcified lesion medial spleen, likely benign, no follow-up is necessary. Electronically Signed: Enoch Cabral MD at 4:58 EDT ,
--- NOTE | 2022-07-15 03:29 | EX.ED.DYSGE1 ---
HPI History of Present Illness Chief Complaint: Abd Pain Informant: patient Onset/Context/Timing Onset: Yesterday Context: Gradual Onset Timing: Waxes and wanes Current Severity: Moderate Maximum Severity: Severe Narrative Narrative: Patient presents with lower abdominal pain that started at 8 PM last evening. He states its in the area just below his bellybutton to the right lower quadrant. He had a bowel movement 2 hours ago that was normal. He states 2 days ago he had a hard firm stool that was black in color. He has had no rectal bleeding. He denies fever or chills. He had some nausea this evening but no vomiting. He does have history of a bleeding ulcer and had a partial bowel resection in the past as well. [facility] Medical History Atrial fibrillation Chest pain Coronary artery disease Hypertension Kidney disease Myocardial infarct Home Medications aspirin 81 mg tablet 81 mg PO DAILY heart 01/30/22 [History Last Taken 01/29/22] atenolol 25 mg tablet 25 mg PO BID blood pressure 01/30/22 [History Last Taken 01/29/22] lisinopril 10 mg tablet 10 mg PO DAILY blood pressure 01/30/22 [History Last Taken 01/29/22] nifedipine 30 mg tablet,extended release 24 hr 30 mg PO DAILY heart 01/30/22 [History Last Taken 01/29/22] ascorbic acid (vitamin C) 500 mg tablet 500 mg PO BID #60 tabs 02/02/22 [Rx Last Taken Unknown] ferrous sulfate 325 mg (65 mg iron) tablet (FeroSul) 325 mg PO QODAY #30 tabs 02/02/22 [Rx Last Taken Unknown] nitroglycerin 0.4 mg sublingual tablet 0.4 mg sublingual Q5M PRN Cardiac/Chest Pain #30 tabs 02/02/22 [Rx Last Taken Unknown] pantoprazole 40 mg tablet,delayed release 40 mg PO BID #60 tabs 02/02/22 [Rx Last Taken Unknown] sucralfate 1 gram tablet 1 g PO 0700,1100,1600 #28 tabs 02/02/22 [Rx Last Taken Unknown] Allergy/AdvReac Type Severity Reaction Status Date / Time prochlorperazine Allergy Anaphylaxis Verified 07/15/22 03:17 [From Compazine] Iodinated Contrast Media AdvReac Mild Other Verified 07/15/22 03:34 [iv contrast] Family History Other CVA (cerebral vascular accident) Myocardial infarction Surgical History History of bowel resection History of coronary artery stent placement Hx of CABG Social History household members: none housing: house pets and animals: Yes pets and animals: cat(s) Smoking Status: Never smoker substance use type: does not use ROS ROS ED Constitutional Constitutional ED: Denies chills or fever(s) Eyes Eyes: Denies change in vision or discharge from eye(s) ENT ENT ED: Denies discharge from eye(s), rhinorrhea or sore throat Cardiovascular Cardiovascular: Denies chest pain or palpitations Respiratory/Chest Respiratory/Chest: Denies cough or dyspnea Gastrointestinal Gastrointestinal: Reports abdominal pain and nausea; Denies diarrhea or vomiting Genitourinary Genitourinary ED: Denies difficulty urinating or dysuria Musculoskeletal Musculoskeletal: Denies back pain or extremity pain Integumentary Denies Abrasions or rash Neurologic Neurologic: Denies headache(s) or weakness Allergic/Immunologic Allergic/Immunologic ED: Denies lip swelling or urticaria EXAM Physical Exam Const Vital Signs: 07/15/22 03:15 07/15/22 05:42 Temperature 97.3 F L Temperature Source Temporal Pulse Rate 59 L 64 Respiratory Rate 16 16 Blood Pressure 196/89 H 157/78 H Blood Pressure Mean 124 104 Pulse Ox 98 98 Oxygen Delivery Method Room Air Room Air Positive well nourished and well developed General Appearance ED: well developed HEENT Reports normocephalic and head/scalp atraumatic Eyes PERRL and EOMs intact bilaterally Neck supple Chest Wall inspection of chest normal and palpation of chest normal Resp normal respiratory effort and clear to auscultation bilaterally Cardio regular rate and regular rhythm GI GI Narrative: Periumbilical and right lower quadrant tenderness to palpation. No guarding or rebound at this time. Hypoactive bowel sounds noted. Palpation: soft Extremity normal to inspection Neuro oriented x3 and no sensory deficits noted Sensorium / Orientation: alert Motor Exam: strength 5/5 throughout Psych mental status grossly normal Skin no rashes or lesions noted MDM MDM MDM Narrative Medical decision making narrative: Patient was given morphine and Zofran for pain and nausea. IV fluids given. Lab work obtained along with a CT scan of the abdomen and pelvis. Patient states he was told not to have contrast because of renal failure. Lab Data Attestation: I reviewed the patient's lab results. Labs: Laboratory Results - last 24 hr 07/15/22 07/15/22 07/15/22 03:42 03:42 04:35 WBC 10.1 RBC 5.16 Hgb 15.4 Hct 46.4 MCV 89.9 MCH 29.8 MCHC 33.2 RDW Std Deviation 49.4 H RDW Coeff of Navneet 14.8 H Plt Count 201 MPV 9.3 Immature Gran % (Auto) 0.200 Neut % (Auto) 79.1 H Lymph % (Auto) 9.9 L [place] % (Auto) 8.0 Eos % (Auto) 2.3 Baso % (Auto) 0.5 Absolute Neuts (auto) 8.0 H Absolute Lymphs (auto) 1.00 Nucleated RBC % 0 Sodium 137 Potassium 4.2 Chloride 110 H Carbon Dioxide 18.0 L Anion Gap 9 BUN 35 H Creatinine 1.96 H Estim Creat Clear Calc 34.66 Est GFR (MDRD) Af Amer 43 L Est GFR (MDRD) Non-Af 36 L BUN/Creatinine Ratio 17.9 Glucose 105 Calcium 9.2 Total Bilirubin 0.60 Direct Bilirubin 0.12 AST 34 ALT 24 Alkaline Phosphatase 94 Total Protein 7.5 Albumin 2.9 L Globulin 4.6 H Lipase 381 Urine Color Yellow Urine Clarity Clear Urine pH 5.0 Ur Specific [place] 1.020 Urine Protein 15 H Urine Glucose (UA) Normal Urine Ketones 5 H Urine Occult Blood 10 H Urine Nitrite Negative Urine Bilirubin Negative Urine Urobilinogen Normal Ur Leukocyte Esterase 25 H Urine RBC 0-5 SEEN Urine WBC 0-5 SEEN Ur Squamous Epith Cells 0-5 SEEN Urine Bacteria 1+ Hyaline Casts 10-25 SEEN Urine Mucus 1+ Radiography Diagnostic Testing: Clinical Impression(s) from Imaging Studies Abdomen/Pelvis CT 07/15/22 03:27 IMPRESSION: Small bowel obstruction. Abrupt transition point in the anterior lower abdomen just to the left of midline most likely an adhesion. No other acute finding. Cholelithiasis and colonic diverticulosis. Atherosclerosis, hyperinflated lungs partially visible compatible with COPD. 2.9 cm calcified lesion medial spleen, likely benign, no follow-up is necessary. Electronically Signed: Enoch Cabral MD at 4:58 EDT Reading Location ID and State: [address] [place] [address] Tel , Service support , ADDENDUM: 07/15/22 0512 IMPRESSION: Small bowel obstruction. Abrupt transition point in the anterior lower abdomen just to the left of midline most likely an adhesion. No other acute finding. Cholelithiasis and colonic diverticulosis. Atherosclerosis, hyperinflated lungs partially visible compatible with COPD. 2.9 cm calcified lesion medial spleen, likely benign, no follow-up is necessary. N.B. : MARY jane, confirmed on 07/15/2022 05:05:30 (ET) that the healthcare facility has received the radiology report. Electronically Signed: Enoch Cabral MD at 4:58 EDT Reading Location ID and State: [address] [place] [address] Tel , Service support , Treatment and Re-Evaluation Narrative: CBC reveals a white count of 10.1 with 75 9% neutrophils. Chemistry studies significant for BUN of 35 and a creatinine of 1.96. LFTs unremarkable. Lipase is 381. Urinalysis reveals hyaline casts but no significant infection. CT scan of the abdomen pelvis without contrast reveals evidence of a small bowel obstruction. There is an abrupt transition point in the anterior lower abdomen just to the left of the midline most likely secondary to an adhesion. These test findings were discussed with patient as well as Dr. Maens. She requested the patient undergo another CT scan with p.o. contrast so she can definitively determine the transition point. After his CT is performed he has had an NG tube placed to Dr. Means will evaluate him at that time. Discharge Plan Triage Chief Complaint: Abd Pain ED Provider: Tara Guillermo Dx/Rx/DC Orders Clinical Impression: Small bowel obstruction Prescriptions: No Action nifedipine 30 mg tablet extended release 24hr 30 mg PO DAILY Label Comments: take 1 tablet by mouth once daily atenolol 25 mg tablet 25 mg PO BID Label Comments: take 1 tablet by mouth three times a day lisinopril 10 mg tablet 10 mg PO DAILY Label Comments: take 1 tablet by mouth once daily aspirin 81 mg Tablet 81 mg PO DAILY sucralfate 1 gram Tablet 1 g PO 0700,1100,1600 Qty: 28 0RF Rx Instructions: Total duration 2 weeks pantoprazole 40 mg Tablet,Delayed Release (Dr/Ec) 40 mg PO BID Qty: 60 2RF Rx Instructions: 40 mg twice daily for 8 weeks and then 40 mg once daily to continue nitroglycerin 0.4 mg Tablet, Sublingual 0.4 mg sublingual Q5M PRN (Reason: Cardiac/Chest Pain) Qty: 30 0RF ferrous sulfate [FeroSul] 325 mg (65 mg iron) tablet 325 mg PO QODAY Qty: 30 2RF ascorbic acid (vitamin C) 500 mg tablet 500 mg PO BID Qty: 60 0RF Primary Care Provider: Jaida Padron NP Referrals: Jaida Padron NP, [employer]ACH[employer] ENGINEER-[employer] [Primary Care Provider] - Disposition Disposition: Acute Care Hospital [facility]
[2022-07-15] MEDS: Ondansetron 4 MG/2 ML Vial IV ×3 (03:34→10:12)
[2022-07-15] MEDS: Morphine 4 MG/ML Syringe IV ×2 (03:36→05:18)
[2022-07-15] MEDS: 0.9% Normal Saline 1,000 ML 150 ML IV ×2 (03:37→05:22)
[2022-07-15 03:50] LABS: Basophil# 0.05 X10^3/uL; Basophil% 0.5 % (0-1); Eosinophil# 0.23 X10^3/uL; Eosinophils% 2.3 % (0-5); Hematocrit 46.4 % (40-54); Hemoglobin 15.4 g/dL (13.0-16.5); Lymphocyte % 9.9 % (19-41); Mean Corp Hgb Conc 33.2 g/dL (32-36); Mean Corpuscular Hgb 29.8 pg (27.0-32.0); Mean Corpuscular Volume 89.9 fL (80-94); Mean Platelet Vol. 9.3 fl (6.2-12.0); Monocyte# 0.81 X10^3/uL; NRBC Flagged by Analyzer 0 % (0-5); Neutrophil # 8.01 X10^3/uL (2.7-7.7); Neutrophil % 79.1 % (47-70); Platelet Count 201 K/mm3 (150-450); RBC Distribution Width CV 14.8 % (11.6-14.6); RBC Distribution Width SD 49.4 fl (35.1-43.9); Red Blood Count 5.16 M/mm3 (4.6-6.2); White Blood Count 10.1 K/mm3 (4.4-11.0)
[2022-07-15 04:10] LABS: AST(SGOT) 34 U/L (15-37); Alanine Aminotransfer ALT/SGPT 24 U/L (16-61); Albumin, Serum 2.9 g/dL (3.2-5.0); Alkaline Phosphatase 94 U/L (45-117); Anion Gap 9 (5-15); BUN 35 mg/dL (7-18); BUN/Creat Ratio 17.9 RATIO (10-20); Bilirubin, Direct 0.12 mg/dL (0.00-0.30); Calcium,Total 9.2 mg/dL (8.5-10.1); Chloride 110 mmol/L (98-107); Creatinine, Serum 1.96 mg/dL (0.70-1.30); EST Glomerular Filtration Rate 36 mL/min (>60); Est Glom Filt Rate - Afr Amer 43 mL/min (>60); Estimated Creatinine Clearance 34.66 ml/min; Globulin 4.6 g/dL (2.2-4.2); Glucose 105 mg/dL (74-106); Lipase 381 U/L (73-393); Potassium 4.2 mmol/L (3.5-5.1); Protein, Total 7.5 g/dL (6.4-8.2); Sodium Level 137 mmol/L (136-145)
[2022-07-15 04:57] LABS: Color, Urine Yellow (Yellow); Glucose, Dipstick Normal (Normal); Ketone-Dipstick 5 mg/dl (Negative); Leukocyte Esterase-Dipstick 25 /ul (Negative); Nitrite-Dipstick Negative (Negative); Occult Blood-Urine 10 /ul (Negative); Protein-Dipstick 15 mg/dl (Negative); Urine Bilirubin Dipstick Negative (Negative); Urine Clarity Clear (Clear); Urine Urobilinogen Normal (Normal)
[2022-07-15 05:06] LABS: Bacteria 1+ /hpf (None Seen); Hyaline Cast 10-25 SEEN /lpf (0-5); Mucous, Urine 1+ /hpf (<or=2+); Red Blood Cells-Urine 0-5 SEEN /hpf (0-5); Squamous Epithelial Cells - UA 0-5 SEEN /hpf (0-5); White Blood Cells 0-5 SEEN /hpf (0-5)
--- NOTE | 2022-07-15 05:19 | CT_ITS ---
STUDY: CT ABDOMEN AND PELVIS WITHOUT CONTRAST REASON FOR EXAM: Male, 72 years old. Follow-up bowel obstruction. TECHNIQUE: Transaxial images were obtained from the dome of the diaphragm to the symphysis pubis with oral contrast, and without intravenous contrast. Sagittal and coronal images were reconstructed. Individualized dose optimization techniques were used for this CT. COMPARISON: CT abdomen pelvis 5:45 AM same date. FINDINGS: Partially visualized lower chest: No acute findings. Hyperinflated lungs with mild subpleural interstitial prominence, calcified left hilar lymph nodes, CABG, partially visible Liver: No concerning lesions. Gallbladder and biliary tree: Small gallstones layer in the gallbladder. Gallbladder distended but with no adjacent inflammation. No biliary ductal dilation. Pancreas: No pancreatic lesions or inflammation. Spleen: Normal size. 2.9 cm partially calcified lesion medial spleen unchanged. Adrenal glands: No concerning masses. Kidneys and ureters: No hydronephrosis or renal stones. No concerning masses. No ureteral dilation. Bowel: Status post appendectomy and right colectomy. Ileocolic anastomosis anterior right midabdomen. Progressive dilation of small bowel loops with air-fluid levels, abruptly transitioning to decompressed ileum in the anterior lower abdomen just to the left of midline, not significantly changed. Sigmoid colon diverticulosis, no diverticulitis. No inflammation of the bowel. No wall thickening or pneumatosis. The administered oral contrast has not yet reached the transition point. Urinary bladder: Nondistended. No apparent stones or filling defects. Reproductive:Normal size prostate. Vascular: No abdominal aortic aneurysm. Moderate calcific atherosclerosis. Retroperitoneal and peritoneal spaces: No ascites or free air. No retroperitoneal lesions. Osseous: No acute osseous abnormality. Mild right scoliosis centered at L3. Degenerative changes similar to prior. Abdominal and pelvic wall: No concerning findings. Any findings described in the findings sections and not included in the impression are incidental and do not require imaging follow-up. CT/Abdomen/Pel W ORAL Cont Only IMPRESSION: Small bowel obstruction, not significantly changed. Administered oral contrast is approaching but has not yet passed through the transition point. Therefore this is a partial obstruction. Electronically Signed: Enoch Cabral MD at 7:35 EDT Reading Location ID and State: [facility] / [place] Tel , Service support ,
--- NOTE | 2022-07-15 07:21 | RAD_ITS ---
STUDY: X-RAY - ABDOMEN/PELVIS REASON FOR EXAM: Male, 72 years old. NG Insertion TECHNIQUE: Single AP view of the abdomen / pelvis. COMPARISON: CT of abdomen and pelvis dated July 15, 2022 FINDINGS: A feeding tube is present in the proximal stomach. Reidentification of moderately dilated small bowel loops with air-fluid levels due to small bowel obstruction. No colonic diverticula are present. Normal soft tissue structures. There are diffuse degenerative changes of the visualized lumbar spine. RAD/Abdomen Single View (Portable) IMPRESSION: Small bowel obstruction Electronically Signed: Anshu Carrillo MD at 13:48 EDT ,
--- NOTE | 2022-07-15 08:01 | PCM.HP.STD ---
[facility] - General General Date of Admission: 07/15/22 Date of Service: 07/15/22 Chief Complaint: abdominal pain HPI Narrative [place] CLIFFORD, is a 72 M who presents with abdominal pain. He has had this for about two days, however, the pain was worst beginning about 8 pm last night. He also noted diarrhea two days ago. He describes the pain has being in the lower abdomen, but it radiates to the RLQ and then the upper abdomen. It waxes and wanes, but is constant with a severe ache, occasional sharp pains. He feels semi-bloated. He states that he has no appetite. He denies nausea/emesis. He denies fevers. He last passed flatus yesterday and he states that he had a hard black stool very early this morning. He has known PUD. His past medical/surgical is complicated. He had undergone a partial right hemicolectomy and appendectomy about 40 years ago for what sounds like terminal ileitis/Crohn's disease (not being treated for such at this point in time. He was admitted to the hospital in January of this year and underwent upper and lower endosopy by Dr. Baumann. He was found to have multiple ulcers of the stomach and duodenum. He underwent dilatation of a Schatzki's ring. On colonoscopy, he was found to have an ileocecal anastomosis that Dr. Baumann also dilated due to narrowing. He was also noted to have possible diverticular bleeding. Pathology of the above is unavailable due to the limitations of this EHR. He presented with partial SBO after discharge from above which resolved with NG tube decompression and IV hydration. [facility] Medical History Atrial fibrillation Chest pain Coronary artery disease Hypertension Kidney disease Myocardial infarct Home Medications aspirin 81 mg tablet 81 mg PO DAILY heart 01/30/22 [History Last Taken 01/29/22] atenolol 25 mg tablet 25 mg PO BID blood pressure 01/30/22 [History Last Taken 01/29/22] lisinopril 10 mg tablet 10 mg PO DAILY blood pressure 01/30/22 [History Last Taken 01/29/22] nifedipine 30 mg tablet,extended release 24 hr 30 mg PO DAILY heart 01/30/22 [History Last Taken 01/29/22] ascorbic acid (vitamin C) 500 mg tablet 500 mg PO BID #60 tabs 02/02/22 [Rx Last Taken Unknown] ferrous sulfate 325 mg (65 mg iron) tablet (FeroSul) 325 mg PO QODAY #30 tabs 02/02/22 [Rx Last Taken Unknown] nitroglycerin 0.4 mg sublingual tablet 0.4 mg sublingual Q5M PRN Cardiac/Chest Pain #30 tabs 02/02/22 [Rx Last Taken Unknown] pantoprazole 40 mg tablet,delayed release 40 mg PO BID #60 tabs 02/02/22 [Rx Last Taken Unknown] sucralfate 1 gram tablet 1 g PO 0700,1100,1600 #28 tabs 02/02/22 [Rx Last Taken Unknown] Allergy/AdvReac Type Severity Reaction Status Date / Time prochlorperazine Allergy Anaphylaxis Verified 07/15/22 03:17 [From Compazine] Iodinated Contrast Media AdvReac Mild Other Verified 07/15/22 03:34 [iv contrast] Family History Other CVA (cerebral vascular accident) Myocardial infarction Surgical History History of bowel resection History of coronary artery stent placement Hx of CABG Social History household members: none housing: house pets and animals: Yes pets and animals: cat(s) Smoking Status: Never smoker substance use type: does not use Vital Signs Vital Signs Vital Signs: 07/15/22 03:15 07/15/22 05:42 07/15/22 06:57 Temperature 97.3 F L Temperature Source Temporal Pulse Rate 59 L 64 61 Respiratory Rate 16 16 Blood Pressure 196/89 H 157/78 H 147/80 H Blood Pressure Mean 124 104 102 Pulse Ox 98 98 95 Oxygen Delivery Method Room Air Room Air Room Air 07/15/22 07:21 Temperature Temperature Source Pulse Rate 50 L Respiratory Rate 14 Blood Pressure 164/76 H Blood Pressure Mean 105 Pulse Ox 98 Oxygen Delivery Method Room Air Weight Weight: 73.4 kg Body Mass Index (BMI) 23.2 Physical Exam Const oriented x3 and no apparent distress Resp normal respiratory effort Cardio regular rate GI GI Narrative: soft but tender throughout no peritoneal signs, patient appears comfortable (not in extremis) with exam well healed transverse (inferior to umbilical dimple) incisional scar patient points to pain from lower abdomen to RLQ to upper abdomen Extremity no clubbing, cyanosis or edema Results Medical Records Data Attestation: I reviewed the patient's medical records Lab / Micro Data Attestation: I reviewed the patient's lab results. Result Diagrams: 07/15/22 03:42 07/15/22 03:42 Labs: Laboratory Results - last 24 hr 07/15/22 03:42: WBC 10.1, RBC 5.16, Hgb 15.4, Hct 46.4, MCV 89.9, MCH 29.8, MCHC 33.2, RDW Std Deviation 49.4 H, RDW Coeff of Navneet 14.8 H, Plt Count 201, MPV 9.3, Immature Gran % (Auto) 0.200, Neut % (Auto) 79.1 H, Lymph % (Auto) 9.9 L, [place] % (Auto) 8.0, Eos % (Auto) 2.3, Baso % (Auto) 0.5, Absolute Neuts (auto) 8.0 H, Absolute Lymphs (auto) 1.00, Nucleated RBC % 0 07/15/22 03:42: Sodium 137, Potassium 4.2, Chloride 110 H, Carbon Dioxide 18.0 L, Anion Gap 9, BUN 35 H, Creatinine 1.96 H, Estim Creat Clear Calc 34.66, Est GFR (MDRD) Af Amer 43 L, Est GFR (MDRD) Non-Af 36 L, BUN/Creatinine Ratio 17.9, Glucose 105, Calcium 9.2, Total Bilirubin 0.60, Direct Bilirubin 0.12, AST 34, ALT 24, Alkaline Phosphatase 94, Total Protein 7.5, Albumin 2.9 L, Globulin 4.6 H, Lipase 381 07/15/22 04:35: Urine Color Yellow, Urine Clarity Clear, Urine pH 5.0, Ur Specific [place] 1.020, Urine Protein 15 H, Urine Glucose (UA) Normal, Urine Ketones 5 H, Urine Occult Blood 10 H, Urine Nitrite Negative, Urine Bilirubin Negative, Urine Urobilinogen Normal, Ur Leukocyte Esterase 25 H, Urine RBC 0-5 SEEN, Urine WBC 0-5 SEEN, Ur Squamous Epith Cells 0-5 SEEN, Urine Bacteria 1+, Hyaline Casts 10-25 SEEN, Urine Mucus 1+ Radiology Impression Abdomen/Pelvis CT 07/15/22 03:27 IMPRESSION: Small bowel obstruction. Abrupt transition point in the anterior lower abdomen just to the left of midline most likely an adhesion. No other acute finding. Cholelithiasis and colonic diverticulosis. Atherosclerosis, hyperinflated lungs partially visible compatible with COPD. 2.9 cm calcified lesion medial spleen, likely benign, no follow-up is necessary. Electronically Signed: Enoch Cabral MD at 4:58 EDT Reading Location ID and State: [address] [place] [address] Tel , Service support , ADDENDUM: 07/15/22 0512 IMPRESSION: Small bowel obstruction. Abrupt transition point in the anterior lower abdomen just to the left of midline most likely an adhesion. No other acute finding. Cholelithiasis and colonic diverticulosis. Atherosclerosis, hyperinflated lungs partially visible compatible with COPD. 2.9 cm calcified lesion medial spleen, likely benign, no follow-up is necessary. N.B. : lucinda RN, confirmed on 07/15/2022 05:05:30 (ET) that the healthcare facility has received the radiology report. Electronically Signed: Enoch Cabral MD at 4:58 EDT Reading Location ID and State: [address] [place] [address] Tel , Service support , Abdomen CT 07/15/22 05:19 IMPRESSION: Small bowel obstruction, not significantly changed. Administered oral contrast is approaching but has not yet passed through the transition point. Therefore this is a partial obstruction. Electronically Signed: Enoch Cabral MD at 7:35 EDT Reading Location ID and State: [facility] / [place] Tel , Service support , Assessment & Plan Assessment/Plan (1) Small bowel obstruction: PLAN: I have reviewed both CT scans Suspect partial SBO due to adhesions Will plan IV hydration and NG tube decompression Will also start Protonix, given patient's past history (see HPI) Will also consult Internal Medicine for medical management
--- NOTE | 2022-07-15 08:08 | NURSING ---
MED SURG AYALA BOWEL OBSTRUCTION
[2022-07-15] MEDS: Oxymetazoline 0.05% 1 SPRAY SPRAY.BTL 2 SPRAY NASAL ×2 (08:09→12:02)
[2022-07-15] MEDS: HYDROmorphone 0.5 MG/0.5 ML SYRINGE IV ×4 (08:09→20:36)
[2022-07-15] MEDS: Lidocaine 4% 50 ML Bottle TOPICAL (08:11)
--- NOTE | 2022-07-15 08:53 | ED.RN ---
NG TUBE PLACED TO RT ROCIO PER 2 ATTEMPTS. PLACEMENT VERIFIED, CONTENTS DRAINING. PT REQUESTS TUBE TO BE PULLED. ENCOURAGED TO LEAVE. PT STATES NO REMOVE IT AND HAVE THE SURGEON DO SOMETHING ELSE
[2022-07-15] MEDS: 0.9% Saline Lock 10 ML Syringe IV ×4 (09:37→20:36)
[2022-07-15] MEDS: Lactated Ringers 1,000 ML 125 ML IV ×2 (09:38→17:36)
--- NOTE | 2022-07-15 16:44 | PN.HOSP_ITS ---
Subjective Subjective Patient was seen and examined today, he was seen in the emergency room today with complaints of abdominal pain, he was found to have a partial small bowel obstruction on CAT scan. Hospitalist service was consulted for medical management, I talked with Dr. Means concerning his care, patient is currently on aspirin, atenolol, lisinopril, and nifedipine. Patient has a remote history of coronary artery disease. Objective Data Objective Data Vital Signs: Vital Signs Temp Pulse Resp BP Pulse Ox O2 Del Method 98.1 F 55 L 18 147/92 H 99 Room Air 07/15/22 09:19 07/15/22 09:19 07/15/22 09:19 07/15/22 09:19 07/15/22 09:19 07/15/22 14:15 Oxygen Delivery Method Room Air Weight: 73.5 kg Body Mass Index (BMI) 23.2 Intake & Output: Intake and Output for Last 24 Hours 07/13/22 07/14/22 07/15/22 23:59 23:59 23:59 Intake Total 1372.5 / 1372.5 Balance 1372.5 / 1372.5 Lab / Micro Data Result Diagrams: 07/15/22 03:42 07/15/22 03:42 Labs: Laboratory Results - last 24 hr 07/15/22 03:42: WBC 10.1, RBC 5.16, Hgb 15.4, Hct 46.4, MCV 89.9, MCH 29.8, MCHC 33.2, RDW Std Deviation 49.4 H, RDW Coeff of [place] 14.8 H, Plt Count 201, MPV 9.3, Immature Gran % (Auto) 0.200, Neut % (Auto) 79.1 H, Lymph % (Auto) 9.9 L, [place] % (Auto) 8.0, Eos % (Auto) 2.3, Baso % (Auto) 0.5, Absolute Neuts (auto) 8.0 H, Absolute Lymphs (auto) 1.00, Nucleated RBC % 0 07/15/22 03:42: Sodium 137, Potassium 4.2, Chloride 110 H, Carbon Dioxide 18.0 L , Anion Gap 9, BUN 35 H, Creatinine 1.96 H, Estim Creat Clear Calc 34.66, Est GFR (MDRD) Af Amer 43 L, Est GFR (MDRD) Non-Af 36 L, BUN/Creatinine Ratio 17.9, Glucose 105, Calcium 9.2, Total Bilirubin 0.60, Direct Bilirubin 0.12, AST 34, ALT 24, Alkaline Phosphatase 94, Total Protein 7.5, Albumin 2.9 L, Globulin 4.6 H, Lipase 381 07/15/22 04:35: Urine Color Yellow, Urine Clarity Clear, Urine pH 5.0, Ur Specific [place] 1.020, Urine Protein 15 H, Urine Glucose (UA) Normal, Urine Ketones 5 H, Urine Occult Blood 10 H, Urine Nitrite Negative, Urine Bilirubin Negative, Urine Urobilinogen Normal, Ur Leukocyte Esterase 25 H, Urine RBC 0-5 SEEN, Urine WBC 0-5 SEEN, Ur Squamous Epith Cells 0-5 SEEN, Urine Bacteria 1+, Hyaline Casts 10-25 SEEN, Urine Mucus 1+ Radiography Diagnostic Testing: Radiology Impression Abdomen/Pelvis CT 07/15/22 03:27 IMPRESSION: Small bowel obstruction. Abrupt transition point in the anterior lower abdomen just to the left of midline most likely an adhesion. No other acute finding. Cholelithiasis and colonic diverticulosis. Atherosclerosis, hyperinflated lungs partially visible compatible with COPD. 2.9 cm calcified lesion medial spleen, likely benign, no follow-up is necessary. Electronically Signed: Enoch Cabral MD at 4:58 EDT Reading Location ID and State: [address] [place] [address] Tel , Service support , ADDENDUM: 07/15/22 05 IMPRESSION: Small bowel obstruction. Abrupt transition point in the anterior lower abdomen just to the left of midline most likely an adhesion. No other acute finding. Cholelithiasis and colonic diverticulosis. Atherosclerosis, hyperinflated lungs partially visible compatible with COPD. 2.9 cm calcified lesion medial spleen, likely benign, no follow-up is necessary. N.B. : MARY jane, confirmed on 07/15/2022 05:05:30 (ET) that the healthcare facility has received the radiology report. Electronically Signed: Enoch Cabral MD at 4:58 EDT Reading Location ID and State: [facility] / [place] Tel , Service support , Abdomen CT 07/15/22 05:19 IMPRESSION: Small bowel obstruction, not significantly changed. Administered oral contrast is approaching but has not yet passed through the transition point. Therefore this is a partial obstruction. Electronically Signed: Enoch Cabral MD at 7:35 EDT , KUB X-Ray 07/15/22 07:21 IMPRESSION: Small bowel obstruction Electronically Signed: Anshu Carrillo MD at 13:48 EDT , Physical Exam Const alert, oriented x3, no apparent distress, average body habitus and healthy appearing General Appearance: cooperative, well kempt and well developed Orientation / Consciousness: awake, oriented to person, oriented to place and oriented to time HEENT normocephalic and moist oral mucous membranes Eyes PERRL, EOMs intact bilaterally and conjunctivae normal Neck supple, no JVD, thyroid normal and no carotid bruits General: trachea midline Resp normal respiratory effort, no retractions, no use of accessory muscles and clear to auscultation bilaterally Auscultation: Negative for rales, rhonchi or wheezes Cardio regular rate, regular rhythm, S1 normal heart sound, S2 normal heart sound, no murmurs, no rub and no gallops GI soft to palpation GI Narrative: Patient has mild abdominal distention, bowel sounds are present in all 4 quadrants, he has no rebound abdominal tenderness at this time Extremity no clubbing, cyanosis or edema Skin no rashes or lesions noted General Skin Exam: no breakdown Neuro oriented x3, CN's II-XII intact bilaterally, no focal motor deficits and no sensory deficits noted Sensorium / Orientation: awake and alert Speech: speech normal Psych affect normal Assessment & Plan Assessment/Plan (1) Hypertension: (2) Coronary artery disease: PLAN: Plan 1. Essential hypertension-I have elected to place the patient on enalapril IV, nifedipine and atenolol will be held at this time #2 coronary artery disease-patient's aspirin will be held at this time, his atenolol will also be held #3 partial small bowel obstruction-General surgery seeing him, he has an NG tube inserted at this time Charges/Coding Visit Charges Inpatient E&M: 89846 Subs Hosp L2
[2022-07-15] MEDS: Enalaprilat 1.25 MG/ML Vial IV (17:36)
[2022-07-16] MEDS: 0.9% Saline Lock 10 ML Syringe IV (00:02)
[2022-07-16] MEDS: Enalaprilat 1.25 MG/ML Vial IV (00:03)
[2022-07-16] MEDS: Lactated Ringers 1,000 ML 125 ML IV (00:23)
[2022-07-16 03:33] VITALS: BP 174/69; PULSE 52; RESP 18; TEMP 36.6; O2SAT 98
--- NOTE | 2022-07-16 05:25 | DCINST_ITS ---
Discharge Instructions Follow Up Care Test Results: Test results from this visit will be discussed in further detail at your follow- up appointment, if applicable. Discharge Plan Admission Admit Date/Time: 07/15/22 08:12 Primary Reason for Your Visit: bowel obstruction Attending Provider: Kanchan Means Primary Care Provider: Jaida Padron NP Consulting Providers: Osei Stokes Additional Instructions / Restrictions: Stay on liquid diet for 1-2 days and advance slowly to regular diet at home. Follow up with your PCP. Discharge Orders/Prescriptions Prescriptions: No Action nifedipine 30 mg tablet extended release 24hr 30 mg PO DAILY Label Comments: take 1 tablet by mouth once daily atenolol 25 mg tablet 25 mg PO BID Label Comments: take 1 tablet by mouth three times a day lisinopril 10 mg tablet 10 mg PO DAILY Label Comments: take 1 tablet by mouth once daily aspirin 81 mg Tablet 81 mg PO DAILY nitroglycerin 0.4 mg Tablet, Sublingual 0.4 mg sublingual Q5M PRN (Reason: Cardiac/Chest Pain) Qty: 30 0RF Referrals / Follow Up: Jaida Padron NP, PROJECT MANAGEMENT SPECIALIST-[facility] [Primary Care Provider] - Disposition Discharge Orders: Discharge Patient (Routine); Ordered 07/16/22 Ordered By: Dr. Kanchan Means
[2022-07-16 08:35] VITALS: BP 186/80; PULSE 56; RESP 16; TEMP 36.4; O2SAT 99
[2022-07-16] MEDS: Atenolol 25 MG Tablet PO (08:36)
[2022-07-16] MEDS: Lisinopril 10 MG Tablet PO (08:37)
[2022-07-16] MEDS: NIFEdipine 30 MG Tablet PO (08:37)
--- NOTE | 2022-07-16 09:58 | CASEMGMT ---
MARY AVILA Assessment: Face to Face with pt for initial transition planning/care coordination assessment. MARY AVILA introduced self and role at [facility], pt voices understanding and consents to assessment. Pt is A/O x4 and answers all questions appropriately at this time. Care providers, pharmacy, and demographics verified/updated. Admitting Dx: bowel obstruction PCP:Pt does not have PCP. He states Jaida Padron [employer] SUPERVISOR gave him a list and he has 3 in mind, he has just not set it up yet. Pt denies needing any assistance with this. Specialists: Jaida Padron NP cardio [facility]erred [facility]acy[facility] Insurance: [employer] [facility] Prescription Benefit: yes LW/HPOA: Pt denies having a LW/DPOA and denies need for info regarding AD. LNOK: Cecilia Sigala, Living Arrangements: Pt lives with in a two story house with 6 steps to enter with a rail. Pt reports he is I in ADL's and denies concerns at home. Transportation: Pt drives self and denies concerns with transportation. DME/HHC/SNF: Pt has a cane that he uses when he shops, otherwise does not use AD. Pt has had HHC in the past but is unsure the name of the agency. Pt has been at [facility] previously. Pt states no concerns with going home at time of dc. Pt states his strength is good and denies homegoing needs. CM to follow. Advised pt to ask CM if any further question/concerns/needs arise, voices understanding. Pt Goal: Home Plan: Home
[2022-07-16 10:20] VITALS: BP 169/81; PULSE 55
--- NOTE | 2022-07-16 10:30 | PHA.DC.MR ---
Pharmacy Service has performed discharge medication reconciliation for this patient. The patient's discharge medication list was reviewed for discrepancies and discrepancies were resolved. Home Medications aspirin 81 mg tablet 81 mg PO DAILY heart 01/30/22 atenolol 25 mg tablet 25 mg PO BID blood pressure 01/30/22 lisinopril 10 mg tablet 10 mg PO DAILY blood pressure 01/30/22 nifedipine 30 mg tablet,extended release 24 hr 30 mg PO DAILY heart 01/30/22 nitroglycerin 0.4 mg sublingual tablet 0.4 mg sublingual Q5M PRN Cardiac/Chest Pain #30 tabs 02/02/22
--- NOTE | 2022-07-16 11:07 | PN.HOSP_ITS ---
Subjective Subjective Patient denies any issues at this time. P.o. antihypertensives were reinitiated this morning as patient is now on a clear liquid diet. Bowel movement last night and today. Passing flatus. No abdominal pain nausea or vomiting. Sounds as if plan is for discharge later today. Objective Data Objective Data Vital Signs: Vital Signs Temp Pulse Resp BP Pulse Ox O2 Del Method 97.6 F L 55 L 16 169/81 H 99 Room Air 07/16/22 08:35 07/16/22 10:20 07/16/22 08:35 07/16/22 10:20 07/16/22 08:35 07/16/22 08:35 Oxygen Delivery Method Room Air Weight: 73.5 kg Body Mass Index (BMI) 23.2 Intake & Output: Intake and Output for Last 24 Hours 07/14/22 07/15/22 07/16/22 23:59 23:59 23:59 Intake Total 2524.33 / 2524.33 1947.92 / 1947.92 Output Total 750 / 1550 1500 / 1500 Balance 1774.33 / 974.33 447.92 / 447.92 Lab / Micro Data Result Diagrams: 07/15/22 03:42 07/15/22 03:42 Radiography Diagnostic Testing: Radiology Impression KUB X-Ray 07/15/22 07:21 IMPRESSION: Small bowel obstruction Electronically Signed: Anshu Carrillo MD at 13:48 EDT Reading Location ID and State: [facility] / [place] , Service support , Physical Exam Const alert, oriented x3, no apparent distress, average body habitus, healthy appearing and well nourished Constitutional Narrative: Older white male sitting on the edge of the bed, appears anxious to go home but nontoxic and very pleasant HEENT head/scalp atraumatic HEENT Narrative: Dentition is fair, Mallampati is 2-3, no thrush Head and Scalp: normocephalic Resp normal respiratory effort, no retractions, no use of accessory muscles and clear to auscultation bilaterally Auscultation: Negative for crackles, rales, rhonchi or wheezes Cardio regular rate, regular rhythm, S1 normal heart sound, S2 normal heart sound, no murmurs, no rub, no gallops, no clicks and no JVD GI normal to inspection, nondistended, normoactive bowel sounds, soft to palpation and non-tender Extremity no clubbing, cyanosis or edema Neuro oriented x3, CN's II-XII intact bilaterally, moves all extremities and no focal motor deficits Sensorium / Orientation: awake, alert, oriented to person, oriented to place and oriented to time Speech: speech normal Psych affect normal Assessment & Plan Assessment/Plan (1) Small bowel obstruction: (2) Hypertension: PLAN: Plan Small bowel obstruction -Seems to have resolved -Partial small bowel obstruction suspected due to adhesions -NG removed -P.o. diet initiated -Patient with flatus and bowel movement -No nausea vomiting -It appears as if the plan is for discharge later today Hypertension -Patient was on enalaprilat during his hospitalization however he refused this morning's dose -Home antihypertensives were needed with atenolol 25 mg p.o. twice daily, lisinopril 10 mg daily, and nifedipine 30 mg daily -Recommend outpatient follow-up with his PCP for further evaluation of his blood pressure in the future History of PAF -Patient remains in normal sinus rhythm -Continue home atenolol -Patient's not anticoagulated CKD stage IIIb -Serum creatinine appears to be close to baseline -Avoid nephrotoxins -Recommend repeat BMP in 1 to 2 weeks after discharge to confirm stability DVT prophylaxis -Early ambulation -Low risk
--- NOTE | 2022-07-16 11:08 | PCM.PN.SRG ---
Subjective Subjective patient reports passing flatus and denies abdominal pain this morning NG tube d/c'd Objective Data Objective Data Vital Signs: Vital Signs Temp Pulse Resp BP Pulse Ox O2 Del Method 97.6 F L 55 L 16 169/81 H 99 Room Air 07/16/22 08:35 07/16/22 10:20 07/16/22 08:35 07/16/22 10:20 07/16/22 08:35 07/16/22 08:35 Oxygen Delivery Method Room Air Weight: 73.5 kg Body Mass Index (BMI) 23.2 Intake & Output: Intake and Output for Last 24 Hours 07/14/22 07/15/22 07/16/22 23:59 23:59 23:59 Intake Total 2524.33 / 2524.33 1947.92 / 1947.92 Output Total 750 / 1550 1500 / 1500 Balance 1774.33 / 974.33 447.92 / 447.92 Lab / Micro Data Attestation: I reviewed the patient's lab results. Result Diagrams: 07/15/22 03:42 07/15/22 03:42 Radiography Diagnostic Testing: Radiology Impression KUB X-Ray 07/15/22 07:21 IMPRESSION: Small bowel obstruction Electronically Signed: Anshu Carrillo MD at 13:48 EDT , Physical Exam Const alert and oriented x3 General Appearance: cooperative and comfortable Eyes no scleral icterus Neck supple Resp normal respiratory effort Effort and Inspection: able to speak in complete sentences Cardio regular rate GI GI Narrative: abdomen is soft and benign Assessment & Plan Assessment/Plan (1) Small bowel obstruction: PLAN: SBO resolved, patient started on clear liquid diet - to avoid carbonated beverages for a few days can be d/c'd home on liquid diet - to advance to regular at home Follow up with his PCP
== END 2022-07-16 11:38 | disposition home or self-care (01) | DRG 390 ==
LOC: ED 08:04 → MS3 08:22
PROVIDERS: Admitting Provider Surgery; Emergency Provider Emergency Medicine; PCP Nurse Practitioner Family; Visit Provider Surgery
DX: K56.51 Intestinal adhesions [bands], with partial obstruction (principal); J44.9 Chronic obstructive pulmonary disease, unspecified; I48.0 Paroxysmal atrial fibrillation; N18.32 Chronic kidney disease, stage 3b; I12.9 Hypertensive chronic kidney disease with stage 1 through stage 4 chronic kidney disease, or unspecified chronic kidney disease; I25.10 Atherosclerotic heart disease of native coronary artery without angina pectoris; I25.2 Old myocardial infarction; Z90.49 Acquired absence of other specified parts of digestive tract; Z95.1 Presence of aortocoronary bypass graft; Z95.5 Presence of coronary angioplasty implant and graft; Z79.82 Long term (current) use of aspirin; Z79.899 Other long term (current) drug therapy
CPT/HCPCS: 74018; 74176; 80048; 80076; 81001; 83690; 85025; 93005; 96361; 96365; 96366; 96375; 96376; 99285; J7030; J7120; A4216; J2405

== ENCOUNTER 2023-05-09 07:45 | Inpatient (IN) | payer MEDICARE, SELFPAY ==
[2023-05-09] VITALS (15 sets, daily range): BP systolic 111–192; BP diastolic 70–130; PULSE 63–157; RESP 15–19; TEMP 36.3–37.1; O2SAT 94–100; BMI 24.6
--- NOTE | 2023-05-09 07:52 | EKG12_ITS ---
Test Reason : Blood Pressure : / mmHG Vent. Rate : 076 BPM Atrial Rate : 076 BPM P-R Int : 168 ms QRS Dur : 096 ms QT Int : 436 ms P-R-T Axes : 026 -09 026 degrees QTc Int : 490 ms Normal sinus rhythm Cannot rule out Inferior infarct , age undetermined Abnormal ECG Confirmed by DAHLIA MILAN, KENNETH ([id number]), newspaper or periodical editor GRACIE BLEDSOE ([id number]) on 05/10/2023 9:16:57 AM Referred By: SEAN Confirmed By:KENNETH VILLAGOMEZ MD
--- NOTE | 2023-05-09 07:53 | CT_ITS ---
STUDY: CT ABDOMEN AND PELVIS WITHOUT CONTRAST REASON FOR EXAM: Male, 73 years old. Abdominal pain. History of multiple small bowel obstructions and surgical intervention. RADIATION DOSAGE (If Supplied By Facility): CTDIvol = ( 6.67 ) mGy, DLP = ( 346.77 ) mGycm TECHNIQUE: Transaxial images were obtained from the dome of the diaphragm to the symphysis pubis without oral contrast, and without intravenous contrast. Sagittal and coronal images were reconstructed. Individualized dose optimization techniques were used for this CT. COMPARISON: None. FINDINGS: Increased markings at the lung bases slightly more prominent on the right side suggestive of scarring. Coronary artery calcification. Prior CABG. Normal liver. Multiple small gallstones is seen along the dependent portion of the gallbladder lumen. Stable 2.6 cm x 2.1 sono partially calcified mass in the anterior aspect of the spleen. Normal pancreas. Normal bilateral adrenal glands. Normal right kidney. Normal left kidney. Normal visualized stomach. There are dilated loops of the small intestine with a non-distended colon consistent with a small bowel obstruction. The transition point is in the distal ileum. There are multiple colonic diverticula consistent with diverticulosis. There is evidence of right hemicolectomy with ileocolic anastomosis in the anterior right mid abdomen. The patient is status post appendectomy. There is diffuse atherosclerotic calcification of the abdominal aorta and its major visceral branches, without a demonstrated aneurysm. Normal inferior vena cava. Normal retroperitoneum. Normal urinary bladder. Normal abdominal wall. There are degenerative changes of the visualized lumbar spine. CT/Abdomen/Pelvis without Cont IMPRESSION: Small bowel obstruction in the distal ileum. The patient is status post right hemicolectomy. Stable partially calcified nodule in the spleen. Small layering gallstones. Electronically Signed: Yanick Stokes MD at 8:48 EDT ,
--- NOTE | 2023-05-09 07:55 | EX.ED.DYSGE1 ---
HPI History of Present Illness Chief Complaint: Abd Pain Informant: patient and EMS Narrative Narrative: Patient is a 73-year-old male presenting with worsening abdominal pain since midnight (the past 8 hours). Patient is a history of small bowel obstruction and feels like this is an obstruction. 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 Patient was treated for small bowel obstruction nonoperatively twice in 2021. Patient also has a history of GI bleeding as well which is why he is not anticoagulated even though he has atrial fibrillation. Patient has dry heaves but states nothing is coming up. He states he did have a small bowel movement this morning and has passed a small amount of gas. He notes over the past 2 days his bowel movements have been harder nature so he thinks this might of been developing. Patient denies any chest pain, difficulty breathing or other symptoms. He is complaining of abdominal pain diffusely but points more towards the periumbilical/left lower quadrant. No other complaints or concerns at this time. Chart review does show that patient has been seen by Dr. Baumann and for GI bleeding as well as dilation of Schatzki rings as well as requiring dilation of the ileocecal anastomosis. Colonoscopy also showed findings consistent with inflammatory bowel disease. Patient does also have a history of coronary artery disease and hypertension. [facility] Medical History Atrial fibrillation Chest pain Coronary artery disease Hypertension Kidney disease Myocardial infarct Home Medications atenolol 25 mg tablet 25 mg PO BID blood pressure 01/30/22 [History Last Taken 05/07/23] lisinopril 10 mg tablet 10 mg PO DAILY blood pressure 01/30/22 [History Last Taken 05/08/23] nitroglycerin 0.4 mg sublingual tablet 0.4 mg sublingual Q5M PRN Cardiac/Chest Pain #30 tabs 02/02/22 [Rx Last Taken Unknown] acetaminophen 500 mg tablet (Acetaminophen Extra Strength) 1,000 mg PO Q6H PRN pain 05/09/23 [History Last Taken 05/08/23] aspirin 81 mg tablet,delayed release (Adult Low Dose Aspirin) 81 mg PO DAILY 05/09/23 [History Last Taken 05/08/23] nifedipine 60 mg tablet,extended release 60 mg PO DAILY 05/09/23 [History Last Taken 05/08/23] Allergy/AdvReac Type Severity Reaction Status Date / Time prochlorperazine Allergy Anaphylaxis Verified 07/15/22 03:17 [From Compazine] Iodinated Contrast Media AdvReac Mild Other Verified 07/15/22 03:34 [iv contrast] Family History Other CVA (cerebral vascular accident) Myocardial infarction Surgical History History of bowel resection History of coronary artery stent placement Hx of CABG Social History household members: none housing: house pets and animals: Yes pets and animals: cat(s) Smoking Status: Never smoker substance use type: does not use ROS ROS ED Constitutional Constitutional ED: Denies chills or fever(s) ENT ENT ED: Denies sore throat Cardiovascular Cardiovascular: Denies chest pain Respiratory/Chest Respiratory/Chest: Denies cough or dyspnea Gastrointestinal Gastrointestinal: Reports abdominal pain, constipation, nausea and vomiting Genitourinary Genitourinary ED: Denies dysuria Musculoskeletal Musculoskeletal: Denies arthralgias or myalgias Integumentary Denies rash Neurologic Neurologic: Denies headache(s) or weakness Hematologic/Lymphatic Hematologic/Lymphatic: Reports easy bruising EXAM Physical Exam Const Vital Signs: 05/09/23 07:46 05/09/23 11:17 05/09/23 12:03 Temperature 97.3 F L 98.1 F Temperature Source Temporal Oral Pulse Rate 93 71 82 Respiratory Rate 18 16 18 Respiratory Effort Respiratory Depth Respiratory Pattern Blood Pressure 166/130 H 192/93 H 167/78 H Blood Pressure Mean 142 126 107 Blood Pressure Source Blood Pressure Position Blood Pressure Location Pulse Ox 97 95 94 Oxygen Delivery Method Room Air Room Air Room Air 05/09/23 12:49 05/09/23 12:59 Temperature 97.8 F Temperature Source Temporal Pulse Rate 83 Respiratory Rate 16 Respiratory Effort Normal Non-Labored Respiratory Depth Normal Respiratory Pattern Normal Blood Pressure 173/83 H Blood Pressure Mean 113 Blood Pressure Source Monitor Blood Pressure Position Semi-Fowlers Blood Pressure Location Left Arm Pulse Ox 100 Oxygen Delivery Method Room Air Room Air Positive well nourished and well developed General Appearance ED: well developed and NAD HEENT Reports moist mucous membranes Eyes PERRL and EOMs intact bilaterally Neck supple Chest Wall inspection of chest normal and palpation of chest normal Resp normal respiratory effort and clear to auscultation bilaterally Cardio regular rate, regular rhythm and no murmurs GI GI Narrative: Mildly distended abdomen, decreased bowel sounds. Diffuse tenderness to palpation. No rigidity or peritoneal signs. 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 General Extremety ED: Negative for edema General Extremity: Negative for edema Neuro oriented x3 Sensorium / Orientation: alert Motor Exam: Negative for general weakness Psych mental status grossly normal Skin no rashes or lesions noted Skin Narrative: Healing area of ecchymosis to the right upper quadrant?patient states is from dropping something on his abdomen in his garage MDM MDM MDM Narrative Medical decision making narrative: Patient's evaluated abdominal pain that started at midnight tonight, dry heaves and concern for obstruction. Has significant history of what sounds like possible inflammatory bowel disease/Crohn's disease, prior right hemicolectomy and recurrent obstruction as well as stenosis of his ileocecal anastomosis. Differential includes small bowel obstruction, incarcerated hernia, diverticulitis, inflammatory bowel disease as well as ischemic bowel Patient does not have a leukocytosis. Lactate obtained which is mildly elevated at 2.3 however I suspect this is more from dehydration and not an ischemic process. This is further supported by the fact that his hemoglobin is elevated today at 17.0 suggestive of hemoconcentration. He does not have pain out of proportion on abdominal exam however even though he seems pretty comfortable continues to complain of pain and asked for repeated doses of IV pain medication. No report of any black or blood in his stool. Urinalysis largely normal. CT is consistent with small bowel obstruction of the distal ileum. NG is placed as patient has continued pain and nausea as well as dry heaves. Case is discussed with surgery on-call, Dr. Sifuentes, who is familiar with the patient. He will admit to his service. Does request a consult for GI and medicine. Patient remains hemodynamically stable in the ER and is agreeable this plan of care. History & Record Review Additional record(s) reviewed:: Prior inpatient record Lab Data Attestation: I reviewed the patient's lab results. Labs: Laboratory Results - last 24 hr 05/09/23 05/09/23 05/09/23 08:03 09:15 12:40 WBC 8.3 RBC 5.61 Hgb 17.0 H Hct 51.8 MCV 92.3 MCH 30.3 MCHC 32.8 RDW Std Deviation 45.3 H RDW Coeff of Navneet 13.2 Plt Count 180 MPV 9.3 Immature Gran % (Auto) 0.400 Neut % (Auto) 79.6 H Lymph % (Auto) 11.6 L [place] % (Auto) 6.5 Eos % (Auto) 1.2 Baso % (Auto) 0.7 Absolute Neuts (auto) 6.6 Absolute Lymphs (auto) 0.97 Nucleated RBC % 0 Sodium 140 Potassium 4.2 Chloride 109 H Carbon Dioxide 21.0 Anion Gap 10 BUN 26 H Creatinine 1.62 H Estim Creat Clear Calc 41.31 Est GFR (MDRD) Af Amer 54 L Est GFR (MDRD) Non-Af 45 L BUN/Creatinine Ratio 16.0 Glucose 125 H Lactic Acid 2.3 H* 1.4 Calcium 9.3 Total Bilirubin 0.40 AST 46 H ALT 27 Alkaline Phosphatase 135 H Total Protein 8.2 Albumin 3.8 Globulin 4.4 H Albumin/Globulin Ratio 0.9 Urine Color Yellow Urine Clarity Clear Urine pH 5.0 Ur Specific [place] 1.015 Urine Protein 15 H Urine Glucose (UA) Normal Urine Ketones Negative Urine Occult Blood 25 H Urine Nitrite Negative Urine Bilirubin Negative Urine Urobilinogen Normal Ur Leukocyte Esterase Negative Urine RBC 0 SEEN Urine WBC 0 SEEN Ur Squamous Epith Cells 0 SEEN Urine Bacteria 0 SEEN Urine Mucus 0 SEEN Radiography Diagnostic Testing: Clinical Impression(s) from Imaging Studies Abdomen/Pelvis CT 05/09/23 07:53 IMPRESSION: Small bowel obstruction in the distal ileum. The patient is status post right hemicolectomy. Stable partially calcified nodule in the spleen. Small layering gallstones. Electronically Signed: Yanick Stokes MD at 8:48 EDT , KUB X-Ray 05/09/23 09:58 IMPRESSION: The tip of the nasogastric tube is in the fundal portion of the stomach. Electronically Signed: Yanick Stokes MD at 10:36 EDT , Rhythm Strip Rhythm Strip: Sinus Rhythm Rate: 76 Ectopy: None EKG Initial EKG: Attestation: I personally reviewed and interpreted this EKG as follows: Interpretation: Sinus Rhythm Comments: Normal sinus rhythm rate of 76 bpm Normal axis Normal intervals Normal ST segments Discharge Plan Dx/Rx/DC Orders Clinical Impression: Small bowel obstruction, Hypertension Disposition Disposition: Acute Care Hospital [facility] Discharge Date/Time: 05/09/23 12:14
[2023-05-09] MEDS: HYDROmorphone 1 MG/ML Syringe 0.5 MG IV (08:02)
[2023-05-09] MEDS: Ondansetron 4 MG/2 ML Vial IV (08:03)
[2023-05-09] MEDS: 0.9% Normal Saline 1,000 ML 125 ML IV ×3 (08:05→21:25)
[2023-05-09 08:13] LABS: Absolute Lymphocyte Count 0.97 X10^3/uL (0.83-4.51); Absolute Neutrophil Count 6.6 X10^3/uL (2.0-7.7); Basophil# 0.06 X10^3/uL; Basophil% 0.7 % (0-1); Eosinophils% 1.2 % (0-5); Hematocrit 51.8 % (40-54); Lymphocyte # 0.97 X10^3/ul (0.83-4.51); Lymphocyte % 11.6 % (19-41); Mean Corp Hgb Conc 32.8 g/dL (32-36); Mean Corpuscular Hgb 30.3 pg (27.0-32.0); Mean Corpuscular Volume 92.3 fL (80-94); Mean Platelet Vol. 9.3 fl (6.2-12.0); Monocyte# 0.54 X10^3/uL; Monocyte% 6.5 % (0-10); NRBC Flagged by Analyzer 0 % (0-5); Neutrophil # 6.64 X10^3/uL (2.7-7.7); Neutrophil % 79.6 % (47-70); Platelet Count 180 K/mm3 (150-450); RBC Distribution Width CV 13.2 % (11.6-14.6); RBC Distribution Width SD 45.3 fl (35.1-43.9); Red Blood Count 5.61 M/mm3 (4.6-6.2); White Blood Count 8.3 K/mm3 (4.4-11.0)
[2023-05-09 08:31] LABS: ALB/GLOB Ratio 0.9 RATIO (0.9-2.4); AST(SGOT) 46 U/L (15-37); Alanine Aminotransfer ALT/SGPT 27 U/L (16-61); Albumin, Serum 3.8 g/dL (3.2-5.0); Alkaline Phosphatase 135 U/L (45-117); Anion Gap 10 (5-15); BUN 26 mg/dL (7-18); Calcium,Total 9.3 mg/dL (8.5-10.1); Chloride 109 mmol/L (98-107); Creatinine, Serum 1.62 mg/dL (0.70-1.30); EST Glomerular Filtration Rate 45 mL/min (>60); Est Glom Filt Rate - Afr Amer 54 mL/min (>60); Estimated Creatinine Clearance 41.31 ml/min; Globulin 4.4 g/dL (2.2-4.2); Glucose 125 mg/dL (74-106); Potassium 4.2 mmol/L (3.5-5.1); Protein, Total 8.2 g/dL (6.4-8.2); Sodium Level 140 mmol/L (136-145)
[2023-05-09 08:43] LABS: Lactic Acid 2.3 mmol/L (0.4-1.9)
[2023-05-09] MEDS: HYDROmorphone 0.5 MG/0.5 ML SYRINGE IV ×3 (08:50→21:08)
[2023-05-09 09:18] LABS: Bacteria 0 SEEN /hpf (None Seen); Mucous, Urine 0 SEEN /hpf (<or=2+); Red Blood Cells-Urine 0 SEEN /hpf (0-5); Squamous Epithelial Cells - UA 0 SEEN /hpf (0-5); White Blood Cells 0 SEEN /hpf (0-5)
[2023-05-09 09:20] LABS: Color, Urine Yellow (Yellow); Glucose, Dipstick Normal (Normal); Ketone-Dipstick Negative (Negative); Leukocyte Esterase-Dipstick Negative /ul (Negative); Nitrite-Dipstick Negative (Negative); Occult Blood-Urine 25 /ul (Negative); Protein-Dipstick 15 mg/dl (Negative); Specific Gravity, Urine 1.015 (1.002-1.030); Urine Bilirubin Dipstick Negative (Negative); Urine Clarity Clear (Clear); Urine Urobilinogen Normal (Normal)
--- NOTE | 2023-05-09 09:33 | ED.RN ---
PT UPSET ABOUT PAIN MEDICATION AND IS REQUESTING DILAUDID. MARY WORTHY HAS INFORMED HIM, HIS LAST DOSE WAS [address] ESTRADA WAS NOTIFIED OF HIS REQUEST. PT STATES WE ARE NOT DOING ANYTHING UNTIL HE GETS HIS PAIN MEDICATION. RN EXPLAINED THE NG WILL HELP WITH DECOMPRESSION OF HIS STOMACH. PT INFORMED HE HAS A BOWEL OBSTRUCTION AND THE NG TUBE IS USED TO HELP REMOVE SOME OF THE CONTENTS BEING BACK UP IN THE STOMACH. PT STATES HOW DO YOU KNOW IT'S A BOWEL OBSTRUCTION? RN STATED THE RADIOLOGIST REPORT HAS COME BACK AND DR. ESTRADA RECOMMENDS NG PLACEMENT. PT HAS HIT CALL LIGHT AND NOW REQUESTING HIS NG TUBE BE PLACED. DR. ESTRADA NOTIFIED.
--- NOTE | 2023-05-09 09:58 | RAD_ITS ---
STUDY: X-RAY - ABDOMEN/PELVIS REASON FOR EXAM: Male, 73 years old. NG Insertion TECHNIQUE: Single AP view of the abdomen / pelvis. COMPARISON: None. FINDINGS: The tip of the nasogastric tube is in the fundal portion of the stomach. RAD/Abdomen Single View (Portable) IMPRESSION: The tip of the nasogastric tube is in the fundal portion of the stomach. Electronically Signed: Yanick Stokes MD at 10:36 EDT ,
--- NOTE | 2023-05-09 10:16 | NURSING ---
DR AQUINO IN ROOM
[2023-05-09] MEDS: Morphine 4 MG/ML Syringe IV (10:19)
--- NOTE | 2023-05-09 10:32 | PCM.HP.STD ---
[facility] - General General Date of Admission: 05/09/23 Chief Complaint: Acute onset abdominal pain HPI Narrative [place] CLIFFORD, is a 73 M who presents to [facility] with complaints of 12-hour history of acute onset abdominal discomfort and abdominal distention. He is known to me from a prior admission in February 2022 where he was treated for a small bowel obstruction. He states that his symptoms started about midnight after a dinner of hamburgers and a eggplant salad. He notes that his was feeling poorly as well following dinner, but he began to suspect a possible small bowel obstruction after he had difficulty having a bowel movement this morning and suffered from some heartburn. Patient's ED work-up is notable for biochemistries that show evidence of probable dehydration with polycythemia, BRYSON, and mild lactic acidosis at 2.3. CT imaging consistent with small bowel obstruction and transition zone in the distal ileum. As above, Mr. Clifford has experienced prior admissions for small bowel obstructions. Most recently this occurred in July 2022 when he was seen by Dr. Kanchan Means and his obstruction resolved spontaneously as it did in February 2022. In the intervening period between these admissions he was admitted for evaluation of hematochezia and underwent upper and lower endoscopy with Dr. Baumann. He was diagnosed with a couple of duodenal ulcers on his EGD, but his colonoscopy demonstrated severe narrowing in the region of his terminal ileum and was ulcerated at the mucosal level. Biopsies were taken. Patient has a more remote history of right hemicolectomy with terminal ileal resection secondary to what he reports was Crohn's disease, however, he is not currently undergoing intervention for inflammatory bowel disease. He notes a decade long history of prednisone therapy from the ages of [age] before he underwent the above surgery. He recalls minimal benefit with this treatment. [facility] Medical History Atrial fibrillation Chest pain Coronary artery disease Hypertension Kidney disease Myocardial infarct Home Medications atenolol 25 mg tablet 25 mg PO BID blood pressure 01/30/22 [History Last Taken 05/07/23] lisinopril 10 mg tablet 10 mg PO DAILY blood pressure 01/30/22 [History Last Taken 05/08/23] nitroglycerin 0.4 mg sublingual tablet 0.4 mg sublingual Q5M PRN Cardiac/Chest Pain #30 tabs 02/02/22 [Rx Last Taken Unknown] acetaminophen 500 mg tablet (Acetaminophen Extra Strength) 1,000 mg PO Q6H PRN pain 05/09/23 [History Last Taken 05/08/23] aspirin 81 mg tablet,delayed release (Adult Low Dose Aspirin) 81 mg PO DAILY 05/09/23 [History Last Taken 05/08/23] nifedipine 60 mg tablet,extended release 60 mg PO DAILY 05/09/23 [History Last Taken 05/08/23] Allergy/AdvReac Type Severity Reaction Status Date / Time prochlorperazine Allergy Anaphylaxis Verified 07/15/22 03:17 [From Compazine] Iodinated Contrast Media AdvReac Mild Other Verified 07/15/22 03:34 [iv contrast] Family History Other CVA (cerebral vascular accident) Myocardial infarction Surgical History History of bowel resection History of coronary artery stent placement Hx of CABG Social History household members: none housing: house pets and animals: Yes pets and animals: cat(s) Smoking Status: Never smoker substance use type: does not use ROS ENT HEENT: Reports abnormal hearing Gastrointestinal Gastrointestinal: Reports abdominal pain, constipation and nausea Vital Signs Vital Signs Vital Signs: 05/09/23 07:46 Temperature 97.3 F L Temperature Source Temporal Pulse Rate 93 Respiratory Rate 18 Blood Pressure 166/130 H Blood Pressure Mean 142 Pulse Ox 97 Oxygen Delivery Method Room Air Weight Weight: 171 lb 11.841 oz Body Mass Index (BMI) 24.6 Physical Exam Const alert Constitutional Narrative: Mildly irritable General Appearance: cooperative Resp normal respiratory effort GI GI Narrative: Nondistended, soft, tender to palpation in the left upper quadrant with relatively normal exam to the remaining 3 quadrants Results Lab / Micro Data 05/09/23 08:03 05/09/23 08:03 Labs: Laboratory Results - last 24 hr 05/09/23 08:03: WBC 8.3, RBC 5.61, Hgb 17.0 H, Hct 51.8, MCV 92.3, MCH 30.3, MCHC 32.8, RDW Std Deviation 45.3 H, RDW Coeff of Navneet 13.2, Plt Count 180, MPV 9.3, Immature Gran % (Auto) 0.400, Neut % (Auto) 79.6 H, Lymph % (Auto) 11.6 L, [place] % (Auto) 6.5, Eos % (Auto) 1.2, Baso % (Auto) 0.7, Absolute Neuts (auto) 6.6, Absolute Lymphs (auto) 0.97, Nucleated RBC % 0, Sodium 140, Potassium 4.2, Chloride 109 H, Carbon Dioxide 21.0, Anion Gap 10, BUN 26 H, Creatinine 1.62 H, Estim Creat Clear Calc 41.31, Est GFR (MDRD) Af Amer 54 L, Est GFR (MDRD) Non-Af 45 L, BUN/Creatinine Ratio 16.0, Glucose 125 H, Lactic Acid 2.3 H*, Calcium 9.3, Total Bilirubin 0.40, AST 46 H, ALT 27, Alkaline Phosphatase 135 H, Total Protein 8.2, Albumin 3.8, Globulin 4.4 H, Albumin/Globulin Ratio 0.9 05/09/23 09:15: Urine Color Yellow, Urine Clarity Clear, Urine pH 5.0, Ur Specific [place] 1.015, Urine Protein 15 H, Urine Glucose (UA) Normal, Urine Ketones Negative, Urine Occult Blood 25 H, Urine Nitrite Negative, Urine Bilirubin Negative, Urine Urobilinogen Normal, Ur Leukocyte Esterase Negative, Urine RBC 0 SEEN, Urine WBC 0 SEEN, Ur Squamous Epith Cells 0 SEEN, Urine Bacteria 0 SEEN, Urine Mucus 0 SEEN Radiology Impression Abdomen/Pelvis CT 05/09/23 07:53 IMPRESSION: Small bowel obstruction in the distal ileum. The patient is status post right hemicolectomy. Stable partially calcified nodule in the spleen. Small layering gallstones. Electronically Signed: Yanick Stokes MD at 8:48 EDT , Assessment & Plan Assessment/Plan (1) Small bowel obstruction: PLAN: Patient is a 73-year-old male with history of Crohn's disease status post right hemicolectomy and subsequent small bowel obstructions who presents with signs and symptoms of another small bowel obstruction. Symptoms developed acutely 12 hours ago. He has signs of dehydration with his biochemistries. A nasogastric tube was placed by emergency medicine, but he still complains of left upper quadrant discomfort. He is tender but not peritoneal on exam. CT imaging demonstrates a transition zone in the distal ileum. Given patient's prior history of stricturing near his ileocolic anastomosis, I question whether this is secondary to adhesive disease versus primary inflammation versus ischemia. We will plan to admit for conservative measures upfront and consult with both hospitalist service (for assistance with management of comorbidities) and gastroenterology (for assistance with determining the appropriate course of action and trialing medical management versus upfront surgery). Neuro: As needed Dilaudid Pulm/CV: I-S, as needed antihypertensives?management by hospitalist service FEN/GI: Trend electrolytes, monitor creatinine with signs of BRYSON, strict n.p.o. with NG tube to low intermittent wall suction, tentatively plan for small bowel follow-through tomorrow : No current issues apart from BRYSON discussed above Heme/ID: Patient appears hemoconcentrated, trend CBC, no indication for antibiotics at this time Endo: No current issues Proph: Apply SCDs Dispo: Admit to inpatient Charges/Coding Visit Charges Inpatient E&M: 40345 Init Hosp L2
--- NOTE | 2023-05-09 10:35 | PCM.HP.STD ---
HPI - General General Date of Admission: 05/09/23 Date of Service: 05/09/23 Chief Complaint: ABDOMINAL PAIN HPI Narrative [place] CLIFFORD, is a 73 M with a PMH as outlined who presents via the ED on 05/09/2023 with [facility] Medical History Atrial fibrillation Chest pain Coronary artery disease Hypertension Kidney disease Myocardial infarct Home Medications atenolol 25 mg tablet 25 mg PO BID blood pressure 01/30/22 [History Last Taken 01/29/22] lisinopril 10 mg tablet 10 mg PO DAILY blood pressure 01/30/22 [History Last Taken 01/29/22] nitroglycerin 0.4 mg sublingual tablet 0.4 mg sublingual Q5M PRN Cardiac/Chest Pain #30 tabs 02/02/22 [Rx Last Taken Unknown] acetaminophen 500 mg tablet (Acetaminophen Extra Strength) 1,000 mg PO Q6H PRN pain 05/09/23 [History Last Taken 05/08/23] aspirin 81 mg tablet,delayed release (Adult Low Dose Aspirin) 81 mg PO DAILY 05/09/23 [History Last Taken 05/08/23] nifedipine 60 mg tablet,extended release 60 mg PO DAILY 05/09/23 [History Last Taken 05/08/23] Allergy/AdvReac Type Severity Reaction Status Date / Time prochlorperazine Allergy Anaphylaxis Verified 07/15/22 03:17 [From Compazine] Iodinated Contrast Media AdvReac Mild Other Verified 07/15/22 03:34 [iv contrast] Family History Other CVA (cerebral vascular accident) Myocardial infarction Surgical History History of bowel resection History of coronary artery stent placement Hx of CABG Social History household members: none housing: house pets and animals: Yes pets and animals: cat(s) Smoking Status: Never smoker substance use type: does not use Vital Signs Vital Signs Vital Signs: 05/09/23 07:46 Temperature 97.3 F L Temperature Source Temporal Pulse Rate 93 Respiratory Rate 18 Blood Pressure 166/130 H Blood Pressure Mean 142 Pulse Ox 97 Oxygen Delivery Method Room Air Weight Weight: 171 lb 11.841 oz Body Mass Index (BMI) 24.6 Results Lab / Micro Data 05/09/23 08:03 05/09/23 08:03 Labs: Laboratory Results - last 24 hr 05/09/23 08:03: WBC 8.3, RBC 5.61, Hgb 17.0 H, Hct 51.8, MCV 92.3, MCH 30.3, MCHC 32.8, RDW Std Deviation 45.3 H, RDW Coeff of Navneet 13.2, Plt Count 180, MPV 9.3, Immature Gran % (Auto) 0.400, Neut % (Auto) 79.6 H, Lymph % (Auto) 11.6 L, [place] % (Auto) 6.5, Eos % (Auto) 1.2, Baso % (Auto) 0.7, Absolute Neuts (auto) 6.6, Absolute Lymphs (auto) 0.97, Nucleated RBC % 0, Sodium 140, Potassium 4.2, Chloride 109 H, Carbon Dioxide 21.0, Anion Gap 10, BUN 26 H, Creatinine 1.62 H, Estim Creat Clear Calc 41.31, Est GFR (MDRD) Af Amer 54 L, Est GFR (MDRD) Non-Af 45 L, BUN/Creatinine Ratio 16.0, Glucose 125 H, Lactic Acid 2.3 H*, Calcium 9.3, Total Bilirubin 0.40, AST 46 H, ALT 27, Alkaline Phosphatase 135 H, Total Protein 8.2, Albumin 3.8, Globulin 4.4 H, Albumin/Globulin Ratio 0.9 05/09/23 09:15: Urine Color Yellow, Urine Clarity Clear, Urine pH 5.0, Ur Specific [place] 1.015, Urine Protein 15 H, Urine Glucose (UA) Normal, Urine Ketones Negative, Urine Occult Blood 25 H, Urine Nitrite Negative, Urine Bilirubin Negative, Urine Urobilinogen Normal, Ur Leukocyte Esterase Negative, Urine RBC 0 SEEN, Urine WBC 0 SEEN, Ur Squamous Epith Cells 0 SEEN, Urine Bacteria 0 SEEN, Urine Mucus 0 SEEN Radiology Impression Abdomen/Pelvis CT 05/09/23 07:53 IMPRESSION: Small bowel obstruction in the distal ileum. The patient is status post right hemicolectomy. Stable partially calcified nodule in the spleen. Small layering gallstones. Electronically Signed: Yanick Stokes MD at 8:48 EDT ,
--- NOTE | 2023-05-09 10:41 | PCM.CONS.GEN ---
Assessment & Plan Assessment/Plan (1) Small bowel obstruction: PLAN: Plan #Small bowel obstruction has had history of recurrent small bowel obstruction. Likely due to adhesions from right hemicolectomy for Crohn's disease several decades ago CT abdomen showed small bowel obstruction in the distal ileum admitted to general surgery service. management as per primary team general surgery #Afib with RVR patient was initially in NSR, but after admission the floor, started complaining of chest pain.EKG showed afib with RVR with HR of 153 Troponin series ordered. Patient given a bolus of Cardizem 25 mg x 1 Patient to be transferred to PCU. Patient currently n.p.o. so has not received his rate limiting medication of atenolol IV metoprolol as needed. If A-fib with RVR progresses, he will need to be started on Cardizem drip. not on blood thinners. Says he doesnt want to be on any blood thinner; he didnt give any reason for it and says he just doesnt want to be on a blood thinner. #Hypertension: Takes atenolol, lisinopril and nifedipine at home. These are currently on hold on account of h him being NPO. IV metoprolol as needed in light of tachycardia. #CAD: s/p stents. on aspirin DVT prophylaxis; lovenox. HPI Consult Data Date of Consult: 05/09/23 Attending Care Provider: Dr Sifuentes HPI Narrative Reason for Consultation: medical management HPI Narrative: IND[place] CLIFFORD, is a 73 M with a PMH as outlined who presents via the ED On 05/09/2023 with a complaint of abdominal pain. He had had numerous small bowel obstructions after he had hemicolectomy for Crohn's disease several decades ago. He started having abdominal pain, and said he started having abdominal pain around midnight. He had eaten some hamburgers and eggplant salad earlier in the evening. He was concerned about small bowel obstruction because he had had this before and said when he woke up this morning he was having difficulty having a bowel movement as well. He most recently had a small bowel obstruction in July 2022 when it was treated conservatively. On admission in the ED, vitals were temperature of 97.3 with blood pressure of 192/93 and pulse ox of 95% on room air. Respirate rate was 16. Pulse rate was 71 but subsequently went up to 153 when he also started complaining of some chest pain. CBC and BMP were unremarkable apart from creatinine of 1.62 which was around his baseline. Urinalysis showed no evidence of UTI. Abdominal pelvis CT showed evidence of small bowel obstruction in the distal ileum with evidence of s/p right hemicolectomy and small layering gallstones. Patient was admitted to the service of general surgery to be managed for small bowel obstruction and hospitalist service was consulted for medical management. [facility] Medical History Atrial fibrillation Chest pain Coronary artery disease Hypertension Kidney disease Myocardial infarct Home Medications atenolol 25 mg tablet 25 mg PO BID blood pressure 01/30/22 [History Last Taken 05/07/23] lisinopril 10 mg tablet 10 mg PO DAILY blood pressure 01/30/22 [History Last Taken 05/08/23] nitroglycerin 0.4 mg sublingual tablet 0.4 mg sublingual Q5M PRN Cardiac/Chest Pain #30 tabs 02/02/22 [Rx Last Taken Unknown] acetaminophen 500 mg tablet (Acetaminophen Extra Strength) 1,000 mg PO Q6H PRN pain 05/09/23 [History Last Taken 05/08/23] aspirin 81 mg tablet,delayed release (Adult Low Dose Aspirin) 81 mg PO DAILY 05/09/23 [History Last Taken 05/08/23] nifedipine 60 mg tablet,extended release 60 mg PO DAILY 05/09/23 [History Last Taken 05/08/23] Allergy/AdvReac Type Severity Reaction Status Date / Time prochlorperazine Allergy Anaphylaxis Verified 07/15/22 03:17 [From Compazine] Iodinated Contrast Media AdvReac Mild Other Verified 07/15/22 03:34 [iv contrast] Family History Other CVA (cerebral vascular accident) Myocardial infarction Surgical History History of bowel resection History of coronary artery stent placement Hx of CABG Social History household members: none housing: house pets and animals: Yes pets and animals: cat(s) Smoking Status: Never smoker substance use type: does not use ROS Constitutional Constitutional: Reports anorexia, fatigue, malaise and weakness; Denies chills or fever(s) Eyes Eyes: Denies change in vision ENT HEENT: Denies dysphagia or headache(s) Cardiovascular Cardiovascular: Denies chest pain, dyspnea on exertion, edema, lightheadedness, orthopnea, palpitations, rapid heart rate or syncope Respiratory/Chest Respiratory/Chest: Denies cough, dyspnea, shortness of breath at rest or shortness of breath with exertion Gastrointestinal Gastrointestinal: Reports abdominal pain and nausea; Denies constipation, diarrhea or vomiting Genitourinary Genitourinary: Denies burning urination or dysuria Neurologic Neurologic: Denies confusion, dizziness, focal weakness, headache(s) or numbness Psychiatric Psychiatric: Denies anxiety or depression Hematologic/Lymphatic Hematologic/Lymphatic: Denies anemia Physical Exam Const alert, oriented x3 and no apparent distress General Appearance: cooperative HEENT normocephalic, head/scalp atraumatic and hearing grossly normal bilaterally Mouth: dry mucous membranes Eyes PERRL, EOMs intact bilaterally and conjunctivae normal Neck no lymphadenopathy and supple Resp normal respiratory effort, no retractions, no use of accessory muscles and clear to auscultation bilaterally Cardio regular rate, regular rhythm, S1 normal heart sound, S2 normal heart sound and no murmurs GI GI Narrative: abdomen soft, tender to palpation, minimal bowel sounds, NG tube in situ, draining bilious fluid Extremity normal to inspection, full ROM and no clubbing, cyanosis or edema Neuro oriented x3, CN's II-XII intact bilaterally, moves all extremities and no focal motor deficits Sensorium / Orientation: awake and alert Motor Exam: strength 5/5 throughout Psych affect normal Lab / Micro Data 05/09/23 08:03 05/09/23 08:03 Labs: Laboratory Results - last 24 hr 05/09/23 08:03: WBC 8.3, RBC 5.61, Hgb 17.0 H, Hct 51.8, MCV 92.3, MCH 30.3, MCHC 32.8, RDW Std Deviation 45.3 H, RDW Coeff of Navneet 13.2, Plt Count 180, MPV 9.3, Immature Gran % (Auto) 0.400, Neut % (Auto) 79.6 H, Lymph % (Auto) 11.6 L, [place] % (Auto) 6.5, Eos % (Auto) 1.2, Baso % (Auto) 0.7, Absolute Neuts (auto) 6.6, Absolute Lymphs (auto) 0.97, Nucleated RBC % 0, Sodium 140, Potassium 4.2, Chloride 109 H, Carbon Dioxide 21.0, Anion Gap 10, BUN 26 H, Creatinine 1.62 H, Estim Creat Clear Calc 41.31, Est GFR (MDRD) Af Amer 54 L, Est GFR (MDRD) Non-Af 45 L, BUN/Creatinine Ratio 16.0, Glucose 125 H, Lactic Acid 2.3 H*, Calcium 9.3, Total Bilirubin 0.40, AST 46 H, ALT 27, Alkaline Phosphatase 135 H, Total Protein 8.2, Albumin 3.8, Globulin 4.4 H, Albumin/Globulin Ratio 0.9 05/09/23 09:15: Urine Color Yellow, Urine Clarity Clear, Urine pH 5.0, Ur Specific [place] 1.015, Urine Protein 15 H, Urine Glucose (UA) Normal, Urine Ketones Negative, Urine Occult Blood 25 H, Urine Nitrite Negative, Urine Bilirubin Negative, Urine Urobilinogen Normal, Ur Leukocyte Esterase Negative, Urine RBC 0 SEEN, Urine WBC 0 SEEN, Ur Squamous Epith Cells 0 SEEN, Urine Bacteria 0 SEEN, Urine Mucus 0 SEEN Radiology Impression Abdomen/Pelvis CT 05/09/23 07:53 IMPRESSION: Small bowel obstruction in the distal ileum. The patient is status post right hemicolectomy. Stable partially calcified nodule in the spleen. Small layering gallstones. Electronically Signed: Yanick Stokes MD at 8:48 EDT , KUB X-Ray 05/09/23 09:58 IMPRESSION: The tip of the nasogastric tube is in the fundal portion of the stomach. Electronically Signed: Yanick Stokes MD at 10:36 EDT , Charges/Coding Visit Charges Inpatient E&M: 80727 Subs Hosp L3
[2023-05-09] MEDS: hydrALAZINE 20 MG/ML Vial 10 MG IV (11:12)
--- NOTE | 2023-05-09 11:21 | ED.RN ---
PT STATING THAT DOSE OF MORPHINE WAS NOT ADMINISTERED. THIS RN NOTED ADMINISTRATION OF MORPHINE 4 MG AT 1019. ADDITIONALLY, PT ASKED HOW OFTEN CAN I HAVE PAIN MEDICATION? AND IS MORPHINE OR DILAUDID STRONGER? PATIENT EDUCATED ON FREQUENCY OF ADMINISTRATION AND DOSAGES OF NARCOTICS.
[2023-05-09 12:07] LABS: Reflex Lactate? Y
[2023-05-09] MEDS: 0.9% Saline Lock 10 ML Syringe IV ×2 (13:16→16:27)
[2023-05-09 13:28] LABS: Lactic Acid 1.4 mmol/L (0.4-1.9)
[2023-05-09] MEDS: dilTIAZem 25 MG/5 ML Vial IV BOLUS (16:27)
--- NOTE | 2023-05-09 16:57 | EX.PCM.CON.G ---
HPI Consult Data Date of Consult: 05/09/23 HPI Narrative Reason for Consultation: Abnormal CT scan HPI Narrative: [place] CLIFFORD, is a 73 M who presents with worsening abdominal pain since las night. Patient is a history of small bowel obstruction and feels like this is an obstruction. 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 Patient was treated for small bowel obstruction nonoperatively twice in 2021. Patient also has a history of GI bleeding as well which is why he is not anticoagulated even though he has atrial fibrillation. Patient has dry heaves but states nothing is coming up. He states he did have a small bowel movement this morning and has passed a small amount of gas. He notes over the past 2 days his bowel movements have been harder nature so he thinks this might of been developing. Patient denies any chest pain, difficulty breathing or other symptoms. He is complaining of abdominal pain diffusely but points more towards the periumbilical/left lower quadrant. No other complaints or concerns at this time. His past medical/surgical is complicated. He had undergone a partial right hemicolectomy and appendectomy about 40 years ago for what sounds like terminal ileitis/Crohn's disease (not being treated for such at this point in time. He was admitted to the hospital in January 2022 and underwent upper and lower endosopy by myself. He was found to have multiple ulcers of the stomach and duodenum. He underwent dilatation of a Schatzki's ring. On colonoscopy, he was found to have an ileocecal anastomosis that I dilated due to narrowing. He was also noted to have possible diverticular bleeding. He presented with partial SBO after discharge from above which resolved with NG tube decompression and IV hydration. [facility] Medical History Atrial fibrillation Chest pain Coronary artery disease Hypertension Kidney disease Myocardial infarct Home Medications atenolol 25 mg tablet 25 mg PO BID blood pressure 01/30/22 [History Last Taken 05/07/23] lisinopril 10 mg tablet 10 mg PO DAILY blood pressure 01/30/22 [History Last Taken 05/08/23] nitroglycerin 0.4 mg sublingual tablet 0.4 mg sublingual Q5M PRN Cardiac/Chest Pain #30 tabs 02/02/22 [Rx Last Taken Unknown] acetaminophen 500 mg tablet (Acetaminophen Extra Strength) 1,000 mg PO Q6H PRN pain 05/09/23 [History Last Taken 05/08/23] aspirin 81 mg tablet,delayed release (Adult Low Dose Aspirin) 81 mg PO DAILY 05/09/23 [History Last Taken 05/08/23] nifedipine 60 mg tablet,extended release 60 mg PO DAILY 05/09/23 [History Last Taken 05/08/23] Allergy/AdvReac Type Severity Reaction Status Date / Time prochlorperazine Allergy Anaphylaxis Verified 07/15/22 03:17 [From Compazine] Iodinated Contrast Media AdvReac Mild Other Verified 07/15/22 03:34 [iv contrast] Family History Other CVA (cerebral vascular accident) Myocardial infarction Surgical History History of bowel resection History of coronary artery stent placement Hx of CABG Social History household members: none housing: house pets and animals: Yes pets and animals: cat(s) Smoking Status: Never smoker substance use type: does not use ROS ENT HEENT: Reports abnormal hearing Gastrointestinal Gastrointestinal: Reports abdominal pain, constipation and nausea Physical Exam Const alert and oriented x3 General Appearance: cooperative and comfortable Eyes no scleral icterus Neck supple Resp normal respiratory effort Effort and Inspection: able to speak in complete sentences Cardio regular rate GI GI Narrative: abdomen is soft and benign Lab / Micro Data 05/09/23 08:03 05/09/23 08:03 Labs: Laboratory Results - last 24 hr 05/09/23 08:03: WBC 8.3, RBC 5.61, Hgb 17.0 H, Hct 51.8, MCV 92.3, MCH 30.3, MCHC 32.8, RDW Std Deviation 45.3 H, RDW Coeff of Navneet 13.2, Plt Count 180, MPV 9.3, Immature Gran % (Auto) 0.400, Neut % (Auto) 79.6 H, Lymph % (Auto) 11.6 L, [place] % (Auto) 6.5, Eos % (Auto) 1.2, Baso % (Auto) 0.7, Absolute Neuts (auto) 6.6, Absolute Lymphs (auto) 0.97, Nucleated RBC % 0, Sodium 140, Potassium 4.2, Chloride 109 H, Carbon Dioxide 21.0, Anion Gap 10, BUN 26 H, Creatinine 1.62 H, Estim Creat Clear Calc 41.31, Est GFR (MDRD) Af Amer 54 L, Est GFR (MDRD) Non-Af 45 L, BUN/Creatinine Ratio 16.0, Glucose 125 H, Lactic Acid 2.3 H*, Calcium 9.3, Total Bilirubin 0.40, AST 46 H, ALT 27, Alkaline Phosphatase 135 H, Total Protein 8.2, Albumin 3.8, Globulin 4.4 H, Albumin/Globulin Ratio 0.9 05/09/23 09:15: Urine Color Yellow, Urine Clarity Clear, Urine pH 5.0, Ur Specific [place] 1.015, Urine Protein 15 H, Urine Glucose (UA) Normal, Urine Ketones Negative, Urine Occult Blood 25 H, Urine Nitrite Negative, Urine Bilirubin Negative, Urine Urobilinogen Normal, Ur Leukocyte Esterase Negative, Urine RBC 0 SEEN, Urine WBC 0 SEEN, Ur Squamous Epith Cells 0 SEEN, Urine Bacteria 0 SEEN, Urine Mucus 0 SEEN 05/09/23 12:40: Lactic Acid 1.4 Rhythm Strip Rhythm Strip: Sinus Rhythm Rate: 76 Ectopy: None Radiology Impression Abdomen/Pelvis CT 05/09/23 07:53 IMPRESSION: Small bowel obstruction in the distal ileum. The patient is status post right hemicolectomy. Stable partially calcified nodule in the spleen. Small layering gallstones. Electronically Signed: Yanick Stokes MD at 8:48 EDT , KUB X-Ray 05/09/23 09:58 IMPRESSION: The tip of the nasogastric tube is in the fundal portion of the stomach. Electronically Signed: Yanick Stokes MD at 10:36 EDT , Assessment & Plan Assessment/Plan (1) Coronary artery disease: (2) Small bowel obstruction: PLAN: Plan t. 1. Small bowel obstruction This is patient's third round of having a small bowel obstruction. Previous events resolve spontaneously on his own. He may need Small bowel follow-through vs CT enterography. Discussed with the patient in detail about the typical etiology of small bowel obstructions and correlation with adhesions many times. Also explained general management including surgical management and his last resort would be surgery. 2. He possibly has multiple strictures in the small bowel. I will recommend a contrast Gastrografin based image. It is likely that this may pass. However this is his third or fourth episode of small bowel obstruction at the same area and may benefit from surgical resection with primary anastomosis. Charges/Coding Visit Charges Inpatient E&M: 26079 Init Hosp L3
[2023-05-09 17:16] LABS: Troponin-I HS 39 pg/mL (3.0-78.0)
[2023-05-09 18:45] LABS: Troponin-I HS 68 pg/mL (3.0-78.0)
--- NOTE | 2023-05-09 20:57 | PCM.HOSP.N ---
Hospitalist Note Patient with ongong RVR despite cardizem drip max for PCU status. Will trial lopressor IV and reassess for further interventions pending response. Will obtain Mag, TSH, ECHO as last noted 01/30/22.
--- NOTE | 2023-05-09 20:58 | ECHOD_ITS ---
Reason For Study: ATRIAL FIB-FLUTTER Procedure This was a 2D Doppler, Color Flow transthoracic echocardiogram. Exam performed portable in patient room. Left Ventricle Normal LV size. Left ventricular systolic function is normal. The estimated ejection fraction is 60 %. Stage 1 diastolic dysfunction. No regional wall motion abnormalities noted. Right Ventricle Normal RV size. Normal systolic function. Atria Normal left atrium. Normal right atrium. Mitral Valve Normal mitral valve. Tricuspid Valve Normal tricuspid valve. Mild (1+) tricuspid valve insufficiency. Pulmonary artery systolic pressure is 26 mmHg. Aortic Valve Normal aortic valve. Pulmonic Valve Normal pulmonic valve. Great Vessels Normal aortic root. The pulmonary artery is normal size. Normal inferior vena cava. Pericardium/Pleural No pericardial effusion. MMode/2D Measurements & Calculations LVIDd: 5.1 cm IVSd: 1.1 cm Ao root diam: 3.2 cm LVIDs: 3.4 cm LVPWd: 0.97 cm RVDd: 3.4 cm FS: 33.6 % LAV(MOD-bp): 40.2 ml LVAd ap4: 25.7 cm2 SV(MOD-sp4): 46.2 ml LAV(MOD-bp) Indexed: 20.6 ml/m2 LVLd ap4: 7.6 cm LAV(MOD-sp2): 39.5 ml EDV(MOD-sp4): 73.4 ml LAV(MOD-sp4): 39.1 ml EDV(sp4-el): 74.0 ml LVAs ap4: 14.0 cm2 LVLs ap4: 6.3 cm ESV(MOD-sp4): 27.2 ml ESV(sp4-el): 26.1 ml EF(MOD-sp4): 62.9 % EF(sp4-el): 64.8 % SV(sp4-el): 48.0 ml LA A4 area: 17.5 cm2 LA dimension(2D): 3.2 cm RA A4 area: 15.4 cm2 Time Measurements MV dec time: 0.26 sec Doppler Measurements & Calculations MV E max kishore: 77.5 cm/sec Lat Peak E' Kishore: 13.9 cm/sec Med Peak E' Kishore: 7.8 cm/sec MV A max kishore: 90.3 cm/sec E/E' lat: 5.6 E/E' med: 10.0 MV E/A: 0.86 Ao V2 max: 156.1 cm/sec LV V1 max: 132.6 cm/sec PA V2 max: 91.8 cm/sec Ao max P.7 mmHg LV V1 max P.0 mmHg TR max kishore: 238.1 cm/sec TR max P.7 mmHg ECHO/Echo Complete Interpretation Summary Normal LV size. Left ventricular systolic function is normal. The estimated ejection fraction is 60 %. Stage 1 diastolic dysfunction. Pulmonary artery systolic pressure is 26 mmHg. Ordering Physician: Ce Harry Referring Physician: CLAYTON TORRES Performed By: Laly Metz RDCS
[2023-05-09] MEDS: Enoxaparin 80 MG/0.8 ML Syringe SC (21:07)
[2023-05-09] MEDS: Metoprolol Tartrate 5 MG/5 ML Vial IV (21:07)
[2023-05-09 23:13] LABS: Magnesium 2.2 mg/dL (1.6-2.6); Thyroid Stim Hormone (TSH) 0.63 uIU/mL (0.358-3.74); Troponin-I HS 88 pg/mL (3.0-78.0)
[2023-05-10] VITALS (20 sets, daily range): BP systolic 117–183; BP diastolic 66–106; PULSE 56–85; RESP 11–20; TEMP 36.5–36.7; O2SAT 9–98
--- NOTE | 2023-05-10 01:46 | EKG12_ITS ---
Test Reason : RHYTHM CHANGE Blood Pressure : / mmHG Vent. Rate : 067 BPM Atrial Rate : 067 BPM P-R Int : 174 ms QRS Dur : 092 ms QT Int : 444 ms P-R-T Axes : 020 -12 -24 degrees QTc Int : 469 ms Normal sinus rhythm T wave abnormality, consider anterolateral ischemia Abnormal ECG When compared with ECG of 09-MAY-2023 08:00, MANUAL COMPARISON REQUIRED, DATA IS UNCONFIRMED Confirmed by DAHLIA MILAN, KENNETH ([id number]), video editor GRACIE BLEDSOE ([id number]) on 05/10/2023 12:46:06 PM Referred By: JUANITA Confirmed By:KENNETH VILLAGOMEZ MD
[2023-05-10] MEDS: HYDROmorphone 0.5 MG/0.5 ML SYRINGE IV (02:40)
[2023-05-10 06:31] LABS: Absolute Neutrophil Count 6.5 X10^3/uL (2.0-7.7); Basophil# 0.03 X10^3/uL; Basophil% 0.4 % (0-1); Eosinophil# 0.04 X10^3/uL; Eosinophils% 0.5 % (0-5); Hematocrit 46.5 % (40-54); Hemoglobin 15.1 g/dL (13.0-16.5); Lymphocyte % 12.9 % (19-41); Mean Corp Hgb Conc 32.5 g/dL (32-36); Mean Corpuscular Hgb 30.5 pg (27.0-32.0); Mean Corpuscular Volume 93.9 fL (80-94); Mean Platelet Vol. 9.5 fl (6.2-12.0); Monocyte# 0.83 X10^3/uL; Monocyte% 9.7 % (0-10); NRBC Flagged by Analyzer 0 % (0-5); Neutrophil % 76.1 % (47-70); Platelet Count 206 K/mm3 (150-450); RBC Distribution Width CV 13.6 % (11.6-14.6); RBC Distribution Width SD 46.9 fl (35.1-43.9); Red Blood Count 4.95 M/mm3 (4.6-6.2); White Blood Count 8.5 K/mm3 (4.4-11.0)
[2023-05-10] MEDS: 0.9% Normal Saline 1,000 ML 125 ML IV ×3 (07:00→22:23)
[2023-05-10 07:12] LABS: Anion Gap 4 (5-15); BUN 20 mg/dL (7-18); Calcium,Total 8.1 mg/dL (8.5-10.1); Chloride 111 mmol/L (98-107); Creatinine, Serum 1.33 mg/dL (0.70-1.30); EST Glomerular Filtration Rate 56 mL/min (>60); Est Glom Filt Rate - Afr Amer 68 mL/min (>60); Estimated Creatinine Clearance 50.31 ml/min; Glucose 102 mg/dL (74-106); Magnesium 2.3 mg/dL (1.6-2.6); Phosphorus 2.9 mg/dL (2.5-4.9); Potassium 3.8 mmol/L (3.5-5.1); Sodium Level 142 mmol/L (136-145)
--- NOTE | 2023-05-10 07:58 | PCM.PN.SRG ---
Subjective Subjective Patient seen and examined during AM rounds. He is found resting in bed this morning. He required transfer to the progressive care unit yesterday after developing atrial fibrillation with rapid ventricular response. He appears to be in normal sinus rhythm this morning. Along with this reversion of his rhythm, he has had resolution of his chest discomfort from yesterday. He states that his abdominal discomfort is now improved as well and confirms passage of some flatus. Objective Data Objective Data Vital Signs: Vital Signs Temp Pulse Resp BP Pulse Ox O2 Del Method 97.7 F L 61 15 142/66 H 94 Room Air 05/10/23 06:00 05/10/23 06:00 05/10/23 06:00 05/10/23 06:00 05/10/23 06:00 05/10/23 06:00 Oxygen Delivery Method Room Air Weight: 171 lb 11.841 oz Body Mass Index (BMI) 24.6 Intake & Output: Intake and Output for Last 24 Hours 05/08/23 05/09/23 05/10/23 23:59 23:59 23:59 Intake Total 1667.42 / 1677.42 1060.00 / 1060.00 Output Total 250 / 250 300 / 300 Balance 1417.42 / 1427.42 760.00 / 760.00 Lab / Micro Data 05/10/23 05:25 05/10/23 05:25 Labs: Laboratory Results - last 24 hr 05/09/23 08:03: WBC 8.3, RBC 5.61, Hgb 17.0 H, Hct 51.8, MCV 92.3, MCH 30.3, MCHC 32.8, RDW Std Deviation 45.3 H, RDW Coeff of Navneet 13.2, Plt Count 180, MPV 9.3, Immature Gran % (Auto) 0.400, Neut % (Auto) 79.6 H, Lymph % (Auto) 11.6 L, [place] % (Auto) 6.5, Eos % (Auto) 1.2, Baso % (Auto) 0.7, Absolute Neuts (auto) 6.6, Absolute Lymphs (auto) 0.97, Nucleated RBC % 0, Sodium 140, Potassium 4.2, Chloride 109 H, Carbon Dioxide 21.0, Anion Gap 10, BUN 26 H, Creatinine 1.62 H, Estim Creat Clear Calc 41.31, Est GFR (MDRD) Af Amer 54 L, Est GFR (MDRD) Non-Af 45 L, BUN/Creatinine Ratio 16.0, Glucose 125 H, Lactic Acid 2.3 H*, Calcium 9.3, Total Bilirubin 0.40, AST 46 H, ALT 27, Alkaline Phosphatase 135 H, Total Protein 8.2, Albumin 3.8, Globulin 4.4 H, Albumin/Globulin Ratio 0.9 05/09/23 09:15: Urine Color Yellow, Urine Clarity Clear, Urine pH 5.0, Ur Specific [place] 1.015, Urine Protein 15 H, Urine Glucose (UA) Normal, Urine Ketones Negative, Urine Occult Blood 25 H, Urine Nitrite Negative, Urine Bilirubin Negative, Urine Urobilinogen Normal, Ur Leukocyte Esterase Negative, Urine RBC 0 SEEN, Urine WBC 0 SEEN, Ur Squamous Epith Cells 0 SEEN, Urine Bacteria 0 SEEN, Urine Mucus 0 SEEN 05/09/23 12:40: Lactic Acid 1.4 05/09/23 16:03: Troponin I High Sens 39 05/09/23 18:10: Troponin I High Sens 68 05/09/23 22:15: Magnesium 2.2, Troponin I High Sens 88 H, TSH 0.63 05/10/23 05:25: WBC 8.5, RBC 4.95, Hgb 15.1, Hct 46.5, MCV 93.9, MCH 30.5, MCHC 32.5, RDW Std Deviation 46.9 H, RDW Coeff of Navneet 13.6, Plt Count 206, MPV 9.5, Immature Gran % (Auto) 0.400, Neut % (Auto) 76.1 H, Lymph % (Auto) 12.9 L, [place] % (Auto) 9.7, Eos % (Auto) 0.5, Baso % (Auto) 0.4, Absolute Neuts (auto) 6.5, Absolute Lymphs (auto) 1.10, Nucleated RBC % 0, Sodium 142, Potassium 3.8, Chloride 111 H, Carbon Dioxide 27.0, Anion Gap 4 L, BUN 20 H, Creatinine 1.33 H, Estim Creat Clear Calc 50.31, Est GFR (MDRD) Af Amer 68, Est GFR (MDRD) Non-Af 56 L, BUN/Creatinine Ratio 15.0, Glucose 102, Calcium 8.1 L, Phosphorus 2.9, Magnesium 2.3 Radiography Diagnostic Testing: Radiology Impression Abdomen/Pelvis CT 05/09/23 07:53 IMPRESSION: Small bowel obstruction in the distal ileum. The patient is status post right hemicolectomy. Stable partially calcified nodule in the spleen. Small layering gallstones. Electronically Signed: Yanick Stokes MD at 8:48 EDT , KUB X-Ray 05/09/23 09:58 IMPRESSION: The tip of the nasogastric tube is in the fundal portion of the stomach. Electronically Signed: Yanick Stokes MD at 10:36 EDT , Rhythm Strip Rhythm Strip: Sinus Rhythm Rate: 76 Ectopy: None Physical Exam Const oriented x3 and no apparent distress Resp normal respiratory effort Cardio regular rhythm Cardio Narrative: As seen on patient's bedside telemetry GI GI Narrative: Decreased abdominal distention, near complete resolution of patient's left-sided abdominal tenderness, NG tube with output of thin red?brown aspirate Assessment & Plan Assessment/Plan (1) Small bowel obstruction: PLAN: Patient is a 73-year-old male with history of Crohn's disease status post right hemicolectomy and subsequent small bowel obstructions who presents with signs and symptoms of another small bowel obstruction. Patient appears to have chemically cardioverted back to normal sinus rhythm overnight. He also has had some return of bowel function with confirmation of flatus. His abdominal exam is improved. Still, I- along with GI?would like to see a small bowel series to assess his distal small bowel more directly both for confirmation of patency as well as to determine the length of the segment potentially affected. Patient states he expresses understanding of this objective but simply wishes to have his nasogastric tube removed as soon as possible. Neuro: As needed Dilaudid Pulm/CV: I-S, Cardizem and further management of atrial fibrillation per hospitalist service, hypertension management by hospitalist service FEN/GI: Trend electrolytes, monitor creatinine improvement of BRYSON, strict n.p.o. with NG tube to low intermittent wall suction, small bowel follow-through this morning. Patient should be set out of bed in a chair to mitigate aspiration risk : No current issues apart from BRYSON discussed above Heme/ID: Hemoglobin lower now likely on account of rehydration via intravenous fluid support, trend CBC, no indication for antibiotics at this time Endo: No current issues Proph: Apply SCDs Dispo: Continue PCU stay Charges/Coding Visit Charges Inpatient E&M: 78128 Subs Hosp L2
--- NOTE | 2023-05-10 08:50 | RAD_ITS ---
CLINICAL HISTORY: Male, 73 years old. Gastrografin small bowel follow-through examination. PROCEDURE: 180 mL of equal parts of Gastrografin and water were injected through the nasogastric tube. Immediate images as well as six-hour image were obtained. 2 images were obtained. TECHNIQUE: (All elements of maximal sterile barrier technique followed, including US elements as applicable) On the immediate image, contrast is seen within the stomach and proximal jejunum. At 6 hours, the contrast is seen within the rectum. Residual small bowel dilatation. This may represent an ileus pattern. RAD/Small Bowel Series Only IMPRESSION: Contrast is seen within the colon down to the rectum on the 6 hour examination. Residual dilatation of central small bowel loops. This may represent ileus. Electronically Signed: Yanick Stokes MD at 8:09 EDT ,
--- NOTE | 2023-05-10 09:13 | PN_ITS ---
Subjective Subjective Patient seen and examined. His abdominal pain is much better. He denies any nausea, abdominal pain or diarrhea. He is passing gas. He went into afib with RVR yesterday and had to be transferred from [facility] down to PCU. He was started on cardizem drip and therapeutic lovenox. HR is down to the 60s and 70s today. He has converted to normal sinus rhythm. REview of systems is otherwise negative. Objective Data Objective Data Vital Signs: Vital Signs Temp Pulse Resp BP Pulse Ox O2 Del Method 97.7 F L 61 15 142/66 H 94 Room Air 05/10/23 06:00 05/10/23 06:00 05/10/23 06:00 05/10/23 06:00 05/10/23 06:00 05/10/23 08:00 Oxygen Delivery Method Room Air Weight: 171 lb 11.841 oz Body Mass Index (BMI) 24.6 Intake & Output: Intake and Output for Last 24 Hours 05/08/23 05/09/23 05/10/23 23:59 23:59 23:59 Intake Total 1667.42 / 1677.42 1080.00 / 1080.00 Output Total 250 / 250 300 / 300 Balance 1417.42 / 1427.42 780.00 / 780.00 Lab / Micro Data 05/10/23 05:25 05/10/23 05:25 Labs: Laboratory Results - last 24 hr 05/09/23 09:15: Urine Color Yellow, Urine Clarity Clear, Urine pH 5.0, Ur Specific [place] 1.015, Urine Protein 15 H, Urine Glucose (UA) Normal, Urine Ketones Negative, Urine Occult Blood 25 H, Urine Nitrite Negative, Urine Bilirubin Negative, Urine Urobilinogen Normal, Ur Leukocyte Esterase Negative, Urine RBC 0 SEEN, Urine WBC 0 SEEN, Ur Squamous Epith Cells 0 SEEN, Urine Bacteria 0 SEEN, Urine Mucus 0 SEEN 05/09/23 12:40: Lactic Acid 1.4 05/09/23 16:03: Troponin I High Sens 39 05/09/23 18:10: Troponin I High Sens 68 05/09/23 22:15: Magnesium 2.2, Troponin I High Sens 88 H, TSH 0.63 05/10/23 05:25: WBC 8.5, RBC 4.95, Hgb 15.1, Hct 46.5, MCV 93.9, MCH 30.5, MCHC 32.5, RDW Std Deviation 46.9 H, RDW Coeff of Navneet 13.6, Plt Count 206, MPV 9.5, Immature Gran % (Auto) 0.400, Neut % (Auto) 76.1 H, Lymph % (Auto) 12.9 L, [place] % (Auto) 9.7, Eos % (Auto) 0.5, Baso % (Auto) 0.4, Absolute Neuts (auto) 6.5, Absolute Lymphs (auto) 1.10, Nucleated RBC % 0, Sodium 142, Potassium 3.8, Chloride 111 H, Carbon Dioxide 27.0, Anion Gap 4 L, BUN 20 H, Creatinine 1.33 H, Estim Creat Clear Calc 50.31, Est GFR (MDRD) Af Amer 68, Est GFR (MDRD) Non-Af 56 L, BUN/Creatinine Ratio 15.0, Glucose 102, Calcium 8.1 L, Phosphorus 2.9, Magnesium 2.3 Radiography Diagnostic Testing: Radiology Impression KUB X-Ray 05/09/23 09:58 IMPRESSION: The tip of the nasogastric tube is in the fundal portion of the stomach. Electronically Signed: Yanick Stokes MD at 10:36 EDT , Rhythm Strip Rhythm Strip: Sinus Rhythm Rate: 76 Ectopy: None Physical Exam Const alert, oriented x3 and no apparent distress General Appearance: cooperative HEENT normocephalic, head/scalp atraumatic and hearing grossly normal bilaterally HEENT Narrative: NG tube in situ Eyes PERRL, EOMs intact bilaterally and conjunctivae normal Neck no lymphadenopathy and supple Resp normal respiratory effort, normal air movement, no retractions, no use of accessory muscles and clear to auscultation bilaterally Cardio regular rate, regular rhythm, S1 normal heart sound, S2 normal heart sound and no murmurs Cardio Narrative: afib has converted to NSR GI GI Narrative: abdomen soft, nontender, bowel sounds audible, NG tube in situ, draining bilious fluid Extremity normal to inspection, full ROM, normal capillary refill and no clubbing, cyanos is or edema Skin General Skin Exam: no breakdown Neuro oriented x3, CN's II-XII intact bilaterally, moves all extremities and no focal motor deficits Sensorium / Orientation: awake and alert Motor Exam: strength 5/5 throughout Psych thought process normal, cooperative and affect normal Appearance: appropriate Assessment & Plan Assessment/Plan (1) Small bowel obstruction: PLAN: Plan #Small bowel obstruction * has had history of recurrent small bowel obstruction. Likely due to adhesions from right hemicolectomy for Crohn's disease several decades ago * CT abdomen showed small bowel obstruction in the distal ileum * primary service is general surgery * NG Tube still in situ, draining bilious fluid * management as per primary team general surgery * #Afib with RVR * on cardizem drip. On therapeutic lovenox * HR now better controlled and is in NSR. * troponin only trended up slightly to 88 ; from 39->68->88 * on IV metoprolol also prn * cardiology on board * 2D echo ordered * on therapeutic lovenox; patient says he doesnt want to be on any blood thinners on outpatient basis. * * #Hypertension: * Takes atenolol, lisinopril and nifedipine at home. * These are currently on hold on account of h him being NPO. * #CKD 3: Cr is 1.33, which is actually lower than her baseline. Will monitor #CAD: s/p stents. on aspirin DVT prophylaxis; lovenox therapeutic dose Charges/Coding Visit Charges Inpatient E&M: 79957 Subs Hosp L2
--- NOTE | 2023-05-10 09:55 | CON.PCM.CA_ITS ---
Assessment & Plan Assessment/Plan (1) Coronary artery disease: QUALIFIERS: Coronary Disease-Associated Artery/Lesion type: bypass graft [place] vs. transplanted heart: [place] heart Associated angina: without angina Qualified Code(s): I25.810 - Atherosclerosis of coronary artery bypass graft(s) without angina pectoris PLAN: He does have a history of known coronary artery disease status post sabine nary bypass surgery remotely. At this time he is doing well he has not had any cardiac enzyme abnormality to suggest ischemia. The plan is to continue to follow him. * Will recommend an echocardiogram to assess his ventricular function and depending on the findings further recommendations will be made. * Further testing would be performed as an outpatient. (2) Hypertension: QUALIFIERS: Hypertension type: primary hypertension Qualified Code(s): I10 - Essential (primary) hypertension PLAN: He will continue with his beta-sammy at this time. We will obtain an echocardiogram to assess his ventricular function. (3) Atrial fibrillation: QUALIFIERS: Atrial fibrillation type: paroxysmal Qualified Code(s): I48.0 - Paroxysmal atrial fibrillation PLAN: He presents with an episode of atrial fibrillation likely stress mediated. I doubt this is ischemic. He has spontaneously converted back to sinus rhythm. Due to his GI issues at this time I will try away from anticoagulation. * In addition we should continue the IV diltiazem for 24 hours as he has the NG tube in place. * Will review his echocardiogram. HPI Consult Data Date of Consult: 05/10/23 HPI Narrative HPI Narrative: [place] CLIFFORD, is a 73 M who presents with abdominal distention and discomfort and recently diagnosed during this admission with a possible small bowel obstruction. He has a history with coronary artery disease status post coronary bypass surgery remotely who has been followed at an outside facility. 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 He also has had a history of Crohn's disease, hypertension and at least 1 episode of atrial fibrillation. During this admission he was noted to have presented with an irregularly irregular heart rate EKG confirming the same he was afebrile distended bowel and was admitted with an NG tube placement. He requested a cardiology consultation. He was started on intravenous diltiazem and spot subsequently spontaneously converted to sinus rhythm. He has no cardiac symptomatology at this time. He would want to be followed with a inspector brake lining. [facility] Medical History (Updated 05/10/23 @ 10:[address] Erik Marie MD) Atrial fibrillation Chest pain Coronary artery disease Hypertension Kidney disease Myocardial infarct Home Medications atenolol 25 mg tablet 25 mg PO BID blood pressure 01/30/22 [History Last Taken 05/07/23] lisinopril 10 mg tablet 10 mg PO DAILY blood pressure 01/30/22 [History Last Taken 05/08/23] nitroglycerin 0.4 mg sublingual tablet 0.4 mg sublingual Q5M PRN Cardiac/Chest Pain #30 tabs 02/02/22 [Rx Last Taken Unknown] acetaminophen 500 mg tablet (Acetaminophen Extra Strength) 1,000 mg PO Q6H PRN pain 05/09/23 [History Last Taken 05/08/23] aspirin 81 mg tablet,delayed release (Adult Low Dose Aspirin) 81 mg PO DAILY 05/09/23 [History Last Taken 05/08/23] nifedipine 60 mg tablet,extended release 60 mg PO DAILY 05/09/23 [History Last Taken 05/08/23] Allergy/AdvReac Type Severity Reaction Status Date / Time prochlorperazine Allergy Anaphylaxis Verified 07/15/22 03:17 [From Compazine] Iodinated Contrast Media AdvReac Mild Other Verified 07/15/22 03:34 [iv contrast] Family History Other CVA (cerebral vascular accident) Myocardial infarction Surgical History History of bowel resection History of coronary artery stent placement Hx of CABG Social History household members: none housing: house pets and animals: Yes pets and animals: cat(s) Smoking Status: Never smoker substance use type: does not use ROS Constitutional Constitutional: Denies fever(s) or weight loss Eyes Eyes: Reports systems reviewed and no addt'l complaints, except as documented ENT HEENT: Reports systems reviewed and no addt'l complaints, except as documented Cardiovascular Cardiovascular: Denies chest pain at rest, chest pain with activity, dyspnea at rest, dyspnea on exertion, edema, palpitations or paroxysmal nocturnal dyspnea Respiratory/Chest Respiratory/Chest: Denies dyspnea on exertion, productive cough, shortness of breath at rest or shortness of breath with exertion Gastrointestinal Gastrointestinal: Denies change in bowel habits, nausea, vomiting or weight changes Genitourinary Genitourinary: Denies difficulty urinating Musculoskeletal Musculoskeletal: Denies joint stiffness or muscle weakness Integumentary Integumentary: Denies lesions Neurologic Neurologic: Denies dizziness or syncope Psychiatric Psychiatric: Denies anxiety Endocrine Endocrinology: Denies excessive sweating or fatigue Hematologic/Lymphatic Hematologic/Lymphatic: Denies anemia Allergic/Immunologic Allergic/Immunologic: Denies seasonal rhinorrhea Risk Stratification Risk Stratification Applicable: No Objective Data Vital Signs: Vital Signs Temp Pulse Resp BP Pulse Ox O2 Del Method 97.7 F L 61 15 142/66 H 94 Room Air 05/10/23 06:00 05/10/23 06:00 05/10/23 06:00 05/10/23 06:00 05/10/23 06:00 05/10/23 08:00 Oxygen Delivery Method Room Air Weight: 171 lb 11.841 oz Body Mass Index (BMI) 24.6 Intake & Output: Intake and Output for Last 24 Hours 05/08/23 05/09/23 05/10/23 23:59 23:59 23:59 Intake Total 1667.42 / 1677.42 1080.00 / 1080.00 Output Total 250 / 250 300 / 300 Balance 1417.42 / 1427.42 780.00 / 780.00 Lab / Micro Data 05/10/23 05:25 05/10/23 05:25 Labs: Laboratory Results - last 24 hr 05/09/23 12:40: Lactic Acid 1.4 05/09/23 16:03: Troponin I High Sens 39 05/09/23 18:10: Troponin I High Sens 68 05/09/23 22:15: Magnesium 2.2, Troponin I High Sens 88 H, TSH 0.63 05/10/23 05:25: WBC 8.5, RBC 4.95, Hgb 15.1, Hct 46.5, MCV 93.9, MCH 30.5, MCHC 32.5, RDW Std Deviation 46.9 H, RDW Coeff of [place]ne[place] 13.6, Plt Count 206, MPV 9.5, Immature Gran % (Auto) 0.400, Neut % (Auto) 76.1 H, Lymph % (Auto) 12.9 L, [place] % (Auto) 9.7, Eos % (Auto) 0.5, Baso % (Auto) 0.4, Absolute Neuts (auto) 6.5, Absolute Lymphs (auto) 1.10, Nucleated RBC % 0, Sodium 142, Potassium 3.8, Chloride 111 H, Carbon Dioxide 27.0, Anion Gap 4 L, BUN 20 H, Creatinine 1.33 H, Estim Creat Clear Calc 50.31, Est GFR (MDRD) Af Amer 68, Est GFR (MDRD) Non-Af 56 L, BUN/Creatinine Ratio 15.0, Glucose 102, Calcium 8.1 L, Phosphorus 2.9, Magnesium 2.3 Rhythm Strip Rhythm Strip: Sinus Rhythm Rate: 76 Ectopy: None Cardiology Labs/Tests 05/09/23 12:40: Lactic Acid 1.4 05/09/23 22:15: Magnesium 2.2 05/10/23 05:25: WBC 8.5, RBC 4.95, Hgb 15.1, Hct 46.5, MCV 93.9, MCH 30.5, MCHC 32.5, Plt Count 206, MPV 9.5, Immature Gran % (Auto) 0.400, Neut % (Auto) 76.1 H , Lymph % (Auto) 12.9 L, [place] % (Auto) 9.7, Eos % (Auto) 0.5, Baso % (Auto) 0.4, Absolute Neuts (auto) 6.5, Nucleated RBC % 0, Sodium 142, Potassium 3.8, Chloride 111 H, Carbon Dioxide 27.0, Anion Gap 4 L, BUN 20 H, Creatinine 1.33 H, Est GFR (MDRD) Af Amer 68, Est GFR (MDRD) Non-Af 56 L, BUN/Creatinine Ratio 15.0, Glucose 102, Calcium 8.1 L, Phosphorus 2.9, Magnesium 2.3 Rhythm: EKG: ECHO: Stress Test: Cardiac Cath: PCI: CT Surgery: Holter monitor: EPS: PPM: CXR: Chest CT Scan: Radiography Diagnostic Testing: Radiology Impression KUB X-Ray 05/09/23 09:58 IMPRESSION: The tip of the nasogastric tube is in the fundal portion of the stomach. Electronically Signed: Yanick Stokes MD at 10:36 EDT ,
[2023-05-10] MEDS: Enoxaparin 80 MG/0.8 ML Syringe SC ×2 (09:59→22:23)
--- NOTE | 2023-05-10 13:55 | CASEMGMT ---
RN [place] SPECIAL MACHINE STITCHER CM to room to meet with patient for initial transition planning/care coordination assessment. RN AUSTIN introduced self and role at [facility]. Pt voices understanding and consents to assessment at this time. Pt resting in bed in no distress at this time. Pt is A/O at this time and answers all questions appropriately. Care providers, pharmacy, and demographics verified/updated at this time. PCP: Pt has no PCP. Pt states, But I really should get one. Pt has been provided w/ PCP list during prior hospitalization and he states he still has this list. He also is looking into a PCP that Jaida Padron NP/cardiology has told him about. He declines wanting another list of PCP's and states he plans to f/u about PCP soon and declines wanting/needing assistance. Specialists: Jaida Padron NP--cardiology Preferred Pharmacy: [facility] Insurance: [employer] [facility] Prescription Benefit: Yes. Pt currently on Lovenox. Pt states he does not want to discharge home on an anti-coagulant. Living Will/HPOA: Pt does not currently have LW/HCPOA LNOK: Cecilia Living Arrangements: Lives w/ in 2-story home w/6 steps to enter w/railing. Bedroom on 2nd floor. Pt states does well with the stairs. Independent w/ADL's. does most of the home mgnt tasks. Transportation: Pt states drives self DME: Denies using any DME except for a cane when he goes shopping. Pt denies wanting or needing any DME. HHC/SNF: SNF @ [facility] and [facility] after LA and CABG in 2013. Pt wishes to return home and states has no concerns with going home at time of discharge. CM to follow for any discharge planning/needs. Pt voices no concerns/needs at this time. Advised pt to ask for CM if any questions/concerns/needs arise. Voices understanding. PLAN: Home w/discharge plans in place. Jamie BHATTI RN, CM
[2023-05-11] VITALS (8 sets, daily range): BP systolic 131–173; BP diastolic 85–101; PULSE 58–102; RESP 16–22; TEMP 36.6–36.8; O2SAT 94–99
[2023-05-11] MEDS: 0.9% Normal Saline 1,000 ML 125 ML IV ×2 (05:23→15:07)
[2023-05-11 07:54] LABS: Absolute Lymphocyte Count 1.01 X10^3/uL (0.83-4.51); Absolute Neutrophil Count 4.9 X10^3/uL (2.0-7.7); Basophil# 0.05 X10^3/uL; Basophil% 0.7 % (0-1); Eosinophil# 0.16 X10^3/uL; Eosinophils% 2.4 % (0-5); Hematocrit 45.1 % (40-54); Hemoglobin 14.8 g/dL (13.0-16.5); Lymphocyte # 1.01 X10^3/ul (0.83-4.51); Lymphocyte % 15.1 % (19-41); Mean Corp Hgb Conc 32.8 g/dL (32-36); Mean Corpuscular Hgb 30.3 pg (27.0-32.0); Mean Corpuscular Volume 92.4 fL (80-94); Mean Platelet Vol. 9.5 fl (6.2-12.0); Monocyte# 0.54 X10^3/uL; Monocyte% 8.1 % (0-10); NRBC Flagged by Analyzer 0 % (0-5); Neutrophil % 73.6 % (47-70); Platelet Count 178 K/mm3 (150-450); RBC Distribution Width CV 13.4 % (11.6-14.6); Red Blood Count 4.88 M/mm3 (4.6-6.2); White Blood Count 6.7 K/mm3 (4.4-11.0)
[2023-05-11 08:34] LABS: Anion Gap 5 (5-15); BUN 11 mg/dL (7-18); BUN/Creat Ratio 9.5 RATIO (10-20); Calcium,Total 8.7 mg/dL (8.5-10.1); Chloride 111 mmol/L (98-107); Creatinine, Serum 1.16 mg/dL (0.70-1.30); EST Glomerular Filtration Rate 65 mL/min (>60); Est Glom Filt Rate - Afr Amer 79 mL/min (>60); Estimated Creatinine Clearance 57.69 ml/min; Glucose 100 mg/dL (74-106); Magnesium 2.3 mg/dL (1.6-2.6); Phosphorus 1.6 mg/dL (2.5-4.9); Potassium 3.8 mmol/L (3.5-5.1); Sodium Level 140 mmol/L (136-145)
--- NOTE | 2023-05-11 08:54 | PN.SURG_ITS ---
Subjective Subjective Patient has occasional nausea denies any vomiting or abdominal pain, patient's had bowel movements due to the contrast from the small bowel follow-through. Patient small bowel follow-through did make in the colon by 6 hours however he still had several dilated small bowel loops on KUB. Objective Data Objective Data Vital Signs: Vital Signs Temp Pulse Resp BP Pulse Ox O2 Del Method 98.1 F 80 16 151/89 H 94 Room Air 05/11/23 02:30 05/11/23 02:44 05/11/23 02:44 05/11/23 02:44 05/11/23 02:44 05/11/23 03:42 Oxygen Delivery Method Room Air Weight: 171 lb 11.841 oz Body Mass Index (BMI) 24.6 Intake & Output: Intake and Output for Last 24 Hours 05/09/23 05/10/23 05/11/23 23:59 23:59 23:59 Intake Total 1667.42 / 1677.42 3113.00 / 3233.00 1365 / 1365 Output Total 250 / 250 700 / 700 500 / 500 Balance 1417.42 / 1427.42 2413.00 / 2533.00 865 / 865 Lab / Micro Data 05/11/23 07:14 05/11/23 07:14 Labs: Laboratory Results - last 24 hr 05/11/23 07:14: WBC 6.7, RBC 4.88, Hgb 14.8, Hct 45.1, MCV 92.4, MCH 30.3, MCHC 32.8, RDW Std Deviation 46.0 H, RDW Coeff of [place]ne[place] 13.4, Plt Count 178, MPV 9.5, Immature Gran % (Auto) 0.100, Neut % (Auto) 73.6 H, Lymph % (Auto) 15.1 L, [place] % (Auto) 8.1, Eos % (Auto) 2.4, Baso % (Auto) 0.7, Absolute Neuts (auto) 4.9, Absolute Lymphs (auto) 1.01, Nucleated RBC % 0, Sodium 140, Potassium 3.8, Chloride 111 H, Carbon Dioxide 24.0, Anion Gap 5, BUN 11, Creatinine 1.16, Estim Creat Clear Calc 57.69, Est GFR (MDRD) Af Amer 79, Est GFR (MDRD) Non-Af 65, BUN/Creatinine Ratio 9.5 L, Glucose 100, Calcium 8.7, Phosphorus 1.6 L, Magnesium 2.3 Radiography Diagnostic Testing: Radiology Impression Echocardiogram 05/09/23 20:58 Interpretation Summary Normal LV size. Left ventricular systolic function is normal. The estimated ejection fraction is 60 %. Stage 1 diastolic dysfunction. Pulmonary artery systolic pressure is 26 mmHg. Ordering Physician: Ce Harry Referring Physician: CLAYTON TORRES Performed By: Laly Metz RDCS Rhythm Strip Rhythm Strip: Sinus Rhythm Rate: 76 Ectopy: None Physical Exam Const oriented x3 and no apparent distress Resp normal respiratory effort Cardio regular rate GI soft to palpation and non-tender Inspection: Negative for abdominal distention Assessment & Plan Assessment/Plan (1) Small bowel obstruction: PLAN: Patient is a 73-year-old male with history of Crohn's disease status post right hemicolectomy and subsequent small bowel obstructions who presents with signs and symptoms of another small bowel obstruction. PLAN: Plan Patient small bowel follow-through did go to the colon in 6 hours however patient still had some dilated small bowel. Patient does still have some occasional nausea denies any abdominal pain did have bowel movements due to the contrast. We will plan for possible MR enterography on Saturday to get a better look at the transition area in the small bowel due to his previous history of Crohn's. Okay for sips and chips of clears. Luisa Hart M.D. Pager: [phone] [facility] [address] [place] [address], [facility], [address] [place] [address] Office: [phone] Charges/Coding Visit Charges Inpatient E&M: 12368 Subs Hosp L2
--- NOTE | 2023-05-11 09:38 | PN.CARD_ITS ---
Subjective Subjective Patient seen and evaluated. Appears to be doing better this morning. Allowed to take p.o. Objective Data Vital Signs: Vital Signs Temp Pulse Resp BP Pulse Ox O2 Del Method 98.0 F 102 H 22 H 147/93 H 96 Room Air 05/11/23 08:00 05/11/23 09:00 05/11/23 09:00 05/11/23 09:00 05/11/23 09:00 05/11/23 09:00 Oxygen Delivery Method Room Air Weight: 171 lb 11.841 oz Body Mass Index (BMI) 24.6 Intake & Output: Intake and Output for Last 24 Hours 05/09/23 05/10/23 05/11/23 23:59 23:59 23:59 Intake Total 1667.42 / 1677.42 3113.00 / 3233.00 1427.83 / 1427.83 Output Total 250 / 250 700 / 700 500 / 500 Balance 1417.42 / 1427.42 2413.00 / 2533.00 927.83 / 927.83 Lab / Micro Data 05/11/23 07:14 05/11/23 07:14 Labs: Laboratory Results - last 24 hr 05/11/23 07:14: WBC 6.7, RBC 4.88, Hgb 14.8, Hct 45.1, MCV 92.4, MCH 30.3, MCHC 32.8, RDW Std Deviation 46.0 H, RDW Coeff of [place] 13.4, Plt Count 178, MPV 9.5, Immature Gran % (Auto) 0.100, Neut % (Auto) 73.6 H, Lymph % (Auto) 15.1 L, [place] % (Auto) 8.1, Eos % (Auto) 2.4, Baso % (Auto) 0.7, Absolute Neuts (auto) 4.9, Absolute Lymphs (auto) 1.01, Nucleated RBC % 0, Sodium 140, Potassium 3.8, Chloride 111 H, Carbon Dioxide 24.0, Anion Gap 5, BUN 11, Creatinine 1.16, Estim Creat Clear Calc 57.69, Est GFR (MDRD) Af Amer 79, Est GFR (MDRD) Non-Af 65, BUN/Creatinine Ratio 9.5 L, Glucose 100, Calcium 8.7, Phosphorus 1.6 L, Magnesium 2.3 Rhythm Strip Rhythm Strip: Sinus Rhythm Rate: 76 Ectopy: None Cardiology Labs/Tests 05/11/23 07:14: WBC 6.7, RBC 4.88, Hgb 14.8, Hct 45.1, MCV 92.4, MCH 30.3, MCHC 32.8, Plt Count 178, MPV 9.5, Immature Gran % (Auto) 0.100, Neut % (Auto) 73.6 H , Lymph % (Auto) 15.1 L, [place] % (Auto) 8.1, Eos % (Auto) 2.4, Baso % (Auto) 0.7, Absolute Neuts (auto) 4.9, Nucleated RBC % 0, Sodium 140, Potassium 3.8, Chloride 111 H, Carbon Dioxide 24.0, Anion Gap 5, BUN 11, Creatinine 1.16, Est GFR (MDRD) Af Amer 79, Est GFR (MDRD) Non-Af 65, BUN/Creatinine Ratio 9.5 L, Glucose 100, Calcium 8.7, Phosphorus 1.6 L, Magnesium 2.3 Rhythm: EKG: ECHO: Stress Test: Cardiac Cath: PCI: CT Surgery: Holter monitor: EPS: PPM: CXR: Chest CT Scan: Radiography Diagnostic Testing: Radiology Impression Echocardiogram 05/09/23 20:58 Interpretation Summary Normal LV size. Left ventricular systolic function is normal. The estimated ejection fraction is 60 %. Stage 1 diastolic dysfunction. Pulmonary artery systolic pressure is 26 mmHg. Ordering Physician: Ce Harry Referring Physician: CLAYTON TORRES Performed By: Laly Metz RDCS Physical Exam Const alert, oriented x3 and no apparent distress General Appearance: cooperative HEENT hearing grossly normal bilaterally Head and Scalp: atraumatic Eyes EOMs intact bilaterally Neck General: normal visual inspection Chest inspection of chest normal and palpation of chest normal Resp normal respiratory effort Auscultation: clear to auscultation bilaterally Cardio regular rate, regular rhythm, S1 normal heart sound and S2 normal heart sound Jugular Venous Distention: JVD GI normal to inspection, nondistended, normoactive bowel sounds Extremity normal capillary refill and no pedal edema Peripheral Pulses: Yes pulses 2+ throughout and femoral pulses present Skin no rashes or lesions noted Neuro oriented x3 and CN's II-XII intact bilaterally Psych Appearance: grossly normal and appropriate Assessment & Plan Assessment/Plan (1) Coronary artery disease: QUALIFIERS: Coronary Disease-Associated Artery/Lesion type: bypass graft [place] vs. transplanted heart: [place] heart Associated angina: without angina Qualified Code(s): I25.810 - Atherosclerosis of coronary artery bypass graft(s) without angina pectoris PLAN: He does have a history of known coronary artery disease status post coronary bypass surgery remotely. At this time he is doing well he has not had any cardiac enzyme abnormality to suggest ischemia. The plan is to continue to follow him. * His echocardiogram demonstrated preserved left ventricular systolic function. * Further testing would be performed as an outpatient. (2) Hypertension: QUALIFIERS: Hypertension type: primary hypertension Qualified Cod e(s): I10 - Essential (primary) hypertension PLAN: He will continue with his beta-sammy at this time. His echo demonstrated preserved ejection fraction. I would like to resume his atenolol but at 50 mg twice a day (3) Atrial fibrillation: QUALIFIERS: Atrial fibrillation type: paroxysmal Qualified Code(s): I48.0 - Paroxysmal atrial fibrillation PLAN: He presents with an episode of atrial fibrillation likely stress mediated. I doubt this is ischemic. He had spontaneously converted back to sinus rhythm. But he is back in A-fib. due to his GI issues at this time I will try away from anticoagulation. * In addition we should discontinue the IV diltiazem and start him on the beta- sammy. * Will hold off on anticoagulation for now.
--- NOTE | 2023-05-11 09:44 | PN_ITS ---
Subjective Subjective Patient seen and examined. He is wondering why he is still in afib, and is wondering why its not resolving. He denies any abdominal pain and says it has resolved. He is passing gas. Review of systems is otherwise negative. He remains on cardizem drirp, and hR is improving. Objective Data Objective Data Vital Signs: Vital Signs Temp Pulse Resp BP Pulse Ox O2 Del Method 98.0 F 102 H 22 H 147/93 H 96 Room Air 05/11/23 08:00 05/11/23 09:00 05/11/23 09:00 05/11/23 09:00 05/11/23 09:00 05/11/23 09:00 Oxygen Delivery Method Room Air Weight: 171 lb 11.841 oz Body Mass Index (BMI) 24.6 Intake & Output: Intake and Output for Last 24 Hours 05/09/23 05/10/23 05/11/23 23:59 23:59 23:59 Intake Total 1667.42 / 1677.42 3113.00 / 3233.00 1427.83 / 1427.83 Output Total 250 / 250 700 / 700 500 / 500 Balance 1417.42 / 1427.42 2413.00 / 2533.00 927.83 / 927.83 Lab / Micro Data 05/11/23 07:14 05/11/23 07:14 Labs: Laboratory Results - last 24 hr 05/11/23 07:14: WBC 6.7, RBC 4.88, Hgb 14.8, Hct 45.1, MCV 92.4, MCH 30.3, MCHC 32.8, RDW Std Deviation 46.0 H, RDW Coeff of Navneet 13.4, Plt Count 178, MPV 9.5, Immature Gran % (Auto) 0.100, Neut % (Auto) 73.6 H, Lymph % (Auto) 15.1 L, [place] % (Auto) 8.1, Eos % (Auto) 2.4, Baso % (Auto) 0.7, Absolute Neuts (auto) 4.9, Absolute Lymphs (auto) 1.01, Nucleated RBC % 0, Sodium 140, Potassium 3.8, Chloride 111 H, Carbon Dioxide 24.0, Anion Gap 5, BUN 11, Creatinine 1.16, Estim Creat Clear Calc 57.69, Est GFR (MDRD) Af Amer 79, Est GFR (MDRD) Non-Af 65, BUN/Creatinine Ratio 9.5 L, Glucose 100, Calcium 8.7, Phosphorus 1.6 L, Magnesium 2.3 Radiography Diagnostic Testing: Radiology Impression Echocardiogram 05/09/23 20:58 Interpretation Summary Normal LV size. Left ventricular systolic function is normal. The estimated ejection fraction is 60 %. Stage 1 diastolic dysfunction. Pulmonary artery systolic pressure is 26 mmHg. Ordering Physician: Ce Harry Referring Physician: CLAYTON TORRES Performed By: Laly Metz RDCS Rhythm Strip Rhythm Strip: Sinus Rhythm Rate: 76 Ectopy: None Physical Exam Const alert, oriented x3 and no apparent distress General Appearance: cooperative and well developed HEENT normocephalic, head/scalp atraumatic and hearing grossly normal bilaterally Eyes PERRL, EOMs intact bilaterally and conjunctivae normal Neck no lymphadenopathy and supple Lymph Lymphatic: no lymphadenopathy noted and no lymphedema noted Resp normal respiratory effort, normal air movement, no retractions, no use of accessory muscles and clear to auscultation bilaterally Cardio S1 normal heart sound, S2 normal heart sound and no murmurs Cardio Narrative: afib, still poorly controlled. GI normal to inspection, nondistended, normoactive bowel sounds, soft to palpation and non-tender GI Narrative: NG tube removed Extremity normal to inspection, full ROM, normal capillary refill and no clubbing, cyanosis or edema Skin General Skin Exam: no breakdown Neuro oriented x3, CN's II-XII intact bilaterally, moves all extremities and no focal motor deficits Sensorium / Orientation: awake and alert Motor Exam: strength 5/5 throughout Psych thought process normal, cooperative and affect normal Appearance: appropriate Assessment & Plan Assessment/Plan (1) Small bowel obstruction: PLAN: Plan #Small bowel obstruction * has had history of recurrent small bowel obstruction. Likely due to adhesions from right hemicolectomy for Crohn's disease several decades ago * CT abdomen showed small bowel obstruction in the distal ileum * primary service is general surgery * NG tube now out; started on ice chips and clears per general surgery * management as per primary team general surgery * #Afib with RVR * on cardizem drip. On therapeutic lovenox * HR still fluctuating. Back in afib today * cardiology on board. * 2D echo showed EF of 60% with stage I diastolic dysfunction and no regional wall motion abnormalities seen. * per cards, to hold off on anticoagulation due to GI issues * will therefore dc therapeutic lovenox * to transition to pO metoprolol, per cardiology. * patient now willing to consider anticoagulation on outpatient basis, if needed * #Hypertension: * Takes atenolol, lisinopril and nifedipine at home. * These are currently on hold on account of h him being NPO. * #CKD 3: CR is 1.16 today. Will monitor #CAD: s/p stents. on aspirin DVT prophylaxis; dc lovenox and put on SCDs Charges/Coding Visit Charges Inpatient E&M: 13216 Subs Hosp L2
[2023-05-11] MEDS: Atenolol 50 MG Tablet PO ×2 (13:19→21:38)
[2023-05-11] MEDS: amLODIPine 5 MG Tablet PO (13:19)
--- NOTE | 2023-05-11 17:04 | EKG12_ITS ---
Test Reason : AFIB/SINUS Blood Pressure : / mmHG Vent. Rate : 061 BPM Atrial Rate : 061 BPM P-R Int : 182 ms QRS Dur : 088 ms QT Int : 464 ms P-R-T Axes : 046 -24 029 degrees QTc Int : 467 ms Normal sinus rhythm ST & T wave abnormality, consider anterolateral ischemia Prolonged QT Abnormal ECG No previous ECGs available Confirmed by DAHLIA MILAN, KENNETH ([id number]), rewrite editor GRACIE BLEDSOE ([id number]) on 05/13/2023 1:25:12 PM Referred By: Confirmed By:KENNETH VILLAGOMEZ MD
[2023-05-12 03:00] VITALS: BP 148/82; PULSE 37; RESP 18; TEMP 36.7; O2SAT 95
[2023-05-12 06:11] LABS: Absolute Lymphocyte Count 0.97 X10^3/uL (0.83-4.51); Absolute Neutrophil Count 3.5 X10^3/uL (2.0-7.7); Basophil# 0.04 X10^3/uL; Basophil% 0.8 % (0-1); Eosinophil# 0.21 X10^3/uL; Hemoglobin 13.1 g/dL (13.0-16.5); Lymphocyte # 0.97 X10^3/ul (0.83-4.51); Lymphocyte % 18.6 % (19-41); Mean Corp Hgb Conc 32.8 g/dL (32-36); Mean Corpuscular Hgb 30.1 pg (27.0-32.0); Mean Platelet Vol. 9.1 fl (6.2-12.0); Monocyte# 0.53 X10^3/uL; Monocyte% 10.2 % (0-10); NRBC Flagged by Analyzer 0 % (0-5); Neutrophil # 3.45 X10^3/uL (2.7-7.7); Neutrophil % 66.2 % (47-70); Platelet Count 175 K/mm3 (150-450); RBC Distribution Width CV 13.1 % (11.6-14.6); RBC Distribution Width SD 44.6 fl (35.1-43.9); Red Blood Count 4.35 M/mm3 (4.6-6.2); White Blood Count 5.2 K/mm3 (4.4-11.0)
[2023-05-12] MEDS: 0.9% Normal Saline 1,000 ML 125 ML IV ×3 (07:55→22:50)
[2023-05-12 08:00] VITALS: PULSE 52
[2023-05-12] MEDS: Enoxaparin 40 MG/0.4 ML Syringe SC (08:05)
[2023-05-12] MEDS: amLODIPine 5 MG Tablet PO (08:07)
[2023-05-12] MEDS: Atenolol 50 MG Tablet PO (08:07)
--- NOTE | 2023-05-12 08:21 | PN.CARD_ITS ---
Subjective Subjective Patient in and evaluated. Appears to be stable. Maintaining stable heart rate. Says that he wants to be on 25 mg of atenolol. Because his heart rate went low. Objective Data Vital Signs: Vital Signs Temp Pulse Resp BP Pulse Ox O2 Del Method 98.1 F 37 L 18 148/82 H 95 Room Air 05/12/23 03:00 05/12/23 03:00 05/12/23 03:00 05/12/23 03:00 05/12/23 03:00 05/12/23 03:00 Oxygen Delivery Method Room Air Weight: 171 lb 11.841 oz Body Mass Index (BMI) 24.6 Intake & Output: Intake and Output for Last 24 Hours 05/10/23 05/11/23 05/12/23 23:59 23:59 23:59 Intake Total 3113.00 / 3233.00 3089.33 / 3089.33 1421.6633 / 1421.6633 Output Total 700 / 700 1225 / 1225 Balance 2413.00 / 2533.00 1864.33 / 1864.33 1421.6633 / 1421.6633 Lab / Micro Data 05/12/23 05:30 05/11/23 07:14 Labs: Laboratory Results - last 24 hr 05/11/23 07:14: Sodium 140, Potassium 3.8, Chloride 111 H, Carbon Dioxide 24.0, Anion Gap 5, BUN 11, Creatinine 1.16, Estim Creat Clear Calc 57.69, Est GFR (MDRD) Af Amer 79, Est GFR (MDRD) Non-Af 65, BUN/Creatinine Ratio 9.5 L, Glucose 100, Calcium 8.7, Phosphorus 1.6 L, Magnesium 2.3 05/12/23 05:30: WBC 5.2, RBC 4.35 L, Hgb 13.1, Hct 40.0, MCV 92.0, MCH 30.1, MCHC 32.8, RDW Std Deviation 44.6 H, RDW Coeff of Navneet 13.1, Plt Count 175, MPV 9.1, Immature Gran % (Auto) 0.200, Neut % (Auto) 66.2, Lymph % (Auto) 18.6 L, [place] % (Auto) 10.2 H, Eos % (Auto) 4.0, Baso % (Auto) 0.8, Absolute Neuts (auto) 3.5, Absolute Lymphs (auto) 0.97, Nucleated RBC % 0 Rhythm Strip Rhythm Strip: Sinus Rhythm Rate: 76 Ectopy: None Cardiology Labs/Tests 05/11/23 07:14: Sodium 140, Potassium 3.8, Chloride 111 H, Carbon Dioxide 24.0, Anion Gap 5, BUN 11, Creatinine 1.16, Est GFR (MDRD) Af Amer 79, Est GFR (MDRD) Non-Af 65, BUN/Creatinine Ratio 9.5 L, Glucose 100, Calcium 8.7, Phosphorus 1.6 L, Magnesium 2.3 05/12/23 05:30: WBC 5.2, RBC 4.35 L, Hgb 13.1, Hct 40.0, MCV 92.0, MCH 30.1, MCHC 32.8, Plt Count 175, MPV 9.1, Immature Gran % (Auto) 0.200, Neut % (Auto) 66.2, Lymph % (Auto) 18.6 L, [place] % (Auto) 10.2 H, Eos % (Auto) 4.0, Baso % (Auto) 0.8, Absolute Neuts (auto) 3.5, Nucleated RBC % 0 Rhythm: EKG: ECHO: Stress Test: Cardiac Cath: PCI: CT Surgery: Holter monitor: EPS: PPM: CXR: Chest CT Scan: Physical Exam Const alert, oriented x3 and no apparent distress General Appearance: cooperative and well developed HEENT normocephalic, head/scalp atraumatic and hearing grossly normal bilaterally Eyes PERRL, EOMs intact bilaterally and conjunctivae normal Neck no lymphadenopathy and supple Lymph Lymphatic: no lymphadenopathy noted and no lymphedema noted Resp normal respiratory effort, normal air movement, no retractions, no use of accessory muscles and clear to auscultation bilaterally Cardio S1 normal heart sound, S2 normal heart sound and no murmurs Cardio Narrative: afib, still poorly controlled. GI normal to inspection, nondistended, normoactive bowel sounds, soft to palpation and non-tender GI Narrative: NG tube removed Extremity normal to inspection, full ROM, normal capillary refill and no clubbing, cyanosis or edema Skin General Skin Exam: no breakdown Neuro oriented x3, CN's II-XII intact bilaterally, moves all extremities and no focal motor deficits Sensorium / Orientation: awake and alert Motor Exam: strength 5/5 throughout Psych thought process normal, cooperative and affect normal Appearance: appropriate Assessment & Plan Assessment/Plan (1) Coronary artery disease: QUALIFIERS: Coronary Disease-Associated Artery/Lesion type: bypass graft [place] vs. transplanted heart: [place] heart Associated angina: without angina Qualified Code(s): I25.810 - Atherosclerosis of coronary artery bypass graft(s) without angina pectoris PLAN: He does have a history of known coronary artery disease status post coronary bypass surgery remotely. At this time he is doing well he has not had any cardiac enzyme abnormality to suggest ischemia. The plan is to continue to follow him. * His echocardiogram demonstrated preserved left ventricular systolic function. * Further testing would be performed as an outpatient. (2) Hypertension: QUALIFIERS: Hypertension type: primary hypertension Qualified Code(s): I10 - Essential (primary) hypertension PLAN: He will continue with his beta-sammy at this time. His echo demonstrated preserved ejection fraction. I would like to resume his atenolol at 50 mg. He is hesitant to take it twice daily so we will see how he does with the 50 mg today and then advance as necessary. (3) Atrial fibrillation: QUALIFIERS: Atrial fibrillation type: paroxysmal Qualified Code(s): I48.0 - Paroxysmal atrial fibrillation PLAN: He presents with an episode of atrial fibrillation likely stress mediated. I doubt this is ischemic. He had spontaneously converted back to sinus rhythm. But he is back in A-fib. due to his GI issues at this time I will try away from anticoagulation. * In addition we should discontinue the IV diltiazem and start him on the beta- sammy. * Will hold off on anticoagulation for now.
--- NOTE | 2023-05-12 08:55 | PN.SURG_ITS ---
Subjective Subjective denies nausea, +BM, denies abd pain Objective Data Objective Data Vital Signs: Vital Signs Temp Pulse Resp BP Pulse Ox O2 Del Method 98.1 F 37 L 18 148/82 H 95 Room Air 05/12/23 03:00 05/12/23 03:00 05/12/23 03:00 05/12/23 03:00 05/12/23 03:00 05/12/23 03:00 Oxygen Delivery Method Room Air Weight: 171 lb 11.841 oz Body Mass Index (BMI) 24.6 Intake & Output: Intake and Output for Last 24 Hours 05/10/23 05/11/23 05/12/23 23:59 23:59 23:59 Intake Total 3113.00 / 3233.00 3089.33 / 3089.33 1421.6633 / 1421.6633 Output Total 700 / 700 1225 / 1225 Balance 2413.00 / 2533.00 1864.33 / 1864.33 1421.6633 / 1421.6633 Lab / Micro Data 05/12/23 05:30 05/12/23 05:30 Labs: Laboratory Results - last 24 hr 05/12/23 05:30: WBC 5.2, RBC 4.35 L, Hgb 13.1, Hct 40.0, MCV 92.0, MCH 30.1, MCHC 32.8, RDW Std Deviation 44.6 H, RDW Coeff of Navneet 13.1, Plt Count 175, MPV 9.1, Immature Gran % (Auto) 0.200, Neut % (Auto) 66.2, Lymph % (Auto) 18.6 L, [place] % (Auto) 10.2 H, Eos % (Auto) 4.0, Baso % (Auto) 0.8, Absolute Neuts (auto) 3.5, Absolute Lymphs (auto) 0.97, Nucleated RBC % 0 Rhythm Strip Rhythm Strip: Sinus Rhythm Rate: 76 Ectopy: None Physical Exam Const oriented x3 and no apparent distress Resp normal respiratory effort Cardio regular rate GI soft to palpation and non-tender Inspection: Negative for abdominal distention Assessment & Plan Assessment/Plan (1) Small bowel obstruction: PLAN: Patient is a 73-year-old male with history of Crohn's disease status post right hemicolectomy and subsequent small bowel obstructions who presents with signs and symptoms of another small bowel obstruction. PLAN: Plan ok for clears We will plan for possible MR enterography on Saturday to get a better look at the transition area in the small bowel due to his previous history of Crohn's. Luisa Hart M.D. Pager: [phone] [facility] [place] [facility] [address] [place] [address], Outpatient [place], [address] [place] [address] Office: [phone] Charges/Coding Visit Charges Inpatient E&M: 72739 Subs Hosp L2
[2023-05-12 09:48] LABS: Anion Gap 6 (5-15); BUN 13 mg/dL (7-18); BUN/Creat Ratio 11.1 RATIO (10-20); Calcium,Total 8.3 mg/dL (8.5-10.1); Chloride 111 mmol/L (98-107); Creatinine, Serum 1.17 mg/dL (0.70-1.30); EST Glomerular Filtration Rate 65 mL/min (>60); Est Glom Filt Rate - Afr Amer 78 mL/min (>60); Estimated Creatinine Clearance 57.19 ml/min; Glucose 88 mg/dL (74-106); Magnesium 2.1 mg/dL (1.6-2.6); Phosphorus 2.8 mg/dL (2.5-4.9); Potassium 3.9 mmol/L (3.5-5.1); Sodium Level 141 mmol/L (136-145)
--- NOTE | 2023-05-12 10:02 | PCM.PROGNOTE ---
Subjective Subjective Patient seen and examined. HE became bradycardic overnight with HR going down to the 30s. HE denied any dizziness, lightheadedness, nausea, vomiting or any other complaints. Review of systems is otherwise negative. HE is upset because he is NPO and hasnt had anything to eat, though he has a clear diet ordered. REview of systems is otherwise negative. He has remained hemodynamically stable. Objective Data Objective Data Vital Signs: Vital Signs Temp Pulse Resp BP Pulse Ox O2 Del Method 98.1 F 37 L 18 148/82 H 95 Room Air 05/12/23 03:00 05/12/23 03:00 05/12/23 03:00 05/12/23 03:00 05/12/23 03:00 05/12/23 03:00 Oxygen Delivery Method Room Air Weight: 171 lb 11.841 oz Body Mass Index (BMI) 24.6 Intake & Output: Intake and Output for Last 24 Hours 05/10/23 05/11/23 05/12/23 23:59 23:59 23:59 Intake Total 3113.00 / 3233.00 3089.33 / 3089.33 1421.6633 / 1421.6633 Output Total 700 / 700 1225 / 1225 Balance 2413.00 / 2533.00 1864.33 / 1864.33 1421.6633 / 1421.6633 Lab / Micro Data 05/12/23 05:30 05/12/23 05:30 Labs: Laboratory Results - last 24 hr 05/12/23 05:30: WBC 5.2, RBC 4.35 L, Hgb 13.1, Hct 40.0, MCV 92.0, MCH 30.1, MCHC 32.8, RDW Std Deviation 44.6 H, RDW Coeff of Navneet 13.1, Plt Count 175, MPV 9.1, Immature Gran % (Auto) 0.200, Neut % (Auto) 66.2, Lymph % (Auto) 18.6 L, [place] % (Auto) 10.2 H, Eos % (Auto) 4.0, Baso % (Auto) 0.8, Absolute Neuts (auto) 3.5, Absolute Lymphs (auto) 0.97, Nucleated RBC % 0, Sodium 141, Potassium 3.9, Chloride 111 H, Carbon Dioxide 24.0, Anion Gap 6, BUN 13, Creatinine 1.17, Estim Creat Clear Calc 57.19, Est GFR (MDRD) Af Amer 78, Est GFR (MDRD) Non-Af 65, BUN/Creatinine Ratio 11.1, Glucose 88, Calcium 8.3 L, Phosphorus 2.8, Magnesium 2.1 Rhythm Strip Rhythm Strip: Sinus Rhythm Rate: 76 Ectopy: None Physical Exam Const alert, oriented x3 and no apparent distress General Appearance: cooperative and well developed HEENT normocephalic, head/scalp atraumatic and hearing grossly normal bilaterally Eyes PERRL, EOMs intact bilaterally and conjunctivae normal Neck no lymphadenopathy and supple Lymph Lymphatic: no lymphadenopathy noted and no lymphedema noted Resp normal respiratory effort, normal air movement, no retractions, no use of accessory muscles and clear to auscultation bilaterally Cardio regular rhythm, S1 normal heart sound, S2 normal heart sound and no murmurs Cardio Narrative: bradycardic GI normal to inspection, nondistended, normoactive bowel sounds, soft to palpation and non-tender GI Narrative: NG tube removed Extremity normal to inspection, full ROM, normal capillary refill and no clubbing, cyanosis or edema Skin General Skin Exam: no breakdown Neuro oriented x3, CN's II-XII intact bilaterally, moves all extremities and no focal motor deficits Sensorium / Orientation: awake and alert Motor Exam: strength 5/5 throughout Psych thought process normal, cooperative and affect normal Appearance: appropriate Assessment & Plan Assessment/Plan (1) Small bowel obstruction: PLAN: Plan #Small bowel obstruction has had history of recurrent small bowel obstruction. Likely due to adhesions from right hemicolectomy for Crohn's disease several decades ago CT abdomen showed small bowel obstruction in the distal ileum primary service is general surgery NG tube is out. On clears and ice chips management as per primary team general surgery he is for MR enterography tomorrow per general surgery #Afib with RVR RVR has resolved. On atenolol was bradycardic overnight. Atenolol held. cardiology on board. 2D echo showed EF of 60% with stage I diastolic dysfunction and no regional wall motion abnormalities seen. per cards, to hold off on anticoagulation due to GI issues; once the #Hypertension: on lisinopril and nifedipine as well as atenolol #CKD 3: at baseline. Cr is 1.16. #CAD: s/p stents. on aspirin DVT prophylaxis; SQ lovenox 40mg daily Charges/Coding Visit Charges Inpatient E&M: 59961 Subs Hosp L2
[2023-05-12 15:15] VITALS: BP 163/84; PULSE 53; RESP 18; TEMP 36.6; O2SAT 98
[2023-05-12 15:25] VITALS: BP 163/84; PULSE 54
[2023-05-12] MEDS: hydrALAZINE 20 MG/ML Vial 10 MG IV (15:25)
[2023-05-12 16:24] VITALS: BP 131/76; PULSE 63; RESP 12; TEMP 36.6; O2SAT 97
[2023-05-12 21:00] VITALS: BP 160/84; PULSE 64; RESP 16; TEMP 36.7; O2SAT 96
[2023-05-13 03:15] VITALS: BP 162/80; PULSE 56; RESP 16; TEMP 36.7; O2SAT 95
[2023-05-13 04:40] LABS: Absolute Lymphocyte Count 0.93 X10^3/uL (0.83-4.51); Basophil# 0.05 X10^3/uL; Basophil% 1.1 % (0-1); Eosinophil# 0.23 X10^3/uL; Eosinophils% 4.9 % (0-5); Hematocrit 40.8 % (40-54); Hemoglobin 13.5 g/dL (13.0-16.5); Lymphocyte # 0.93 X10^3/ul (0.83-4.51); Lymphocyte % 19.7 % (19-41); Mean Corp Hgb Conc 33.1 g/dL (32-36); Mean Corpuscular Hgb 30.5 pg (27.0-32.0); Mean Corpuscular Volume 92.1 fL (80-94); Mean Platelet Vol. 9.2 fl (6.2-12.0); Monocyte# 0.47 X10^3/uL; NRBC Flagged by Analyzer 0 % (0-5); Neutrophil # 3.01 X10^3/uL (2.7-7.7); Neutrophil % 63.9 % (47-70); Platelet Count 178 K/mm3 (150-450); RBC Distribution Width CV 13.2 % (11.6-14.6); RBC Distribution Width SD 45.2 fl (35.1-43.9); Red Blood Count 4.43 M/mm3 (4.6-6.2); White Blood Count 4.7 K/mm3 (4.4-11.0)
[2023-05-13] MEDS: 0.9% Normal Saline 1,000 ML 125 ML IV ×3 (05:11→21:21)
[2023-05-13 05:13] LABS: Anion Gap 6 (5-15); BUN 12 mg/dL (7-18); BUN/Creat Ratio 10.3 RATIO (10-20); Calcium,Total 8.3 mg/dL (8.5-10.1); Chloride 114 mmol/L (98-107); Creatinine, Serum 1.16 mg/dL (0.70-1.30); EST Glomerular Filtration Rate 65 mL/min (>60); Est Glom Filt Rate - Afr Amer 79 mL/min (>60); Estimated Creatinine Clearance 57.69 ml/min; Glucose 96 mg/dL (74-106); Phosphorus 2.6 mg/dL (2.5-4.9); Potassium 3.8 mmol/L (3.5-5.1); Sodium Level 142 mmol/L (136-145)
--- NOTE | 2023-05-13 07:22 | PCM.PN.SRG ---
Subjective Subjective Patient seen and examined during AM rounds. He is found resting quietly in bed. He states that he tolerated his liquid diet until midnight when it was held from him in anticipation of this morning's procedures. Expresses an appetite this morning, but states he understands and wants to get some answers about his condition. He denies any present nausea or abdominal discomfort. Objective Data Objective Data Vital Signs: Vital Signs Temp Pulse Resp BP Pulse Ox O2 Del Method 98.0 F 56 L 16 162/80 H 95 Room Air 05/13/23 03:15 05/13/23 03:15 05/13/23 03:15 05/13/23 03:15 05/13/23 03:15 05/13/23 03:15 Oxygen Delivery Method Room Air Weight: 171 lb 11.841 oz Body Mass Index (BMI) 24.6 Intake & Output: Intake and Output for Last 24 Hours 05/11/23 05/12/23 05/13/23 23:59 23:59 23:59 Intake Total 3089.33 / 3089.33 4756.2533 / 4756.2533 793.75 / 793.75 Output Total 1225 / 1225 500 / 500 1425 / 1425 Balance 1864.33 / 1864.33 4256.2533 / 4256.2533 -631.25 / -631.25 Lab / Micro Data 05/13/23 04:05 05/13/23 04:05 Labs: Laboratory Results - last 24 hr 05/12/23 05:30: Sodium 141, Potassium 3.9, Chloride 111 H, Carbon Dioxide 24.0, Anion Gap 6, BUN 13, Creatinine 1.17, Estim Creat Clear Calc 57.19, Est GFR (MDRD) Af Amer 78, Est GFR (MDRD) Non-Af 65, BUN/Creatinine Ratio 11.1, Glucose 88, Calcium 8.3 L, Phosphorus 2.8, Magnesium 2.1 05/13/23 04:05: WBC 4.7, RBC 4.43 L, Hgb 13.5, Hct 40.8, MCV 92.1, MCH 30.5, MCHC 33.1, RDW Std Deviation 45.2 H, RDW Coeff of Navneet 13.2, Plt Count 178, MPV 9.2, Immature Gran % (Auto) 0.400, Neut % (Auto) 63.9, Lymph % (Auto) 19.7, [place] % (Auto) 10.0, Eos % (Auto) 4.9, Baso % (Auto) 1.1 H, Absolute Neuts (auto) 3.0, Absolute Lymphs (auto) 0.93, Nucleated RBC % 0, Sodium 142, Potassium 3.8, Chloride 114 H, Carbon Dioxide 22.0, Anion Gap 6, BUN 12, Creatinine 1.16, Estim Creat Clear Calc 57.69, Est GFR (MDRD) Af Amer 79, Est GFR (MDRD) Non-Af 65, BUN/Creatinine Ratio 10.3, Glucose 96, Calcium 8.3 L, Phosphorus 2.6, Magnesium 2.0 Rhythm Strip Rhythm Strip: Sinus Rhythm Rate: 76 Ectopy: None Physical Exam Const oriented x3 and no apparent distress Resp normal respiratory effort GI GI Narrative: Nondistended, flaccid, nontender to palpation x4 quadrants Assessment & Plan Assessment/Plan (1) Small bowel obstruction: PLAN: Patient is a 73-year-old male with history of Crohn's disease status post right hemicolectomy and subsequent small bowel obstructions who presents with signs and symptoms of another small bowel obstruction. Patient has experienced return of bowel function and technically passed a small bowel follow-through, however, there was persistent dilatation of several mid jejunal loops so his return to a diet did not occur until yesterday. Patient reports that he did tolerate this advancement, but has been made n.p.o. in anticipation of today's enterography. Per gastroenterology, this would be the best imaging to try to establish the length of ileal segment that appears to be contributing obstructive physiology. Neuro: As needed Dilaudid Pulm/CV: I-S, A-fib and hypertension management per cardiology who recommends resumption of beta-sammy FEN/GI: Trend electrolytes, BRYSON resolved, continue n.p.o. status and follow-up MR enterography : No current issues apart from BRYSON discussed above Heme/ID: Hemoglobin lower now likely on account of rehydration via intravenous fluid support, trend CBC, no indication for antibiotics at this time Endo: No current issues Proph: Apply SCDs Dispo: Continue PCU stay Charges/Coding Visit Charges Inpatient E&M: 82702 Subs Hosp L2
--- NOTE | 2023-05-13 08:36 | MRI_ITS ---
MR Enterography Abdomen/Pelvis WO/W Contrast 05/13/2023 2:29 PM COMPARISON: CT 05/09/2023 CLINICAL HISTORY: small bowel obstruction, pt had hx Chron''s and bowel resection at age 16 TECHNIQUE: Following oral administration of enteric contrast and administration of glucagon, multiplanar T1 and T2 weighted images along with dynamic post-gadolinium images were obtained through the abdomen and pelvis. 15 cc of IV Clariscan was used. FINDINGS: GI Tract: Evidence of right hemicolectomy with ileocolic anastomosis in the anterior right mid abdomen. Few short segment loops of small bowel demonstrate circumferential wall thickening with mild mucosal hyperenhancement. No definite stricture or fistula. There is short segment mucosal hyperenhancement and wall thickening of the sigmoid colon. There are multiple diverticula. No drainable fluid collections. Liver: Unremarkable Gallbladder: Few small intraluminal stones. Spleen: Stable 2.6 cm x 2.1 cm partially calcified mass in the anterior aspect of the spleen. Pancreas: Unremarkable Adrenal Glands: Unremarkable Kidneys: Few small subcentimeter T2 hyperintense cysts bilaterally. Reproductive: Mild prostatomegaly. Bladder: Unremarkable Lymphadenopathy: Absent Ascites: Absent Bones: No suspicious lesions. Diffuse degenerative changes of the spine. MRI/Enterography Abd/Pel IMPRESSION: Limited study due to suboptimal distention of small bowel. Despite limitations:
[2023-05-13 09:05] VITALS: BP 179/85; PULSE 60
[2023-05-13] MEDS: hydrALAZINE 20 MG/ML Vial 10 MG IV (09:05)
[2023-05-13] MEDS: 0.9% Saline Lock 10 ML Syringe IV ×2 (09:05→14:52)
[2023-05-13 09:15] VITALS: BP 177/87; PULSE 54; RESP 18; TEMP 36.6; O2SAT 99
--- NOTE | 2023-05-13 10:52 | PN.CARD_ITS ---
Subjective Subjective Patient seen and evaluated. Remaining in sinus rhythm. Objective Data Vital Signs: Vital Signs Temp Pulse Resp BP Pulse Ox O2 Del Method 98.0 F 60 16 179/85 H 95 Room Air 05/13/23 03:15 05/13/23 09:05 05/13/23 03:15 05/13/23 09:05 05/13/23 03:15 05/13/23 03:15 Oxygen Delivery Method Room Air Weight: 171 lb 11.841 oz Body Mass Index (BMI) 24.6 Intake & Output: Intake and Output for Last 24 Hours 05/11/23 05/12/23 05/13/23 23:59 23:59 23:59 Intake Total 3089.33 / 3089.33 4756.2533 / 4756.2533 793.75 / 793.75 Output Total 1225 / 1225 500 / 500 1425 / 1425 Balance 1864.33 / 1864.33 4256.2533 / 4256.2533 -631.25 / -631.25 Lab / Micro Data 05/13/23 04:05 05/13/23 04:05 Labs: Laboratory Results - last 24 hr 05/13/23 04:05: WBC 4.7, RBC 4.43 L, Hgb 13.5, Hct 40.8, MCV 92.1, MCH 30.5, MCHC 33.1, RDW Std Deviation 45.2 H, RDW Coeff of Navneet 13.2, Plt Count 178, MPV 9.2, Immature Gran % (Auto) 0.400, Neut % (Auto) 63.9, Lymph % (Auto) 19.7, [place] % (Auto) 10.0, Eos % (Auto) 4.9, Baso % (Auto) 1.1 H, Absolute Neuts (auto) 3.0, Absolute Lymphs (auto) 0.93, Nucleated RBC % 0, Sodium 142, Potassium 3.8, Chloride 114 H, Carbon Dioxide 22.0, Anion Gap 6, BUN 12, Creatinine 1.16, Estim Creat Clear Calc 57.69, Est GFR (MDRD) Af Amer 79, Est GFR (MDRD) Non-Af 65, BUN/Creatinine Ratio 10.3, Glucose 96, Calcium 8.3 L, Phosphorus 2.6, Magnesium 2.0 Rhythm Strip Rhythm Strip: Sinus Rhythm Rate: 76 Ectopy: None Cardiology Labs/Tests 05/13/23 04:05: WBC 4.7, RBC 4.43 L, Hgb 13.5, Hct 40.8, MCV 92.1, MCH 30.5, MCHC 33.1, Plt Count 178, MPV 9.2, Immature Gran % (Auto) 0.400, Neut % (Auto) 63.9, Lymph % (Auto) 19.7, [place] % (Auto) 10.0, Eos % (Auto) 4.9, Baso % (Auto) 1.1 H, Absolute Neuts (auto) 3.0, Nucleated RBC % 0, Sodium 142, Potassium 3.8, Chloride 114 H, Carbon Dioxide 22.0, Anion Gap 6, BUN 12, Creatinine 1.16, Est GFR (MDRD) Af Amer 79, Est GFR (MDRD) Non-Af 65, BUN/Creatinine Ratio 10.3, Glucose 96, Calcium 8.3 L, Phosphorus 2.6, Magnesium 2.0 Rhythm: EKG: ECHO: Stress Test: Cardiac Cath: PCI: CT Surgery: Holter monitor: EPS: PPM: CXR: Chest CT Scan: Radiography Diagnostic Testing: Radiology Impression Small Bowel X-Ray 05/10/23 08:50 IMPRESSION: Contrast is seen within the colon down to the rectum on the 6 hour examination. Residual dilatation of central small bowel loops. This may represent ileus. Electronically Signed: Yanick Stokes MD at 8:09 EDT , Physical Exam Const alert, oriented x3 and no apparent distress General Appearance: cooperative and well developed HEENT normocephalic, head/scalp atraumatic and hearing grossly normal bilaterally Eyes PERRL, EOMs intact bilaterally and conjunctivae normal Neck no lymphadenopathy and supple Lymph Lymphatic: no lymphadenopathy noted and no lymphedema noted Resp normal respiratory effort, normal air movement, no retractions, no use of accessory muscles and clear to auscultation bilaterally Cardio regular rhythm, S1 normal heart sound, S2 normal heart sound and no murmurs Cardio Narrative: bradycardic GI normal to inspection, nondistended, normoactive bowel sounds, soft to palpation and non-tender GI Narrative: NG tube removed Extremity normal to inspection, full ROM, normal capillary refill and no clubbing, cyanosis or edema Skin General Skin Exam: no breakdown Neuro oriented x3, CN's II-XII intact bilaterally, moves all extremities and no focal motor deficits Sensorium / Orientation: awake and alert Motor Exam: strength 5/5 throughout Psych thought process normal, cooperative and affect normal Appearance: appropriate Assessment & Plan Assessment/Plan (1) Coronary artery disease: QUALIFIERS: Coronary Disease-Associated Artery/Lesion type: bypass graft [place] vs. transplanted heart: [place] heart Associated angina: without angina Qualified Code(s): I25.810 - Atherosclerosis of coronary artery bypass graft(s) without angina pectoris PLAN: He does have a history of known coronary artery disease status post coronary bypass surgery remotely. At this time he is doing well he has not had any cardiac enzyme abnormality to suggest ischemia. The plan is to continue to follow him. * His echocardiogram demonstrated preserved left ventricular systolic function. * Further testing would be performed as an outpatient. (2) Hypertension: QUALIFIERS: Hypertension type: primary hypertension Qualified Code(s): I10 - Essential (primary) hypertension PLAN: He will continue with his beta-sammy at this time. His echo demonstrated preserved ejection fraction. I would like to resume his atenolol at 50 mg. He is hesitant to take it twice daily so we will see how he does with the 50 mg today and then advance as necessary. He will also remain on the amlodipine (3) Atrial fibrillation: QUALIFIERS: Atrial fibrillation type: paroxysmal Qualified Code(s): I48.0 - Paroxysmal atrial fibrillation PLAN: He presents with an episode of atrial fibrillation likely stress mediated. I doubt this is ischemic. He had spontaneously converted back to sinus rhythm. But he is back in A-fib. due to his GI issues at this time I will try away from anticoagulation. * Will keep him on the atenolol at 50 mg daily. * Will hold off on anticoagulation for now.
[2023-05-13] MEDS: Glucagon 1 MG/ML Syringe IV (14:52)
[2023-05-13 15:15] VITALS: BP 155/79; PULSE 57; RESP 15; TEMP 36.8; O2SAT 99
[2023-05-13] MEDS: Atenolol 50 MG Tablet PO (15:48)
[2023-05-13] MEDS: Enoxaparin 40 MG/0.4 ML Syringe SC (15:48)
[2023-05-13] MEDS: amLODIPine 5 MG Tablet PO (15:48)
--- NOTE | 2023-05-13 20:43 | PCM.PN.HOSP ---
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 Patient states that he is passing flatus, he does not complain of any severe abdominal pain. Objective Data Objective Data Vital Signs: Vital Signs Temp Pulse Resp BP Pulse Ox O2 Del Method 98.2 F 57 L 15 155/79 H 99 Room Air 05/13/23 15:15 05/13/23 15:15 05/13/23 15:15 05/13/23 15:15 05/13/23 15:15 05/13/23 16:00 Oxygen Delivery Method Room Air Weight: 77.9 kg Body Mass Index (BMI) 24.6 Intake & Output: Intake and Output for Last 24 Hours 05/11/23 05/12/23 05/13/23 23:59 23:59 23:59 Intake Total 3089.33 / 3089.33 4756.2533 / 4756.2533 2203.75 / 2203.75 Output Total 1225 / 1225 500 / 500 2825 / 2825 Balance 1864.33 / 1864.33 4256.2533 / 4256.2533 -621.25 / -621.25 Lab / Micro Data 05/13/23 04:05 05/13/23 04:05 Labs: Laboratory Results - last 24 hr 05/13/23 04:05: WBC 4.7, RBC 4.43 L, Hgb 13.5, Hct 40.8, MCV 92.1, MCH 30.5, MCHC 33.1, RDW Std Deviation 45.2 H, RDW Coeff of Navneet 13.2, Plt Count 178, MPV 9.2, Immature Gran % (Auto) 0.400, Neut % (Auto) 63.9, Lymph % (Auto) 19.7, [place] % (Auto) 10.0, Eos % (Auto) 4.9, Baso % (Auto) 1.1 H, Absolute Neuts (auto) 3.0, Absolute Lymphs (auto) 0.93, Nucleated RBC % 0, Sodium 142, Potassium 3.8, Chloride 114 H, Carbon Dioxide 22.0, Anion Gap 6, BUN 12, Creatinine 1.16, Estim Creat Clear Calc 57.69, Est GFR (MDRD) Af Amer 79, Est GFR (MDRD) Non-Af 65, BUN/Creatinine Ratio 10.3, Glucose 96, Calcium 8.3 L, Phosphorus 2.6, Magnesium 2.0 Radiography Diagnostic Testing: Radiology Impression Small Bowel X-Ray 05/10/23 08:50 IMPRESSION: Contrast is seen within the colon down to the rectum on the 6 hour examination. Residual dilatation of central small bowel loops. This may represent ileus. Electronically Signed: Yanick Stokes MD at 8:09 EDT , Rhythm Strip Rhythm Strip: Sinus Rhythm Rate: 76 Ectopy: None Physical Exam Const alert, oriented x3, no apparent distress, average body habitus and healthy appearing General Appearance: cooperative, well kempt and well developed Orientation / Consciousness: awake, oriented to person, oriented to place and oriented to time HEENT normocephalic, head/scalp atraumatic and moist oral mucous membranes Eyes PERRL, EOMs intact bilaterally and conjunctivae normal Neck supple, no JVD, thyroid normal and no carotid bruits General: trachea midline Resp normal respiratory effort, no retractions, no use of accessory muscles and clear to auscultation bilaterally Auscultation: Negative for rales, rhonchi or wheezes Cardio regular rate, regular rhythm, S1 normal heart sound, S2 normal heart sound, no murmurs, no rub and no gallops GI soft to palpation, non-tender and non-distended Auscultation: hypoactive bowel sounds Extremity no clubbing, cyanosis or edema Skin no rashes or lesions noted General Skin Exam: no breakdown Neuro oriented x3, CN's II-XII intact bilaterally, moves all extremities, no focal motor deficits and no sensory deficits noted Sensorium / Orientation: awake, alert, oriented to person, oriented to place and oriented to time Speech: speech normal Psych affect normal Assessment & Plan Assessment/Plan (1) Small bowel obstruction: PLAN: Plan 1. Small bowel obstruction-patient underwent an MRI of the abdomen today, results are pending at this time, general surgery is participating in his care #2 paroxysmal atrial fibrillation-remains in sinus rhythm at this time, patient states that he does not want to take anticoagulation #3 coronary artery disease-stable at this time with preserved left ventricular systolic function #4 essential hypertension-patient's remain on his present medication Total clinical time spent by myself addressing patient's medical issues, reviewing all of his data, and collaborating with patient's care team: 35 minutes Charges/Coding Visit Charges Inpatient E&M: 52889 Subs Hosp L2
[2023-05-13 21:01] VITALS: BP 153/76; PULSE 62; RESP 16; TEMP 36.8; O2SAT 96
[2023-05-14 03:00] VITALS: BP 141/80; PULSE 57; RESP 16; TEMP 36.8; O2SAT 96
[2023-05-14] MEDS: 0.9% Normal Saline 1,000 ML 125 ML IV ×3 (05:26→21:14)
[2023-05-14 06:09] LABS: Absolute Neutrophil Count 3.1 X10^3/uL (2.0-7.7); Basophil# 0.03 X10^3/uL; Basophil% 0.7 % (0-1); Eosinophil# 0.17 X10^3/uL; Eosinophils% 3.7 % (0-5); Hematocrit 40.9 % (40-54); Lymphocyte % 17.6 % (19-41); Mean Corp Hgb Conc 34.2 g/dL (32-36); Mean Corpuscular Volume 90.5 fL (80-94); Mean Platelet Vol. 9.4 fl (6.2-12.0); Monocyte# 0.45 X10^3/uL; Monocyte% 9.9 % (0-10); NRBC Flagged by Analyzer 0 % (0-5); Neutrophil # 3.07 X10^3/uL (2.7-7.7); Neutrophil % 67.7 % (47-70); Platelet Count 191 K/mm3 (150-450); RBC Distribution Width CV 13.2 % (11.6-14.6); Red Blood Count 4.52 M/mm3 (4.6-6.2); White Blood Count 4.5 K/mm3 (4.4-11.0)
[2023-05-14 09:00] VITALS: BP 142/68; PULSE 66; RESP 18; TEMP 37; O2SAT 97
[2023-05-14] MEDS: Enoxaparin 40 MG/0.4 ML Syringe SC (10:12)
--- NOTE | 2023-05-14 10:21 | PN.CARD_ITS ---
Subjective Subjective Patient seen and evaluated. Appears to doing better this morning. Objective Data Vital Signs: Vital Signs Temp Pulse Resp BP Pulse Ox O2 Del Method 98.6 F 66 18 142/68 H 97 Room Air 05/14/23 09:00 05/14/23 09:00 05/14/23 09:00 05/14/23 09:00 05/14/23 09:00 05/14/23 09:00 Oxygen Delivery Method Room Air Weight: 171 lb 11.841 oz Body Mass Index (BMI) 24.6 Intake & Output: Intake and Output for Last 24 Hours 05/12/23 05/13/23 05/14/23 23:59 23:59 23:59 Intake Total 4756.2533 / 4756.2533 3203.75 / 3203.75 1000 / 1000 Output Total 500 / 500 2825 / 2825 925 / 925 Balance 4256.2533 / 4256.2533 378.75 / 378.75 75 / 75 Lab / Micro Data 05/14/23 05:29 05/13/23 04:05 Labs: Laboratory Results - last 24 hr 05/14/23 05:29: WBC 4.5, RBC 4.52 L, Hgb 14.0, Hct 40.9, MCV 90.5, MCH 31.0, MCHC 34.2, RDW Std Deviation 44.0 H, RDW Coeff of Navneet 13.2, Plt Count 191, MPV 9.4, Immature Gran % (Auto) 0.400, Neut % (Auto) 67.7, Lymph % (Auto) 17.6 L, [place] % (Auto) 9.9, Eos % (Auto) 3.7, Baso % (Auto) 0.7, Absolute Neuts (auto) 3.1, Absolute Lymphs (auto) 0.80 L, Nucleated RBC % 0 Rhythm Strip Rhythm Strip: Sinus Rhythm Rate: 76 Ectopy: None Cardiology Labs/Tests 05/14/23 05:29: WBC 4.5, RBC 4.52 L, Hgb 14.0, Hct 40.9, MCV 90.5, MCH 31.0, MCHC 34.2, Plt Count 191, MPV 9.4, Immature Gran % (Auto) 0.400, Neut % (Auto) 67.7, Lymph % (Auto) 17.6 L, [place] % (Auto) 9.9, Eos % (Auto) 3.7, Baso % (Auto) 0.7, Absolute Neuts (auto) 3.1, Nucleated RBC % 0 Rhythm: EKG: ECHO: Stress Test: Cardiac Cath: PCI: CT Surgery: Holter monitor: EPS: PPM: CXR: Chest CT Scan: Radiography Diagnostic Testing: Radiology Impression Enterography MRI 05/13/23 08:36 IMPRESSION: Limited study due to suboptimal distention of small bowel. Despite limitations: Few short segment loops of small bowel demonstrate circumferential wall thickening with mild mucosal hyperenhancement could represent a mild acute flare of Crohn''s disease. No definite stricture or fistula, however evaluation is limited due to suboptimal distention of the bowel. Cannot determine transition point of small bowel obstruction on this scan either. Acute sigmoid diverticulitis. No focal fluid collection or free air. Other chronic findings as above. Electronically Signed: Wood Varma MD at 21:46 EDT , Physical Exam Const alert, oriented x3 and no apparent distress General Appearance: cooperative HEENT hearing grossly normal bilaterally Head and Scalp: atraumatic Eyes EOMs intact bilaterally Neck General: normal visual inspection Chest inspection of chest normal and palpation of chest normal Resp normal respiratory effort Auscultation: clear to auscultation bilaterally Cardio regular rate, regular rhythm, S1 normal heart sound and S2 normal heart sound Jugular Venous Distention: JVD GI normal to inspection, nondistended, normoactive bowel sounds Extremity normal capillary refill and no pedal edema Peripheral Pulses: Yes pulses 2+ throughout and femoral pulses present Skin no rashes or lesions noted Neuro oriented x3 and CN's II-XII intact bilaterally Psych Appearance: grossly normal and appropriate Assessment & Plan Assessment/Plan (1) Coronary artery disease: QUALIFIERS: Coronary Disease-Associated Artery/Lesion type: bypass graft [place] vs. transplanted heart: [place] heart Associated angina: without angina Qualified Code(s): I25.810 - Atherosclerosis of coronary artery bypass graft(s) without angina pectoris PLAN: He does have a history of known coronary artery disease status post coronary bypass surgery remotely. At this time he is doing well he has not had any cardiac enzyme abnormality to suggest ischemia. The plan is to continue to follow him. * His echocardiogram demonstrated preserved left ventricular systolic function. * Further testing would be performed as an outpatient. (2) Hypertension: QUALIFIERS: Hypertension type: primary hypertension Qualified Code(s): I10 - Essential (primary) hypertension PLAN: He will continue with his beta-sammy at this time. His echo demonstrated preserved ejection fraction. I would like to resume his atenolol at 50 mg. He is hesitant to take it twice daily so we will see how he does with the 50 mg today and then advance as necessary. He will also remain on the amlodipine (3) Atrial fibrillation: QUALIFIERS: Atrial fibrillation type: paroxysmal Qualified Code(s): I48.0 - Paroxysmal atrial fibrillation PLAN: He presents with an episode of atrial fibrillation likely stress mediated. I doubt this is ischemic. He had spontaneously converted back to sinus rhythm. But he is back in A-fib. due to his GI issues at this time I will try away from anticoagulation. * Will keep him on the atenolol at 50 mg daily. * Will hold off on anticoagulation for now.
[2023-05-14] MEDS: Atenolol 50 MG Tablet PO (10:23)
[2023-05-14] MEDS: amLODIPine 5 MG Tablet PO (10:24)
--- NOTE | 2023-05-14 10:48 | PN.SURG_ITS ---
Subjective Subjective Patient seen and examined during AM rounds. He is found sitting up in bed. He denies any acute distress and denies any difficulty with his advancement to full liquids yesterday. In fact, he requests further advancement to more regular food today. Objective Data Objective Data Vital Signs: Vital Signs Temp Pulse Resp BP Pulse Ox O2 Del Method 98.6 F 66 18 142/68 H 97 Room Air 05/14/23 09:00 05/14/23 09:00 05/14/23 09:00 05/14/23 09:00 05/14/23 09:00 05/14/23 09:00 Oxygen Delivery Method Room Air Weight: 171 lb 11.841 oz Body Mass Index (BMI) 24.6 Intake & Output: Intake and Output for Last 24 Hours 05/12/23 05/13/23 05/14/23 23:59 23:59 23:59 Intake Total 4756.2533 / 4756.2533 3203.75 / 3203.75 1110 / 1110 Output Total 500 / 500 2825 / 2825 925 / 925 Balance 4256.2533 / 4256.2533 378.75 / 378.75 185 / 185 Lab / Micro Data 05/14/23 05:29 05/13/23 04:05 Labs: Laboratory Results - last 24 hr 05/14/23 05:29: WBC 4.5, RBC 4.52 L, Hgb 14.0, Hct 40.9, MCV 90.5, MCH 31.0, MCHC 34.2, RDW Std Deviation 44.0 H, RDW Coeff of Navneet 13.2, Plt Count 191, MPV 9.4, Immature Gran % (Auto) 0.400, Neut % (Auto) 67.7, Lymph % (Auto) 17.6 L, [place] % (Auto) 9.9, Eos % (Auto) 3.7, Baso % (Auto) 0.7, Absolute Neuts (auto) 3.1, Absolute Lymphs (auto) 0.80 L, Nucleated RBC % 0 Radiography Diagnostic Testing: Radiology Impression Enterography MRI 05/13/23 08:36 IMPRESSION: Limited study due to suboptimal distention of small bowel. Despite limitations: Few short segment loops of small bowel demonstrate circumferential wall thickening with mild mucosal hyperenhancement could represent a mild acute flare of Crohn''s disease. No definite stricture or fistula, however evaluation is limited due to suboptimal distention of the bowel. Cannot determine transition point of small bowel obstruction on this scan either. Acute sigmoid diverticulitis. No focal fluid collection or free air. Other chronic findings as above. Electronically Signed: Wood Varma MD at 21:46 EDT , Rhythm Strip Rhythm Strip: Sinus Rhythm Rate: 76 Ectopy: None Physical Exam Const oriented x3 and no apparent distress Resp normal respiratory effort GI GI Narrative: Nondistended soft, nontender to palpation x4 quadrants Assessment & Plan Assessment/Plan (1) Small bowel obstruction: PLAN: Patient is a 73-year-old male with history of Crohn's disease status post right hemicolectomy and subsequent small bowel obstructions who presents with signs and symptoms of another small bowel obstruction. Patient has experienced return of bowel function and tolerated a diet advancement to liquids. He completed MR enterography yesterday which was read by radiology last evening as consistent with possible mild Crohn's flare. We are awaiting reevaluation with gastroenterology, but I have received the go-ahead to advance patient's diet as tolerated and will do so this morning. Neuro: Discontinue Dilaudid Pulm/CV: I-S, A-fib and hypertension management per cardiology who recommends resumption of beta-sammy FEN/GI: Trend electrolytes, BRYSON resolved, advance to soft low residue diet : No current issues apart from BRYSON discussed above Heme/ID: No current issues Endo: No current issues Proph: Apply SCDs Dispo: Continue PCU stay with evaluation of tolerance of diet. Anticipate possible discharge to home tomorrow Charges/Coding Visit Charges Inpatient E&M: 86565 Subs Hosp L2
[2023-05-14 15:00] VITALS: BP 123/64; PULSE 57; RESP 18; TEMP 36.9; O2SAT 98
--- NOTE | 2023-05-14 17:22 | PN.HOSP_ITS ---
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 Patient is having bowel movements and is passing flatus. I talked with general surgery about his care. Objective Data Objective Data Vital Signs: Vital Signs Temp Pulse Resp BP Pulse Ox O2 Del Method 98.5 F 57 L 18 123/64 H 98 Room Air 05/14/23 15:00 05/14/23 15:00 05/14/23 15:00 05/14/23 15:00 05/14/23 15:00 05/14/23 15:00 Oxygen Delivery Method Room Air Weight: 77.9 kg Body Mass Index (BMI) 24.6 Intake & Output: Intake and Output for Last 24 Hours 05/12/23 05/13/23 05/14/23 23:59 23:59 23:59 Intake Total 4756.2533 / 4756.2533 3203.75 / 3203.75 2110 / 2110 Output Total 500 / 500 2825 / 2825 1325 / 1325 Balance 4256.2533 / 4256.2533 378.75 / 378.75 785 / 785 Lab / Micro Data 05/14/23 05:29 05/13/23 04:05 Labs: Laboratory Results - last 24 hr 05/14/23 05:29: WBC 4.5, RBC 4.52 L, Hgb 14.0, Hct 40.9, MCV 90.5, MCH 31.0, MCHC 34.2, RDW Std Deviation 44.0 H, RDW Coeff of Navneet 13.2, Plt Count 191, MPV 9.4, Immature Gran % (Auto) 0.400, Neut % (Auto) 67.7, Lymph % (Auto) 17.6 L, [place] % (Auto) 9.9, Eos % (Auto) 3.7, Baso % (Auto) 0.7, Absolute Neuts (auto) 3. 1, Absolute Lymphs (auto) 0.80 L, Nucleated RBC % 0 Radiography Diagnostic Testing: Radiology Impression Enterography MRI 05/13/23 08:36 IMPRESSION: Limited study due to suboptimal distention of small bowel. Despite limitations: Few short segment loops of small bowel demonstrate circumferential wall thickening with mild mucosal hyperenhancement could represent a mild acute flare of Crohn''s disease. No definite stricture or fistula, however evaluation is limited due to suboptimal distention of the bowel. Cannot determine transition point of small bowel obstruction on this scan either. Acute sigmoid diverticulitis. No focal fluid collection or free air. Other chronic findings as above. Electronically Signed: Wood Varma MD at 21:46 EDT , Rhythm Strip Rhythm Strip: Sinus Rhythm Rate: 76 Ectopy: None Physical Exam Narrative alert, oriented x3, no apparent distress, average body habitus and healthy appearing General Appearance: cooperative, well kempt and well developed Orientation / Consciousness: awake, oriented to person, oriented to place and oriented to time HEENT normocephalic, head/scalp atraumatic and moist oral mucous membranes Eyes PERRL, EOMs intact bilaterally and conjunctivae normal Neck supple, no JVD, thyroid normal and no carotid bruits General: trachea midline Resp normal respiratory effort, no retractions, no use of accessory muscles and clear to auscultation bilaterally Auscultation: Negative for rales, rhonchi or wheezes Cardio regular rate, regular rhythm, S1 normal heart sound, S2 normal heart sound, no murmurs, no rub and no gallops GI soft to palpation, non-tender and non-distended Auscultation: hypoactive bowel sounds Extremity no clubbing, cyanosis or edema Skin no rashes or lesions noted General Skin Exam: no breakdown Neuro oriented x3, CN's II-XII intact bilaterally, moves all extremities, no focal motor deficits and no sensory deficits noted Sensorium / Orientation: awake, alert, oriented to person, oriented to place and oriented to time Speech: speech normal Psych affect normal Assessment & Plan Assessment/Plan (1) Small bowel obstruction: PLAN: Plan 1. Small bowel obstruction-this appears to have resolved at this time, patient is on a regular diet, he will be reevaluated tomorrow #2 paroxysmal atrial fibrillation-remains in sinus rhythm at this time, patient states that he does not want to take anticoagulation #3 coronary artery disease-stable at this time with preserved left ventricular systolic function #4 essential hypertension-patient's remain on his present medication Total clinical time spent by myself addressing patient's medical issues, reviewing all of his data, and collaborating with patient's care team: 35 minutes Charges/Coding Visit Charges Inpatient E&M: 34712 Subs Hosp L2
--- NOTE | 2023-05-14 18:46 | PN.GI_ITS ---
Subjective Subjective I had a long talk today with the patient at the bedside. He is feeling better and tolerating a diet. We discussed the risk and benefits of medical therapy for inflammatory bowel disease. He is in good spirits. 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 Objective Data Objective Data Vital Signs: Vital Signs Temp Pulse Resp BP Pulse Ox O2 Del Method 98.5 F 57 L 18 123/64 H 98 Room Air 05/14/23 15:00 05/14/23 15:00 05/14/23 15:00 05/14/23 15:00 05/14/23 15:00 05/14/23 15:00 Oxygen Delivery Method Room Air Weight: 171 lb 11.841 oz Body Mass Index (BMI) 24.6 Intake & Output: Intake and Output for Last 24 Hours 05/12/23 05/13/23 05/14/23 23:59 23:59 23:59 Intake Total 4756.2533 / 4756.2533 3203.75 / 3203.75 2110 / 2110 Output Total 500 / 500 2825 / 2825 1325 / 1325 Balance 4256.2533 / 4256.2533 378.75 / 378.75 785 / 785 Lab / Micro Data 05/14/23 05:29 05/13/23 04:05 Labs: Laboratory Results - last 24 hr 05/14/23 05:29: WBC 4.5, RBC 4.52 L, Hgb 14.0, Hct 40.9, MCV 90.5, MCH 31.0, MCHC 34.2, RDW Std Deviation 44.0 H, RDW Coeff of Navneet 13.2, Plt Count 191, MPV 9.4, Immature Gran % (Auto) 0.400, Neut % (Auto) 67.7, Lymph % (Auto) 17.6 L, [place] % (Auto) 9.9, Eos % (Auto) 3.7, Baso % (Auto) 0.7, Absolute Neuts (auto) 3.1, Absolute Lymphs (auto) 0.80 L, Nucleated RBC % 0 Radiography Diagnostic Testing: Radiology Impression Enterography MRI 05/13/23 08:36 IMPRESSION: Limited study due to suboptimal distention of small bowel. Despite limitations: Few short segment loops of small bowel demonstrate circumferential wall thickening with mild mucosal hyperenhancement could represent a mild acute flare of Crohn''s disease. No definite stricture or fistula, however evaluation is limited due to suboptimal distention of the bowel. Cannot determine transition point of small bowel obstruction on this scan either. Acute sigmoid diverticulitis. No focal fluid collection or free air. Other chronic findings as above. Electronically Signed: Wood Varma MD at 21:46 EDT , Rhythm Strip Rhythm Strip: Sinus Rhythm Rate: 76 Ectopy: None Physical Exam Narrative alert, oriented x3, no apparent distress, average body habitus and healthy ap pearing General Appearance: cooperative, well kempt and well developed Orientation / Consciousness: awake, oriented to person, oriented to place and oriented to time HEENT normocephalic, head/scalp atraumatic and moist oral mucous membranes Eyes PERRL, EOMs intact bilaterally and conjunctivae normal Neck supple, no JVD, thyroid normal and no carotid bruits General: trachea midline Resp normal respiratory effort, no retractions, no use of accessory muscles and clear to auscultation bilaterally Auscultation: Negative for rales, rhonchi or wheezes Cardio regular rate, regular rhythm, S1 normal heart sound, S2 normal heart sound, no murmurs, no rub and no gallops GI soft to palpation, non-tender and non-distended Auscultation: hypoactive bowel sounds Extremity no clubbing, cyanosis or edema Skin no rashes or lesions noted General Skin Exam: no breakdown Neuro oriented x3, CN's II-XII intact bilaterally, moves all extremities, no focal motor deficits and no sensory deficits noted Sensorium / Orientation: awake, alert, oriented to person, oriented to place and oriented to time Speech: speech normal Psych affect normal Assessment & Plan Assessment/Plan (1) Small bowel obstruction: (2) Crohn's disease: QUALIFIERS: Gastrointestinal tract location: small intestine Digestive disease complication type: with intestinal obstruction Qualified Code(s): K50.012 - Crohn's disease of small intestine with intestinal obstruction PLAN: Plan To [id number] gentleman with past medical history of Crohn's disease of the ileum and colon status post ileocolonic resection with [id number] ileocolonic anastomosis, atrial fibrillation, coronary artery disease hypertension presents with recurrent small bowel obstruction at the site of anastomosis. MRI shows mild enteritis likely secondary to inflammatory bowel disease. I expl ained to him the natural history of Crohn's disease. I think that he has had a very benign course and would benefit from therapy for inflammatory Crohn's disease and possible mild fibrostenotic. Risk and benefits of medical therapy were explained to the patient. I think that he should go on either steroids or budesonide. I would prefer budesonide however it is very expensive. We also discussed him going on Entyvio therapy what I think is a good option for him because its 4 times a year. I will draw labs for tuberculosis and hepatitis B to make sure he is a candidate for anti-Integrilin therapy.
[2023-05-14 20:33] VITALS: BP 147/82; PULSE 59; RESP 18; TEMP 37.1; O2SAT 95
[2023-05-14 21:14] LABS: Erythrocyte Sedimentation Rate 15 mm/hr (0-20)
[2023-05-14] MEDS: MethylPREDNISolone 125 MG/2 ML Vial 60 MG IV (21:18)
[2023-05-15 02:00] VITALS: BP 152/84; PULSE 59; RESP 16; TEMP 36.9; O2SAT 96
[2023-05-15] MEDS: 0.9% Normal Saline 1,000 ML 125 ML IV (05:13)
[2023-05-15 06:18] LABS: Absolute Lymphocyte Count 0.42 X10^3/uL (0.83-4.51); Absolute Neutrophil Count 3.5 X10^3/uL (2.0-7.7); Hemoglobin 14.7 g/dL (13.0-16.5); Lymphocyte # 0.42 X10^3/ul (0.83-4.51); Lymphocyte % 10.7 % (19-41); Mean Corp Hgb Conc 33.4 g/dL (32-36); Mean Corpuscular Hgb 29.8 pg (27.0-32.0); Mean Corpuscular Volume 89.2 fL (80-94); Mean Platelet Vol. 9.2 fl (6.2-12.0); Monocyte# 0.02 X10^3/uL; Monocyte% 0.5 % (0-10); NRBC Flagged by Analyzer 0 % (0-5); Neutrophil # 3.47 X10^3/uL (2.7-7.7); Neutrophil % 88.5 % (47-70); POSITIVE DIFFERENTIAL YES; Platelet Count 207 K/mm3 (150-450); RBC Distribution Width CV 13.2 % (11.6-14.6); RBC Distribution Width SD 43.2 fl (35.1-43.9); Red Blood Count 4.93 M/mm3 (4.6-6.2); White Blood Count 3.9 K/mm3 (4.4-11.0)
[2023-05-15 06:29] LABS: Differential Indicated SCAN CRITERIA MET
[2023-05-15 06:56] LABS: Differential Comment SCANNED
[2023-05-15 07:26] VITALS: BP 168/92; PULSE 74; RESP 16; TEMP 37.2; O2SAT 96
--- NOTE | 2023-05-15 07:35 | NURSING ---
patient educated on new order for prednisone to start this morning, patient verbalized the benefits of the medication, however stated prednisone raises blood pressure and I am taking meds to bring it down but then it will go right back up. I will make a deal, if I am sent home on it, I will take it later. If I am not ordered this at home, I wont take it here.
[2023-05-15] MEDS: Atenolol 50 MG Tablet PO (07:36)
[2023-05-15] MEDS: amLODIPine 5 MG Tablet PO (07:36)
--- NOTE | 2023-05-15 09:39 | DCINST_ITS ---
Discharge Instructions Diet Discharge Diet: - (soft low fiber diet) Activity Discharge Activity: Return to Normal Activity Weight Bearing Status: Full weight bearing Follow Up Care Test Results: Test results from this visit will be discussed in further detail at your follow- up appointment, if applicable. Discharge Plan Admission Admit Date/Time: 05/09/23 15:48 Primary Reason for Your Visit: small bowel obstruction Attending Provider: Carlos Sifuentes Primary Care Provider: Jaida Padron NP Consulting Providers: Luis Alberto Baumann; Erik Marie; Osei Stokes Discharge Orders/Prescriptions Prescriptions: New amlodipine 5 mg Tablet 5 mg PO DAILY Qty: 30 0RF atenolol 50 mg Tablet 50 mg PO DAILY Qty: 30 0RF budesonide 3 mg capsule,delayed,extend.release 9 mg PO DAILY Qty: 90 0RF Continued aspirin [Adult Low Dose Aspirin] 81 mg tablet,delayed release (DR/EC) 81 mg PO DAILY acetaminophen [Acetaminophen Extra Strength] 500 mg tablet 1,000 mg PO Q6H PRN (Reason: pain) Discontinued atenolol 25 mg tablet 25 mg PO BID Patient Comments: PT STATES ONLY TAKES NEEDED. lisinopril 10 mg tablet 10 mg PO DAILY nitroglycerin 0.4 mg Tablet, Sublingual 0.4 mg sublingual Q5M PRN (Reason: Cardiac/Chest Pain) Qty: 30 0RF nifedipine 60 mg tablet extended release 60 mg PO DAILY Referrals / Follow Up: Erik Marie MD [Med Staff - Active Staff] - 06/25/23 1:00 pm (appointment with Anastasia Burleson) Carlos Sifuentes MD [Med Staff - Active Staff] - See Referral Note (two weeks) Luis Alberto Baumann DO [Med Staff - Active Staff] - See Referral Note (call office for appointment) Jaida Padron NP, [employer] [Primary Care Provider] - Disposition Disposition (needs filled in before D/C Order can be placed): Home, Self Care
--- NOTE | 2023-05-15 09:45 | PN.SURG_ITS ---
Subjective Subjective Patient seen and examined during AM rounds. He denies any abdominal discomfort. He states that he is still hiccuping, but attributes this to his recent nasogastric tube insertion. He initially denied a bowel movement, but later was notified by the floor that he experienced a bowel movement. He reported tolerance of his soft diet without subsequent nausea or vomiting. Objective Data Objective Data Vital Signs: Vital Signs Temp Pulse Resp BP Pulse Ox O2 Del Method 98.9 F 74 16 168/92 H 96 Room Air 05/15/23 07:26 05/15/23 07:26 05/15/23 07:26 05/15/23 07:26 05/15/23 07:26 05/15/23 08:00 Oxygen Delivery Method Room Air Weight: 171 lb 11.841 oz Body Mass Index (BMI) 24.6 Intake & Output: Intake and Output for Last 24 Hours 05/13/23 05/14/23 05/15/23 23:59 23:59 23:59 Intake Total 3203.75 / 3203.75 2949.58 / 3171.58 1549.92 / 1549.92 Output Total 2825 / 2825 1950 / 2300 1850 / 1850 Balance 378.75 / 378.75 999.58 / 871.58 -300.08 / -300.08 Lab / Micro Data 05/15/23 05:53 05/13/23 04:05 Labs: Laboratory Results - last 24 hr 05/14/23 05:29: ESR 15, C-React Prot Ext Range 11.30 H 05/15/23 05:53: WBC 3.9 L, RBC 4.93, Hgb 14.7, Hct 44.0, MCV 89.2, MCH 29.8, MCHC 33.4, RDW Std Deviation 43.2, RDW Coeff of Navneet 13.2, Plt Count 207, MPV 9.2, Immature Gran % (Auto) 0.300, Neut % (Auto) 88.5 H, Lymph % (Auto) 10.7 L, [place] % (Auto) 0.5, Eos % (Auto) 0.0, Baso % (Auto) 0.0, Absolute Neuts (auto) 3.5, Absolute Lymphs (auto) 0.42 L, Nucleated RBC % 0, Differential Comment SCANNED, Diff Path Review February, Stool Calprotectin Cancelled, Stool Pancreat Elastase Cancelled Rhythm Strip Rhythm Strip: Sinus Rhythm Rate: 76 Ectopy: None Physical Exam Const oriented x3 and no apparent distress Resp normal respiratory effort GI GI Narrative: Nondistended, soft, nontender to palpation x4 quadrants Assessment & Plan Assessment/Plan (1) Small bowel obstruction: PLAN: Patient is a 73-year-old male with history of Crohn's disease status post right hemicolectomy and subsequent small bowel obstructions who presents with signs and symptoms of another small bowel obstruction. Patient has experienced return of bowel function and tolerated advancement to a soft regular diet. GI has reevaluated patient and plans are to begin medical management for Crohn's. Cardiology is also made some adjustments to patient's medications for continuation on outpatient status. Given patient's clinical improvements, he seems fit for discharge today. Neuro: No current discomfort Pulm/CV: I-S, A-fib and hypertension management per cardiology who recommends resumption of beta-sammy FEN/GI: Trend electrolytes, BRYSON resolved, continue soft low residue diet, plan is to start budesonide per GI for Crohn's : No current issues apart from BRYSON discussed above Heme/ID: No current issues Endo: No current issues Proph: Apply SCDs Dispo: Okay for discharge to home Charges/Coding Visit Charges Inpatient E&M: 18432 Subs Hosp L2
--- NOTE | 2023-05-15 09:55 | PCM.DC.SUM ---
Providers Date of Admission: 05/09/23 Primary Care Physician: AMY Phillips Consultations 05/09/23 11:49 Consult: Gastroenterology Routine Consulting Provider: Luis Alberto Baumann Reason for Consult: h/o small bowel stricture and IBD EMERGENT Consult: No MD Notified: Yes Date Notified: 05/09/23 Time Notified: 11:51 Method of Notification: Verbal Consult: Hospitalist Routine Consulting Provider: Audrey Petersen Reason for Consult: assist with management of comorbidities EMERGENT Consult: No MD Notified: Yes Date Notified: 05/09/23 Time Notified: 11:51 Method of Notification: ED Physician Initiated 05/10/23 07:52 Consult: Cardiology Routine Consulting Provider: Erik Marie Reason for Consult: afib with RVR EMERGENT Consult: No MD Notified: Yes Date Notified: 05/09/23 Time Notified: 19:09 Method of Notification: Text Reason For Visit: SBO Diagnosis Discharge Diagnosis (1) Small bowel obstruction: Status: Acute Code(s): K56.609 - Unspecified intestinal obstruction, unspecified as to partial versus complete obstruction Plan: Patient is a 73-year-old male with history of Crohn's disease status post right hemicolectomy and subsequent small bowel obstructions who presents with signs and symptoms of another small bowel obstruction. Patient has experienced return of bowel function and tolerated a diet advancement to liquids. He completed MR enterography yesterday which was read by radiology last evening as consistent with possible mild Crohn's flare. We are awaiting reevaluation with gastroenterology, but I have received the go-ahead to advance patient's diet as tolerated and will do so this morning. Neuro: Discontinue Dilaudid Pulm/CV: I-S, A-fib and hypertension management per cardiology who recommends resumption of beta-sammy FEN/GI: Trend electrolytes, BRYSON resolved, advance to soft low residue diet : No current issues apart from BRYSON discussed above Heme/ID: No current issues Endo: No current issues Proph: Apply SCDs Dispo: Continue PCU stay with evaluation of tolerance of diet. Anticipate possible discharge to home tomorrow (2) Crohn's disease: Status: Acute Code(s): K50.90 - Crohn's disease, unspecified, without complications Qualifiers: Digestive disease complication type: with intestinal obstruction Gastrointestinal tract location: small intestine Qualified Code(s): K50.012 - Crohn's disease of small intestine with intestinal obstruction Medications at Discharge Home Medications acetaminophen 500 mg tablet (Acetaminophen Extra Strength) 1,000 mg PO Q6H PRN pain 05/09/23 aspirin 81 mg tablet,delayed release (Adult Low Dose Aspirin) 81 mg PO DAILY 05/09/23 amlodipine 5 mg tablet 5 mg PO DAILY #30 tabs 05/15/23 atenolol 50 mg tablet 50 mg PO DAILY #30 tabs 05/15/23 budesonide 3 mg capsule,delayed,extended release 9 mg (3 x 3 mg) PO DAILY #90 ea 05/15/23 Hospital Course Operations None Procedures Cardioversion (Chemical cardioversion with Cardizem) and EKG Summary of Care Provided Hospital Course: Patient is a 73-year-old male who presented to [facility] ER on 05/09/2023 with signs and symptoms of a small bowel obstruction. Nasogastric tube was placed and he was admitted to the [facility] floor. Later the day of admission he experienced atrial fibrillation with rapid ventricular response and was transferred to the progressive care unit for telemetry monitoring as well as administration of Cardizem by the hospitalist service which she had been previously consulted. By the next morning he had chemically cardioverted to normal sinus rhythm and expressed some signs of return of bowel function. However, along with the hospitalist consult, gastroenterology was also consulted given patient's history of inflammatory bowel disease and recommended a small bowel follow-through. This was completed 05/10/2023 and the contrast passed unimpeded to the colon. This same day a cardiology consult was made on the account of patient's atrial fibrillation and work was begun optimizing both his arrhythmia as well as his hypertension. Unfortunately patient's small bowel follow-through did not highlight well the area of concern in the distal small bowel and I remained concerned that a operation for resection and reconstruction of patient's ileocolic anastomosis would not be beneficial as it appeared his transition point was more proximal to his anastomosis. Therefore, a conversation was held with gastroenterology and we resolved to perform a MR enterography study. This was unavailable through the weekend so patient was simply slowly graduated through his diets with demonstration of tolerance. On 05/13/2023 he completed the MR study and radiology read it as consistent with mild Crohn's. On review by gastroenterology they stated that patient could be considered a candidate for medical therapy given that his disease was not fibrostenotic and after a conversation with Mr. Sigala, they resolved to initiate treatment with oral budesonide. After further demonstration of tolerance of a regular soft diet this morning and another normal bowel movement, patient was granted discharge to home with medication changes as recommended per cardiology and gastroenterology. Physical Exam GI GI Narrative: Nondistended, soft, nontender to palpation x4 quadrants Weight / BMI Weight Weight: 171 lb 11.841 oz Body Mass Index (BMI) 24.6 ABG / Lab / Microbiology Data 05/15/23 05:53 05/13/23 04:05 Laboratory: Laboratory Results - last 24 hr 05/14/23 05:29: ESR 15, C-React Prot Ext Range 11.30 H 05/15/23 05:53: WBC 3.9 L, RBC 4.93, Hgb 14.7, Hct 44.0, MCV 89.2, MCH 29.8, MCHC 33.4, RDW Std Deviation 43.2, RDW Coeff of Navneet 13.2, Plt Count 207, MPV 9.2, Immature Gran % (Auto) 0.300, Neut % (Auto) 88.5 H, Lymph % (Auto) 10.7 L, [place] % (Auto) 0.5, Eos % (Auto) 0.0, Baso % (Auto) 0.0, Absolute Neuts (auto) 3.5, Absolute Lymphs (auto) 0.42 L, Nucleated RBC % 0, Differential Comment SCANNED, Diff Path Review February foll, Stool Calprotectin Cancelled, Stool Pancreat Elastase Cancelled D/C Instructions Discharge Diet: - (soft low fiber diet) Weight Bearing Status: Full weight bearing Meaningful Use Info Meaningful Use Diagnoses (Choose all that apply): None applicable Discharge Plan Admission Admit Date/Time: 05/09/23 15:48 Primary Reason for Your Visit: small bowel obstruction Attending Provider: Carlos Sifuentes Primary Care Provider: Jaida Padron [employer] Consulting Providers: Pastor,Luis Alberto; Erik Marie; Osei Stokes Discharge Orders/Prescriptions Prescriptions: New amlodipine 5 mg Tablet 5 mg PO DAILY Qty: 30 0RF atenolol 50 mg Tablet 50 mg PO DAILY Qty: 30 0RF budesonide 3 mg capsule,delayed,extend.release 9 mg PO DAILY Qty: 90 0RF Continued aspirin [Adult Low Dose Aspirin] 81 mg tablet,delayed release (DR/EC) 81 mg PO DAILY acetaminophen [Acetaminophen Extra Strength] 500 mg tablet 1,000 mg PO Q6H PRN (Reason: pain) Discontinued atenolol 25 mg tablet 25 mg PO BID Patient Comments: PT STATES ONLY TAKES NEEDED. lisinopril 10 mg tablet 10 mg PO DAILY nitroglycerin 0.4 mg Tablet, Sublingual 0.4 mg sublingual Q5M PRN (Reason: Cardiac/Chest Pain) Qty: 30 0RF nifedipine 60 mg tablet extended release 60 mg PO DAILY Referrals / Follow Up: Erik Marie MD [Med Staff - Active Staff] - 06/25/23 1:00 pm (appointment with Anastasia Burleson) Carlos Sifuentes MD [Med Staff - Active Staff] - See Referral Note (two weeks) Luis Alberto Baumann DO [Med Staff - Active Staff] - See Referral Note (call office for appointment) Jaida Padron NP, [employer] [Primary Care Provider] - Disposition Disposition (needs filled in before D/C Order can be placed): Home, Self Care Charges/Coding Visit Charges Inpatient E&M: 72919 Disch Hosp
--- NOTE | 2023-05-15 10:16 | PCM.PN.HOSP ---
Reason for Visit Reason for Visit: Diagnoses Essential (primary) hypertension (05/09/23) Atherosclerotic heart disease of [place] coronary artery without angina pectoris (05/09/23) Atherosclerosis of coronary artery bypass graft(s) without angina pectoris (05/09/23) Paroxysmal atrial fibrillation (05/09/23) Crohn's disease of small intestine with intestinal obstruction (05/09/23) Unspecified intestinal obstruction, unspecified as to partial versus complete obstruction (05/09/23) Subjective Subjective Patient was seen and examined, he is having bowel movements today and I talked with surgery and they are okay with him being discharged. Gastroenterology wants the patient on Entocort, I phoned in the prescription to our pharmacy downstairs. Objective Data Objective Data Vital Signs: Vital Signs Temp Pulse Resp BP Pulse Ox O2 Del Method 98.9 F 74 16 168/92 H 96 Room Air 05/15/23 07:26 05/15/23 07:26 05/15/23 07:26 05/15/23 07:26 05/15/23 07:26 05/15/23 08:00 Oxygen Delivery Method Room Air Weight: 77.9 kg Body Mass Index (BMI) 24.6 Intake & Output: Intake and Output for Last 24 Hours 05/13/23 05/14/23 05/15/23 23:59 23:59 23:59 Intake Total 3203.75 / 3203.75 2949.58 / 3171.58 1549.92 / 1549.92 Output Total 2825 / 2825 1950 / 2300 1850 / 1850 Balance 378.75 / 378.75 999.58 / 871.58 -300.08 / -300.08 Lab / Micro Data 05/15/23 05:53 05/13/23 04:05 Labs: Laboratory Results - last 24 hr 05/14/23 05:29: ESR 15, C-React Prot Ext Range 11.30 H 05/15/23 05:53: WBC 3.9 L, RBC 4.93, Hgb 14.7, Hct 44.0, MCV 89.2, MCH 29.8, MCHC 33.4, RDW Std Deviation 43.2, RDW Coeff of Navneet 13.2, Plt Count 207, MPV 9.2, Immature Gran % (Auto) 0.300, Neut % (Auto) 88.5 H, Lymph % (Auto) 10.7 L, [place] % (Auto) 0.5, Eos % (Auto) 0.0, Baso % (Auto) 0.0, Absolute Neuts (auto) 3.5, Absolute Lymphs (auto) 0.42 L, Nucleated RBC % 0, Differential Comment SCANNED, Diff Path Review February, Stool Calprotectin Cancelled, Stool Pancreat Elastase Cancelled Rhythm Strip Rhythm Strip: Sinus Rhythm Rate: 76 Ectopy: None Physical Exam Const alert, oriented x3, no apparent distress and healthy appearing General Appearance: cooperative, well kempt and well developed Orientation / Consciousness: awake, oriented to person, oriented to place and oriented to time HEENT normocephalic and moist oral mucous membranes Eyes PERRL, EOMs intact bilaterally and conjunctivae normal Neck supple, no JVD, thyroid normal and no carotid bruits General: trachea midline Resp normal respiratory effort and clear to auscultation bilaterally Auscultation: Negative for rales, rhonchi or wheezes Cardio regular rate, regular rhythm, no murmurs, no rub and no gallops GI normal to inspection, nondistended, normoactive bowel sounds, soft to palpation, non-tender and non-distended Extremity no clubbing, cyanosis or edema Skin no rashes or lesions noted General Skin Exam: no breakdown Neuro oriented x3, CN's II-XII intact bilaterally, no focal motor deficits and no sensory deficits noted Sensorium / Orientation: awake and alert Speech: speech normal Psych affect normal Assessment & Plan Assessment/Plan (1) Crohn's disease: QUALIFIERS: Gastrointestinal tract location: small intestine Digestive disease complication type: with intestinal obstruction Qualified Code(s): K50.012 - Crohn's disease of small intestine with intestinal obstruction (2) Small bowel obstruction: PLAN: Plan 1. Small bowel obstruction-this appears to have resolved at this time, patient is on a regular diet, he appears safe for discharge #2 paroxysmal atrial fibrillation-remains in sinus rhythm at this time, patient states that he does not want to take anticoagulation #3 coronary artery disease-stable at this time with preserved left ventricular systolic function #4 essential hypertension-patient's remain on his present medication #5 Crohn's disease-according to GI, patient will be on Entocort and follow-up with gastroenterology. Total clinical time spent by myself addressing patient's medical issues, reviewing all of his data, and collaborating with patient's care team: 35 minutes Charges/Coding Visit Charges Inpatient E&M: 93804 Subs Hosp L2
--- NOTE | 2023-05-15 10:23 | CASEMGMT ---
RN CM in to discuss needs at discharge. Patient denies needs at discharge at this time. MARY AVILA updated patient in regarding to prescription cost at [facility]. Patient making arrangement to have wallet brought in by his friend. Patient had no further questions or concerns at this time.
--- NOTE | 2023-05-15 10:54 | PHA.DC_ITS ---
Pharmacy [facility] has performed discharge medication reconciliation and counseling for this patient. Prescriptions called down to retail by doctor. Patient requested this [facility] find out the total cost so his ride can bring payment. Call to retail, total cost is $21.83, nurse already aware and told patient total cost. 1. AMLODIPINE 5MG PO DAILY 2. BUDESONIDE 9MG PO DAILY The patient's discharge medication list was reviewed for discrepancies and discrepancies were resolved. The patient was counseled on the following discharge medications and changes in medications for homegoing were reviewed. The Reason for Use, instructions for use, and potential side effects were reviewed for all new medications. The patient's questions regarding all of their medications were answered. The patient was able to verbally demonstrate an understanding of their discharge medications. Patient counseled by pharmacy technologistOdalis. Medications at Discharge Home Medications acetaminophen 500 mg tablet (Acetaminophen Extra Strength) 1,000 mg PO Q6H PRN pain 05/09/23 aspirin 81 mg tablet,delayed release (Adult Low Dose Aspirin) 81 mg PO DAILY 05/09/23 amlodipine 5 mg tablet 5 mg PO DAILY #30 tabs 05/15/23 atenolol 50 mg tablet 50 mg PO DAILY #30 tabs 05/15/23 budesonide 3 mg capsule,delayed,extended release 9 mg (3 x 3 mg) PO DAILY #90 ea 05/15/23
[2023-05-16 05:07] LABS: HEPATITIS B SURFACE AG Negative (Negative); Hep C Antibodies Non Reactive (Non Reactive); Hepatitis A IgM Antibody Negative (Negative); Hepatitis B Core AB IgM Negative (Negative)
[2023-05-16 16:10] LABS: Anti-Centromere B Ab <0.2 AI (0.0-0.9); Anti-Chromatin <0.2 AI (0.0-0.9); Anti-Jo <0.2 AI (0.0-0.9); Anti-Scleroderma-70 AB <0.2 AI (0.0-0.9); Anti-dsDNA Ab 1 IU/mL (0-9); RNP Ab <0.2 AI (0.0-0.9); SJOGREN'S Anti-SS-A test < 0.2 AI (0.0-0.9); SJOGREN'S Anti-SS-B test < 0.2 AI (0.0-0.9); Smith Ab <0.2 AI (0.0-0.9)
[2023-05-17 09:52] LABS: Pathologist Review Reviewed
[2023-05-17 18:07] LABS: Cytoplasmic Ab (C-ANCA) <1:20 titer (Neg:<1:20); Perinuclear Ab (P-ANCA) <1:20 titer (Neg:<1:20); QNTFERON TB Nil Value 0.03 IU/mL (.); QNTFERON TB1+ Ag Value 0.06 IU/mL (.); QNTFERON TB2+ Ag Value 0.04 IU/mL (.); QNTIFERON TB Positive Criteria Negative (Negative)
[2023-05-17 20:08] LABS: Calprotectin, Stool 296 ug/g (0-120); Fats, Neutral Normal (.); Fats, Total Normal (.)
[2023-05-18 00:07] LABS: Pancreatic Elastase, Fecal > 500 (>200)
== END 2023-05-15 11:01 | disposition home or self-care (01) | DRG 387 ==
LOC: ED 09:14 → MS3 10:59 → PCU 05-10 09:07
PROVIDERS: Internal Medicine Gastroenterology; Student in an Organized Health Care Education/Training Program; Surgery; Admitting Provider Surgery; Emergency Provider Emergency Medicine; PCP Nurse Practitioner Family; Visit Provider Surgery
DX: K50.012 Crohn's disease of small intestine with intestinal obstruction (principal); I12.9 Hypertensive chronic kidney disease with stage 1 through stage 4 chronic kidney disease, or unspecified chronic kidney disease; N18.30 Chronic kidney disease, stage 3 unspecified; I48.0 Paroxysmal atrial fibrillation; I25.10 Atherosclerotic heart disease of native coronary artery without angina pectoris; I25.2 Old myocardial infarction; Z98.0 Intestinal bypass and anastomosis status; Z95.1 Presence of aortocoronary bypass graft; Z95.5 Presence of coronary angioplasty implant and graft; Z90.49 Acquired absence of other specified parts of digestive tract; Z79.82 Long term (current) use of aspirin; Z79.899 Other long term (current) drug therapy
CPT/HCPCS: 36415; 74018; 74176; 74183; 74250; 80048; 80053; 80074; 81001; 82653; 82705; 83605; 83735; 83993; 84100; 84443; 84484; 85025; 85652; 86140; 86225; 86235; 86256; 86480; 93005; 93306; 94668; 99285; A9575; J7030; J7040; A4216; J1610; J2405